=== PATIENT | male | born 1955 | race Caucasian/White ===

== ENCOUNTER 2019-06-06 14:47 | Emergency (ER) | payer BC ==
[2019-06-06 16:01] LABS: #Basophils 0.1 thou/uL (0.0-0.2); #Eosinphils 0.2 thou/uL (0.0-0.7); #Lymphocytes 2.3 thou/uL (1.20-3.40); #Monocytes 0.8 thou/uL (0.11-0.59); #Neutrophils 4.2 thou/uL (1.40-6.50); %Eosinophils 2.8 % (0.0-10.0); %Lymphocytes 30.5 % (21.0-51.0); %Monocytes 10.8 % (0.0-10.0); %Neutrophils 54.9 % (42.0-75.0); Hemoglobin 15.2 g/dL (14.0-18.0); Mean Corpuscular HGB CONC 35.1 g/dL (32.0-36.0); Mean Corpuscular Hemoglobin 31.6 pg (27.0-31.0); Mean Corpuscular Volume 90.1 fL (78.0-98.0); Mean Platelet Volume 7.4 fL (7.4-10.4); Platelet Count 218 thou/uL (130-400); RBC Distribution Width 13.1 % (11.5-14.5); White Blood Cell (WBC) Count 7.7 thou/uL (4.8-10.8)
[2019-06-06 16:28] LABS: ALT (SGPT) 18 U/L (8-55); AST (SGOT) 16 U/L (5-34); Albumin 4.5 g/dL (3.4-4.8); Alkaline Phosphatase 56 U/L (40-150); Anion Gap 11 mmol/L (10-20); BUN (Urea Nitrogen) 21 mg/dL (8.4-25.7); Bilirubin, Total 0.8 mg/dL (0.2-1.2); Calc. Creatinine Clearance 0 mL/min (70-130); Carbon Dioxide 26 mmol/L (23-31); Chloride 103 mmol/L (98-107); Estimated GFR-MDRD 59; Globulin 2.4 g/dL (2.4-3.5); Glucose 108 mg/dL (80-115); Potassium 4.3 mmol/L (3.5-5.1); Protein, Total 6.9 g/dL (5.8-8.1); Sodium 136 mmol/L (136-145)
--- NOTE | 2019-06-06 17:14 | RAD ---
EXAM: CHEST ONE VIEW PORTABLE: 06/06/19 HISTORY: Multiple strokes. Numbness of tongue. COMPARISON: 10/29/08. FINDINGS: Heart size is within normal limits. The lungs are clear. No confluent pneumonia, overt edema, or pleu ral effusion. IMPRESSION: No acute intrathoracic disease, stable from prior study. POS: ENRIKE
--- NOTE | 2019-06-06 17:42 | CT ---
CT Brain WO Con: 06/06/2019 4:46 PM CLINICAL HISTORY: History of stroke with numbness in the tongue. IMAGING TECHNIQUE: Multiple CT images were obtained of the brain without IV contrast. COMPARISON: None. FINDINGS: Infarct: No acute infarct is evident. There is mild chronic small vessel white matter ischemic gibbs e. Hemorrhage: None.. Hydrocephalus: None.. Basal cisterns: Normal.. Cerebral parenchyma: There is mild generalized cerebral atrophy.. Midline shift: None.. Cerebellum: Normal. Brainstem: Normal. OTHER: Calvarium: Intact.. Visualized Paranasal sinuses: Clear.. Extracranial soft tissues:Normal. IMPRESSION: No acute intracranial abnormality. Mild chronic small vessel white matter ischemic change. Mild cerebral atrophy
[2019-06-06 18:02] LABS: INR-International Normal Ratio 2.1; PTT 45.6 SEC (22.9-36.1); Prothrombin Time 23.8 SEC (12.0-14.7)
--- NOTE | 2019-06-08 12:07 | EKG ---
Test Reason : Blood Pressure : / mmHG Vent. Rate : 078 BPM Atrial Rate : 078 BPM P-R Int : 154 ms QRS Dur : 088 ms QT Int : 386 ms P-R-T Axes : 034 026 056 degrees QTc Int : 440 ms Normal sinus rhythm Normal ECG Confirmed by LATONIA BELL MD ([id number]), makeup editor KARI FLORES ([id number]) on 06/08/2019 12:06:49 PM Referred By: Confirmed By:LATONIA BELL MD
== END 2019-06-06 19:10 | disposition home or self-care (01) ==
LOC: ERS 14:47
DX: R42 Dizziness and giddiness (principal); E03.9 Hypothyroidism, unspecified; Z79.899 Other long term (current) drug therapy; Z79.01 Long term (current) use of anticoagulants
CPT/HCPCS: 36415; 70450; 71045; 80053; 85025; 85610; 85730; 93005

== ENCOUNTER 2019-10-14 09:35 | Inpatient (IN) | payer BC ==
--- NOTE | 2019-10-14 09:52 | CT ---
EXAM: CT brain without contrast HISTORY: Right arm weakness and facial drooping. COMPARISON: 06/06/2019 TECHNIQUE: Multiple contiguous axial images were obtained and a CT of the brain without contrast. FINDINGS: There is an area of encephalomalacia in the left temporal lobe which has developed since th e prior examination. Nonspecific hypodensity is seen in the right cerebellar hemisphere. There is no evidence of hydrocephalus, intracranial hemorrhage, or extra-axial fluid collection. The calvarium and overlying soft tissues are unremarkable. The visualized paranasal sinuses and masto id air cells are well aerated. IMPRESSION: 1. Nonspecific hypodensity in the right cerebellar hemisphere could potentially represent an acute in farction. 2. Development of encephalomalacia in the left temporal lobe likely represents a remote area of infar ction. Dr. Tovar notified of findings at 9:50 AM on 10/14/2019.
[2019-10-14 09:59] LABS: #Basophils 0.1 thou/uL (0.0-0.2); #Eosinphils 0.2 thou/uL (0.0-0.7); #Lymphocytes 1.7 thou/uL (1.20-3.40); #Monocytes 0.8 thou/uL (0.11-0.59); #Neutrophils 4.2 thou/uL (1.40-6.50); %Basophils 0.9 % (0.0-1.0); %Eosinophils 2.8 % (0.0-10.0); %Lymphocytes 24.5 % (21.0-51.0); %Monocytes 10.9 % (0.0-10.0); %Neutrophils 60.9 % (42.0-75.0); Hemoglobin 15.1 g/dL (14.0-18.0); Mean Corpuscular HGB CONC 34.4 g/dL (32.0-36.0); Mean Corpuscular Hemoglobin 31.8 pg (27.0-31.0); Mean Corpuscular Volume 92.4 fL (78.0-98.0); Mean Platelet Volume 7.1 fL (7.4-10.4); Platelet Count 211 thou/uL (130-400); RBC Distribution Width 12.6 % (11.5-14.5); Red Blood Cell (RBC) Count 4.74 mill/uL (4.70-6.10); White Blood Cell (WBC) Count 6.9 thou/uL (4.8-10.8)
[2019-10-14 10:05] LABS: INR-International Normal Ratio 1.2; PTT 30.6 SEC (22.9-36.1); Prothrombin Time 14.9 SEC (12.0-14.7)
[2019-10-14 10:18] LABS: ALT (SGPT) 30 U/L (8-55); AST (SGOT) 23 U/L (5-34); Albumin 4.1 g/dL (3.4-4.8); Alkaline Phosphatase 67 U/L (40-110); Anion Gap 13 mmol/L (10-20); BUN (Urea Nitrogen) 13 mg/dL (8.4-25.7); Bilirubin, Total 0.8 mg/dL (0.2-1.2); CK (CPK) 49 U/L (30-200); Calc. Creatinine Clearance 0 mL/min (70-130); Carbon Dioxide 23 mmol/L (23-31); Chloride 106 mmol/L (98-107); Estimated GFR-MDRD 66; Globulin 1.9 g/dL (2.4-3.5); Glucose 124 mg/dL (80-115); Potassium 4.5 mmol/L (3.5-5.1); Sodium 137 mmol/L (136-145)
--- NOTE | 2019-10-14 10:32 | CT ---
CT angiogram head CT angiogram neck: 10/14/2019 COMPARISON: None HISTORY: Level 1 stroke, right arm weakness and right-sided facial droop TECHNIQUE: Axial CT imaging at 1.25 mm intervals through the head and neck with IV contrast using CT angiogram protocol with coronal and sagittal 3-D reformatted imaging FINDINGS: Imaged lung apices are unremarkable. The imaged paranasal sinuses and mastoid air cells are well aerated. The retroantral fat and the parapharyngeal fat is clear bilaterally. Bilateral parotid and submandibu lar glands are unremarkable. Limited assessment of the aerodigestive tract demonstrates no acute findings. There are 2 borderline enlarged lymph nodes within the neck on the left measuring up to 1 cm at the a xial level of the thyroid gland. A bovine arch is noted. There is an unremarkable appearance at the origin of the innominate artery, r ight subclavian artery, right common carotid artery, left common carotid artery, left subclavian artery. Origin of the left vertebral artery is grossly unremarkable, partially obscured by venous contrast. R ight vertebral artery origin is unremarkable. There is no hemodynamically significant stenosis involving the vertebral artery on either side. On the basis of NASCET criteria, no hemodynamically significant stenosis of the common carotid or int ernal carotid artery noted on either side. At the origin of the internal carotid artery on the left there is a focal area atherosclerotic plaque representing a combination of hard and soft plaque, del uring approximately 1.4 cm in craniocaudal dimension. The basilar artery is patent. There is a moderate degree of stenosis involving the distal aspect of t he basilar artery, best seen on axial image 209 and coronal image 54. There is mild stenosis at the origin of the right P1 segment and there is moderate stenosis at the origin of the left P1 segment. There is a filling defect within the distal aspect of the M1 segment on the left measuring approximat yane 6 mm in length, best seen on axial image 213 extending to the level of the M1 bifurcation. M2 branches appear patent on the left. M1 segment on the right is patent. Anterior cerebral arteries and A1 segment appear unremarkable bila terally. Review of osseous structures demonstrates no worrisome lytic or blastic lesions. IMPRESSION: There is a distal left M1 thrombus involving the distal 6 mm of the left M1 segment. Areas of stenosis involving the posterior circulation including the distal basilar artery and the pro ximal aspect of the P1 segments bilaterally. Results were discussed with Dr. Tovar at 1020 AM 10/14/2019.
--- NOTE | 2019-10-14 12:47 | CT ---
CT angiogram head CT perfusion of the head: 10/14/2019 11:39 AM COMPARISON: CT angiogram of the head performed earlier on 10/14/2019 HISTORY: Distal M1 clot noted on the left on prior CT angiogram TECHNIQUE: Axial CT imaging obtained at 1.25 mm intervals from vertex through skull base with IV cont rast using CT angiogram protocol. In addition, CT perfusion maps were obtained of the brain FINDINGS: Repeat CT angiogram imaging demonstrates a focal area of moderate stenosis involving the di stal aspect of the basilar artery, best seen on axial image 101. Bilateral posterior cerebral arteries are patent. There is proximal P1 stenosis bilaterally, mild/moderate in severity, left great er than right. As seen on the prior examination, there is a focal area of thrombosis of the distal M1 segment on the left. Distal left M1 segment appears expanded. M2 branches on the left appear patent. Right A1 segment and left A1 segment patent. Bilateral anterior cerebral arteries appear patent. M1 s egment on the right and right MCA bifurcation appear unremarkable. CT PERFUSION: The CT perfusion maps demonstrate a large area of increased mean transit time involving the majority of the MCA territory on the left. The axial blood volume imaging demonstrates slight increased blood volume within the MCA territory on the left and the arterial blood flow imaging demon strates slightly decreased blood flow within the MCA territory on the left. IMPRESSION: Clot with expansion involving the distal M1 segment on the left. The perfusion imaging gore ggest a large area of ischemia without evidence for are completed infarction involving the majority of the left MCA territory. Results were discussed with Dr. Nicole at approximately 12:40 PM 10/14/2019 .
[2019-10-14] MEDS ORDERED: Heparin 10,000 UNITS/1 ML VIAL ONE (12:51)
[2019-10-14] MEDS ORDERED: Heparin (Artline) 1,000 ML ONE (12:51)
--- NOTE | 2019-10-14 13:36 | CT ---
HEAD CT: DATE: 10/14/2019. TIME: 1:09 p.m. COMPARISON: 10/14/2019 at 9:42 a.m. History Acute stroke symptoms. FINDINGS: There has been interval development of a focal area of hyperdensity within the posterior left cerebra l hemisphere in the superior left temporoparietal region, best seen on image 17, measuring approximat yane 1.2 cm in transverse dimension. This is suspicious for interval development of a small focus of hemorrhage or enhancement. Nonspecific area of hyperenhancement would be atypical in this location. Hemorrhage could be confirmed with axial gradient echo sequence. There is mild prominence of the lateral ventricles, stable. Images paranasal sinuses and mastoid air cells are well aerated. IMPRESSION: Findings suspicious for possible interval development of a small focus of intracranial hemorrhage or abnormal enhancement measuring 1.1 cm on the left as detailed above. Perhaps this represents interva l development of an area of hemorrhage infarction. Axial gradient echo MRI could be performed acutel y to confirm possible hemorrhage in this region. Results discussed with Dr. Nicole at 1:20 p.m. 10/14/2019. CODE CR POS: SHABBIR
[2019-10-14] MEDS ORDERED: Ondansetron ODT 4 MG TAB SL PRN (13:40)
[2019-10-14] MEDS ORDERED: Ondansetron PF 4 MG/2 ML Vial IVP PRN (13:40)
[2019-10-14] MEDS ORDERED: Acetaminophen 325 MG TAB PO PRN (13:40)
--- NOTE | 2019-10-14 14:29 | CON ---
DATE OF CONSULTATION: 10/14/2019 Mr. Arredondo is a 64-year-old gentleman with a history notable for strokes dating back to this past summer. His states that over the past 4 to 5 weeks, he has also had a substantial cognitive decline to the point where he has been unable to work. He has also been recently diagnosed with partial seizures, which have been treated by Dr. Irizarry and manifest as difficulty with speech. This morning, shortly after 8 o'clock, she heard a noise and found her on the kitchen floor. He was able after that point in time to mobilize on his own to the bedroom where again she found him down after having fallen. At that point, he was unable to assist himself up. She activated EMS, and they brought him to the ER where he underwent imaging. He had a noncontrast CT performed, which was initially negative for hemorrhage. He had a CT angiogram performed thereafter, which suggested occlusion or partial occlusion of blood flow into the left distal aspect of the middle cerebral artery at the M1 segment. Of note, he does have a prior diagnosis of the MCA stenosis per notes from Dr. Irizarry, although I have not reviewed any imaging to reveal the degree of stenosis. Over the course of his ER evaluation, his symptoms could have fluctuated from almost back to baseline to difficulty with speech and right dense hemiparesis. These changes occurred several times over a few hours. He eventually underwent a CT perfusion study, which showed increased mean transit time, and no evidence of infarct. It did however reveal an abnormality on the left side, which prompted an updated CT scan, which showed evidence for hemorrhage. The patient is also on Xarelto. Due to the above findings, he was not given tPA. Secondary to hemorrhage, I chose not to pursue intervention. I did examine him right around the time of most recent CT scan, and his symptoms again were improving. He was antigravity, and he was able to speak. He did have a facial droop. Mr. Arredondo will be admitted to the ICU under the care of our hospitalist colleagues. He will need PT, OT and rehab evaluation. Should also consult Neurology for further evaluation. His symptoms are somewhat peculiar and that he has had waxing and waning symptoms with evidence of what may be ischemic stroke as well as hemorrhagic stroke. He has also had a rather abrupt cognitive decline over the past 4 weeks. Job ID: [id number] [facility]
[2019-10-14] MEDS ORDERED: hydrALAZINE 20 MG/ML VIAL SLOW IVP PRN (17:23)
--- NOTE | 2019-10-14 17:33 | HP ---
PRIMARY CARE PHYSICIAN: Unknown. NEUROLOGIST: Dr. Irizarry. CHIEF COMPLAINT: Altered mental status, starting at approximately 8:05 a.m. HISTORY OF PRESENT ILLNESS: A 64-year-old male with past medical history of paroxysmal atrial fibrillation, history of stroke in March 2019, hospitalized at [facility] of unclear etiology with negative Holter monitoring, placed on Xarelto and Lipitor, hypertension, and recent neurocognitive decline over the past 1 to 2 months, recently initiated on Aricept and weeks ago, suspected to have seizure-like activity, started on Keppra, who was at home this morning when heard a thud in the kitchen and found her in the kitchen floor at approximately 8:05 a.m. She helped to drag her up into the bed and noted that he was weak on the right side, but able to speak coherently. Minutes later , when she returned to the room, she noted that the patient had slid across the bed and again had fallen on the ground, again weak on the right side, but now with notable right facial droop and slurring of speech, prompting her to call EMS. En route to emergency department, the patient's neurological symptoms improved. An initial noncontrast head CT in the ER suggested a possible cerebellar infarction. The patient's neurological status declined to NIH Stroke Scale of 14 to 42. A CTA suggested a possible distal left M1 thrombus extending to the M1 bifurcation as well as stenosis in the posterior circulation and a focal plaque 1.4 cm in the left ICA origin. The patient's last dose of Xarelto was yesterday evening. Neuro-interventionalist was notified by the ER and initial plans were to take the patient to the cardiac catheterization lab. A repeat head CT was obtained in the ER, revealing a posterior left hyperdensity 1.2 cm, suspicious of hemorrhage, and neurointerventional procedure was canceled and the patient was admitted to ICU for further monitoring. At bedside, the patient is accompanied by spouse. ICU nurse notes the patient' s NIH stroke scale at that time was 4 out of 42, but has worsened during my evaluation. Spouse notes the patient has had waxing and waning of his neurological status all day today. The patient is oriented to person, but otherwise does not answer appropriately, but does follow simple commands. No further history can be obtained. The patient is in sinus rhythm on the telemetry monitoring. PAST MEDICAL HISTORY: Paroxysmal atrial fibrillation, hospitalization in March 2019 at [facility] for acute stroke with 2-week negative Holter monitoring, placed on Xarelto and statin, hypertension, recent cognitive decline, initiated on donepezil, and weeks ago having seizure-like activity, initiated on Keppra twice daily. PAST SURGICAL HISTORY: None. SOCIAL HISTORY: The patient is , lives at home with his spouse. He admits to remote alcohol use, none currently. Denies tobacco use. He was working up until one month ago when his neurological status significantly declined and he had to stop working. ALLERGIES: NONE DOCUMENTED. REVIEW OF SYSTEMS: Pertinent positives as per HPI. Remainder of review of systems negative. Limited by the patient's nonverbal state. HOME MEDICATIONS: Will be reviewed as per admission medication reconciliation. FAMILY HISTORY: The patient's mother from hemorrhagic stroke. PHYSICAL EXAMINATION: VITAL SIGNS: In the ER, blood pressure ranges from 109/70 to 132/74; pulse 77 to 82, sinus rhythm; oxygen saturation 98% on room air; respirations 14 to 17 and unlabored; temperature 99.0. GENERAL APPEARANCE: Elderly male, who is awake, alert, oriented to person, and follows basic commands with notable facial droop and broken speech. HEENT: Normocephalic and atraumatic. Facial asymmetry noted with slurring of speech. Pupils are equally round. Extraocular muscles are intact. NECK: Supple. CARDIOVASCULAR: S1 and S2, regular rate and rhythm. No harsh murmurs. No reproducible chest wall tenderness to palpation. LUNGS: Bilateral equal air entry on anterior auscultation. Nonlabored respirations. No wheezing or rales. ABDOMEN: Soft, nontender, nondistended. EXTREMITIES: No edema, cyanosis, or deformities. SKIN: Warm to touch without rash, pallor, or abrasion. NEUROLOGIC: On evaluation, there is notable facial droop with slurred speech. There is a drift in the right arm with decreased right hand grinder hand. There is drift in the right leg. The left upper extremity and left lower extremity are unremarkable. Sensation reportedly intact throughout. Gait was not assessed. LABORATORY VALUES: WBC 6.9, hemoglobin and hematocrit are 15.1/43.8, platelets 211. Coagulation profile; INR 1.2, PT 14.9. Chemistry; sodium 137, potassium 4.5, chloride 106, bicarb 23, glucose 124, BUN and creatinine are 13/1.12, GFR 66. LFTs unremarkable. Troponin-I negative x1. IMAGING DATA: 1. An initial noncontrast head CT on 10/14/2019, suggests a nonspecific hyperdensity in the right cerebellar hemisphere, which could represent an acute infarction. 2. A CTA of the [place] of [place] suggests a distal left M1 thrombus involving the distal 6 mm of the left M1 segment. Areas of stenosis involving the posterior circulation. 3. A CTA head and neck with brain perfusion on 10/14/2019, suggests a clot with expansion involving the distal M1 segment on the left. The perfusion imaging suggests a large area of ischemia without evidence for completed infarction involving majority of the left MCA territory. 4. Repeat CT brain on 10/14/2019, suggests finding suspicious for possible interval development of a small focus of intracranial hemorrhage measuring 1.1 cm on the left. Perhaps this represents interval development of area of hemorrhagic infarction. Axial gradient echo could be performed acutely to confirm hemorrhage in this region. ASSESSMENT: 1. Acute stroke with thrombus and hemorrhage. The patient will be admitted as inpatient status to ICU and placed on telemetry monitoring with ongoing serial neuro checks. Neuro-interventionalist consulted by ER. ICU Team will follow in consultation. We will consult Neurology for further evaluation. We will hold anticoagulants. Continue serial neurological checks. Monitor for neurological decompensation. The patient reports a remote history of atrial fibrillation and notes recent hospitalization in March 2019 at [facility] for acute stroke with 2-week Holter monitoring unremarkable and is being started on Xarelto and statin , compliant since that time. The last dose of Xarelto was on 10/13/2019 evening. Furthermore, spouse notes progressive neurological decline over the past 1 to 2 months and recent initiation weeks ago by neurologist on [facility] for suspected seizure-like activity. Continue remainder of neurodiagnostic workup as per Neurology. Noted CTA head and neck as well as CT perfusion suggesting left M1 thrombus, large vessel occlusion. The patient was initially scheduled to go to the cardiac catheterization lab for neuro-intervention, but due to concerns for intracranial hemorrhage, the procedure was canceled. We will also consult PT and OT and Speech Therapy, and maintain n.p.o. until formal evaluations. 2. History of stroke in March 2019, required hospitalization at [facility]. 3. History of paroxysmal atrial fibrillation. 4. History of possible recent seizures, initiated on Keppra. 5. History of remote alcohol use. 6. Obesity, BMI 32. Deep venous thrombosis prophylaxis: Bilateral lower extremity sequential compression devices. Avoid chemical anticoagulation. CODE STATUS: Full code. DISPOSITION: The patient will be admitted as inpatient status to ICU. Job ID: [id number] [facility]TD[facility]
--- NOTE | 2019-10-14 18:50 | CON ---
DATE OF CONSULTATION: 10/14/2019 SERVICE: Pulmonary Medicine. REASON FOR CONSULTATION: ICU patient. HISTORY OF PRESENT ILLNESS: The patient is a very pleasant 64-year-old white male with past medical history significant for a CVA and recent onset of dementia. Either way, he is in his usual state of health this morning when he woke up. His speech was fluent. He did not seem to have any neurologic deficits. He then fell. His went in the room to get him up. She did not notice any speech issues at that point, but he was weak on one side. This abruptly improved. She got him off the floor into a chair and was ultimately able to get him back into the bedroom. In the process of her getting him to lie down in bed, he subsequently fell again. At this time, he had slurred speech, and significant/profound weakness in the right arm. She recognized this as likely stroke symptoms and brought him to the Emergency Department. A CT of the head confirmed that he was having a flow blocking lesion in the cerebral arteries. A repeat CT of the head; however, demonstrated a bleeding area. As such, he was not a candidate for tPA, or a GEGE procedure. As such, he got tucked in the ICU. Prior to this event, he was in his usual state of health and did not have any fevers, chills, cough, sputum production, nausea, or vomiting. He does not have any significant respiratory issues. PAST MEDICAL HISTORY: 1. Hypothyroidism. 2. Chronic back pain. 3. History of CVA. 4. Dementia. 5. Hypertension. 6. Dyslipidemia. PAST SURGICAL HISTORY: 1. Excision of lipoma from left hip. 2. Vasectomy. FAMILY HISTORY: Noncontributory. SOCIAL HISTORY: He drinks alcohol most days of the week. No drug use. Smoking is denied. ALLERGIES: NO KNOWN DRUG ALLERGIES. MEDICATIONS: List of the patient's inpatient medications were reviewed. No specific updates were made at this time. REVIEW OF SYSTEMS: General, head, ears, eyes, nose, throat, cardiovascular, respiratory, GI, , musculoskeletal, neurologic, and skin are negative except as mentioned in the HPI. PHYSICAL EXAMINATION: VITAL SIGNS: Afebrile, pulse 77, blood pressure 142/85, respirations 13, and saturation 100%, currently on room air. GENERAL: The patient is awake and alert, in no apparent distress. LUNGS: Wonderful air entry without any prolonged expiratory phase or wheezing present. HEART: Normal rate. Regular. ABDOMEN: Soft, nontender, and nondistended. Bowel sounds are positive. MUSCULOSKELETAL: No cyanosis or clubbing. No pitting in the bilateral lower extremities. NEUROLOGIC: There is some facial asymmetry, but he demonstrates decent strength throughout bilateral upper and lower extremities. It is roughly symmetric. Reflexes are also symmetric. He has a difficult time with speech. LABORATORY DATA: WBC 6.9, hemoglobin 15.1, and platelets 211,000. INR 1.2. Basic metabolic profile and liver function studies, troponin are all unremarkable. TSH was recently 1.1 with a vitamin B12 level fell within the lower limits of normal. Recent HAROLDO screen was unremarkable. IMAGIN. CT of the brain demonstrates a small 1 cm nidus of intracranial hemorrhage. 2. CTA of the head and neck with perfusion demonstrates a filling deficit in the left distal M1 segment. There is a large area of ischemia without evidence for completed infarction involving the majority of the left MCA territory. 3. CTA of the [place] of [place] demonstrates left M1 segment clot. There is also stenosis involving the [employer]HE. ASSESSMENT: 1. Intraparenchymal hemorrhage. 2. Cerebrovascular accident of the left M1 segment with clot there. 3. Dementia, of recent, rapid onset. 4. History of alcohol abuse. DISCUSSION AND PLAN: The patient will be watched in ICU very closely. We will target a systolic blood pressure of less than 140. He will need frequent neuro checks. If he demonstrates neurologic stability, he could be considered for transition to the floor in 24 to 48 hours. Pulmonary/Critical Care will continue to follow closely. 70 minutes have been devoted to this patient in various activities. I personally reviewed all imaging studies and laboratory data noted within this document. For fifty percent of this time, I was interacting with the patient at the bedside or coordinating care with the care team. For the remainder of the time I was immediately available to the patient in the hospital unit. Job ID: [id number] [facility]
[2019-10-14] MEDS: hydrALAZINE 20 MG/ML VIAL SLOW IVP PRN ×2 (21:07→23:05)
[2019-10-15] MEDS: Labetalol HCl 100 MG/20 ML VIAL SLOW IVP PRN ×4 (00:13→20:33)
[2019-10-15] MEDS: hydrALAZINE 20 MG/ML VIAL SLOW IVP PRN ×2 (06:07→15:34)
--- NOTE | 2019-10-15 10:35 | PRG ---
DATE OF SERVICE: 10/15/2019 SUBJECTIVE: The patient is doing reasonably well, all things considered. He is still confused according to nursing staff. OBJECTIVE: VITAL SIGNS: On exam, temperature is 98.2, pulse 93, blood pressure 139/89, O2 saturations 100%. A 24-hour intake 870, output 1850. HEENT: Remarkable for right-sided facial droop and inability to keep his right eye closed. NECK: No adenopathy or JVD. LUNGS: Clear. CARDIAC: S1 and S2. Regular. ABDOMEN: Soft. EXTREMITIES: He has weak early childhood special educator with his right hand compared to the left. Able to move his legs without difficulty. LABORATORY DATA: No labs were obtained today. ASSESSMENT: 1. Intraparenchymal hemorrhage with cerebrovascular accident. 2. Dementia. 3. History of alcohol abuse. PLAN: The patient is being monitored in the ICU under the direction of the neurosurgeons and the hospitalist team. There is little to add from pulmonary standpoint and can be transferred to the stroke floor at any time. I will go ahead and add some Pepcid for GI prophylaxis. Job ID: [id number]
--- NOTE | 2019-10-15 15:01 | PDOC.EVN ---
Event Note - Event Note Event Note: [id number] Progress
[2019-10-15] MEDS ORDERED: FLU VACC QS2019-20(6MOS UP)/PF 60 MCG/0.5 ML SYRINGE IM ONE (15:30)
--- NOTE | 2019-10-15 15:46 | MRI ---
MRI BRAIN WITH AND WITHOUT CONTRAST: 10/15/2019 HISTORY: A 64-year-old male with acute stroke. Possibility of acute left parietal hemorrhage questioned on CT perfusion study yesterday. COMPARISON: No prior MRIs. Recent brain CTs of 10/14/2019 and 06/06/2019. TECHNIQUE: Multiple sequences obtained in axial, sagittal, and coronal planes; pre and post IV injection of gado linium-based contrast agent: MultiHance [address] Rodriguez discussed the findings by telephone with Dr. Jatinder Irizarry at 3:06 p.m. on 10/15/2019. FINDINGS: An approximately 2.5 x 1.5 cm region of restricted diffusion involving the upper portion of the left basal ganglia and the left caudate body and periventricular white matter, with associated moderate T2 hyperintensity, represents acute infarction of lenticulostriate branch territory of left middle cere bral artery. On post contrast T1 weighted thin slice images, a filling defect is visualized at the lateral periphe ral aspect of the M1 segment of the left middle cerebral artery, consistent with thrombus. This has m agnetic susceptibility blooming artifact on gradient echo sequence. The branches of the left MCA trif urcation are patent and do have blood flow. There is high concentration of gadolinium-based contrast agent in the lumen of the left M1 segment proximal to that clot. At the left temporal pole (temporal tip) there is an approximately 2 x 3 x 1.5 cm lesion. It consist s of a central cystic component that follows CSF signal on all pulse sequences, surrounded by an ill defined patchy halo of T2 hyperintensity. This lesion was present on the 10/14/2019 CT but not on the 06/06/2019 CT, probably representing an infarction that occurred some time between those two CTs. The focal hyperdensity near the junction between the left posterolateral temporal, parietal and occip ital lobes noted on the recent CT, corresponds to a irregularly shaped, approximately 1.5 x 1 x 1 cm patchy, gyriform, strong enhancement, associated with patchy, ill defined T2 hyperintensity, and no e vidence of hemorrhage, on this MRI. This is appears to be a leptomeningeal (pial) lesion. There are much smaller and very numerous tiny, subcentimeter foci of such leptomeningeal enhancement throughout the bilateral cerebellar folia. Some of these have blooming artifact on the gradient echo sequence, consistent with associated microhemorrhages. These all have adjacent parenchymal T2 hyperin tensities, consistent with associated parenchymal small foci of edema. This edema is greatest at the medial aspect of the right cerebellar hemisphere. Similar tiny microhemorrhages associated with patchy T2 hyperintensities are present also in the cont ralateral right parietal lobe. There is an approximately 1.2 x 0.9 cm patch of moderate T2 hyperintensity in the right cerebellum as sociated with strongly restricted diffusion, which may represent acute right cerebellar infarction. Although there is mild ventriculomegaly, this has not changed since 06/06/2019. No mass effect or mid line shift. No dural venous sinus thrombosis. IMPRESSION: 1. Moderate sized acute infarction in the left corpus striatum (lenticulostriate branch territory of left middle cerebral artery). 2. The hyperdense lesion in the left [id number]-[id number]-[id number] junction, demonstrated on the CT, is a strongly enhancing leptomeningeal lesion, not a hemorrhage. It could represent a leptomeningeal meta stasis (leptomeningeal carcinomatosis or leptomeningeal lymphomatosis). 4. Numerous tiny foci of leptomeningeal enhancement with adjacent vasogenic edema in the bilateral ce rebellar folia. These could also represent leptomeningeal carcinomatosis or leptomeningeal lymphomato sis. Some of these are associated with microhemorrhages. 5. A region of similar findings in the right parietal region with the same differential diagnosis. 6. Nonocclusive thrombus in the M1 segment of the left middle cerebral artery. 7. A 3 cm intra-axial lesion in the anterior left temporal lobe without enhancement. This may represe nt an old or subacute infarction. 8. Small focal right cerebellar acute infarction. CODE CR ALB[place] R POS: TPC
--- NOTE | 2019-10-15 16:09 | CON ---
DATE OF CONSULTATION: 10/15/2019 Mr. Arredondo was admitted with acute onset of right hemiparesis. Initial CT showed some possible hemorrhage in the left parietal region. CT angiogram showed some stenosis on the left M1 segment as well. He was having waxing and waning deficits in the emergency room. His deficits have become fairly static at this point. He has had some persistent hypertension. His Xarelto has been held. Prior to this, he was seen in the office earlier this month. He has history of a prior minor stroke in March. He developed what sounded to be some focal seizure activity. He was started on Keppra. Unfortunately, the Keppra caused significant mood changes that his has since discontinued it. She has seen some intermittent twitching in his right leg since admission. On exam, at this point, he has had significant expressive aphasia. He seems to have good comprehension. There is a right facial droop. The right upper extremity is 0/5, he has at least 3/5 movement in the right leg. He has upgoing toe on the right. His also notes that over the last 2-3 weeks, there has been a rapid decline in his short-term memory. He had actually quit working this month secondary to his cognitive changes. There is concern for the possibility of cerebral amyloid angiopathy given these new clinical features, suggest we get an MRI of the brain to reassess whether he has been having micro bleeds. More than likely, he will have to be kept off Xarelto. We will go ahead and start Dilantin 300 mg at night. I will follow up in his care. Job ID: [id number]
[2019-10-15] MEDS: Famotidine/PF 20 mg/2ml Vial SLOW IVP SCH (20:33)
[2019-10-16] MEDS: hydrALAZINE 20 MG/ML VIAL SLOW IVP PRN ×2 (01:47→20:18)
[2019-10-16] MEDS: Famotidine/PF 20 mg/2ml Vial SLOW IVP SCH ×2 (08:36→21:00)
[2019-10-16] MEDS ORDERED: Iopamidol 370 76% 50 ML VIAL FS ONE (09:55)
[2019-10-16] MEDS ORDERED: Iopamidol-370 76% 500 ML 1 ML ONE (09:55)
[2019-10-16] MEDS: Labetalol HCl 100 MG/20 ML VIAL SLOW IVP PRN (10:20)
[2019-10-16] MEDS ORDERED: Dexamethasone 4 mg/ml Vial SLOW IVP SCH (14:00)
--- NOTE | 2019-10-16 14:10 | PDOC.EVN ---
Event Note - Event Note Event Note: [id number] progress
[2019-10-16] MEDS: Sodium Chloride 0.45% 1,000 ML IV SCH (14:12)
--- NOTE | 2019-10-16 14:30 | PRG ---
DATE OF SERVICE: 10/16/2019 SUBJECTIVE: The patient continues to be symptomatic with slurring of speech, expressive aphasia, right-sided weakness, and right facial droop. The patient was seen by neurologist. MRI of the brain was done, results were noted. There is concern for leptomeningeal lesions/?metastasis. OBJECTIVE: GENERAL: The patient is awake with right facial droop and expressive aphasia. VITAL SIGNS: Blood pressure 170/100, pulse is 94, temperature is 98.1. HEAD AND NECK: Normocephalic and atraumatic. Neck is supple. CHEST: Fair bilateral air entry. HEART: S1 and S2. Regular. ABDOMEN: Soft, nontender. Bowel sounds are present. NEUROLOGIC: Awake, alert, with right facial droop, right-sided weakness, expressive aphasia, slurred speech. IMAGING STUDIES: 1. MRI of the brain, results noted. 2. 2D echo, results reviewed. ASSESSMENT: 1. Acute CVA. 2. Brain metastasis? 3. Paroxysmal atrial fibrillation. 4. History of CVA. 5. Possible history of recent seizures. PLAN: 1. Continue with close neuromonitoring. 2. Awaiting Neurology followup regarding MRI findings. 3. Consult Oncology, ?brain metastasis. 4. DVT prophylaxis as appropriate. 5. Case discussed with the patient and family. Job ID: [id number]
--- NOTE | 2019-10-16 14:51 | CT ---
EXAM: CT of the chest with contrast CT of the abdomen and pelvis with contrast HISTORY: Leptomeningeal intracranial metastatic disease COMPARISON: None TECHNIQUE: 1. Multiple contiguous axial images were obtained in a CT the chest with contrast. Coronal and sagitt al reformats were performed. 2. Multiple contiguous axial images were obtained and a CT of the abdomen and pelvis with contrast. O ral contrast was administered. Coronal and sagittal reformats were performed. FINDINGS: CT CHEST: HEART: Normal in size without focal cardiac abnormality MEDIASTINUM: No hilar or mediastinal lymphadenopathy. LUNGS: No focal infiltrates, nodules, or masses. Bilateral dependent atelectasis. PLEURAL SPACE: No pneumothorax or pleural effusion. CHEST WALL SOFT TISSUES: Unremarkable CT ABDOMEN/PELVIS: ABDOMEN: LIVER: within normal limits. BILE DUCTS: Normal caliber. GALLBLADDER: Distended with possible hypodense gallstones in the dependent aspect. PANCREAS: within normal limits. SPLEEN: within normal limits. ADRENALS: within normal limits. KIDNEYS: within normal limits. PELVIS: REPRODUCTIVE ORGANS: No pelvic masses. URETERS: within normal limits. BLADDER: within normal limits. PERITONEUM: No ascites or free air, no fluid collection. BOWEL: Normal caliber. NG tube located in the stomach. MESENTERY AND RETROPERITONEUM: No enlarged mesenteric or retroperitoneal lymph nodes. VESSELS: Normal. ABDOMINAL WALL: within normal limits. OSSEOUS STRUCTURES: Degenerative changes in the spine. IMPRESSION: 1. No evidence of suspicious intrathoracic or intra-abdominal/pelvic primary neoplasm.. 2. Possible cholelithiasis
--- NOTE | 2019-10-16 15:04 | PRG ---
DATE OF SERVICE: 10/16/2019 SERVICE: Pulmonary Medicine. INTERVAL HISTORY: MRI was performed. It demonstrated the stroke. That being said, an enhancing area was possibly secondary to a malignant process. It is being further investigated currently. The patient denies any current chest discomfort, fevers, or chills. He is breathing comfortably. Hemodynamically, he has remained stable. PHYSICAL EXAMINATION: VITAL SIGNS: Afebrile, pulse 95, blood pressure 134/93, respirations 23, saturation 99% on room air. GENERAL: The patient is awake and alert, in no apparent distress. LUNGS: Very good air entry with no prolonged expiratory phase or wheezing present. HEART: Normal rate, regular. ABDOMEN: Soft, nontender, and nondistended. Bowel sounds are positive. MUSCULOSKELETAL: No cyanosis or clubbing. No pitting in the bilateral lower extremities. IMAGING: MRI of the brain demonstrates moderate-sized acute infarction, involving the left corpus striatum (portion of the MCA). There is also enhancing leptomeningeal lesion, which is not a hemorrhage. Numerous tiny foci of leptomeningeal enhancement are also present. Nonocclusive thrombus in the M1 segment of the left middle cerebral artery. Small foci of right cerebellar acute infarction. Echocardiogram demonstrates normal ejection fraction. 1/3 diastolic dysfunction is present. There is also severe aortic stenosis. ASSESSMENT: 1. Acute cerebrovascular accident of the left middle cerebral artery territory. 2. Brain mass with meningeal enhancement, not a hemorrhage. 3. Dementia. 4. History of alcohol abuse. 5. Aortic stenosis, severe. DISCUSSION AND PLAN: The patient is stable for transition out of the ICU to the stroke unit. Pulmonary will continue to follow for the time being. Agree with steroids. Since the patient has been in the hospital for 2 days now, I do not believe he would benefit from additional interventions for the left MCA stroke. Job ID: [id number]
--- NOTE | 2019-10-16 15:17 | PRG ---
DATE OF SERVICE: 10/16/2019 Mr. Arredondo apparently had some agitation overnight. He ended up in restraints. He is a bit calmer this morning. He still occasionally restless. He has not shown any improvement in his right-sided weakness and dysarthria compared to yesterday. His vital signs have been stable and he is afebrile. His MRI of the brain with contrast was reviewed with Dr. Rodriguez. He appeared to have multiple enhancing areas suggestive of metastatic disease with leptomeningeal involvement. No significant edema or mass effect associated with it. He has no past history of malignancy. We are going to proceed with a CT survey of the chest, abdomen, and pelvis. I have started him on a low dose of Decadron to see if it helps with his cognitive status. His family was not available to discuss the situation at this juncture. Job ID: [id number]
--- NOTE | 2019-10-17 01:54 | CON ---
DATE OF CONSULTATION: 10/16/2019 HISTORY OF PRESENT ILLNESS: Mr. Arredondo is a 64-year-old gentleman with contusion and altered mental status. Neurosurgery was consulted to evaluate the patient for right-sided facial droop, right-sided extremity weakness, and dysarthria. When I saw the patient today, the majority of his history was provided by his , who is at bedside. She states that the patient had a left MCA occlusion diagnosed in March 2019, at which time, he was placed on Xarelto. She states that in August 2019, he began having generalized weakness, difficulty with short term memory, occasional word finding difficulties, and occasional not making sense when speaking. The patient saw Dr. Irizarry in the first week of September, and there was talk of potential seizures. The patient's states that he had a few episodes where he slumped over and stared his for a period of time without responding, and then afterwards would resume responsiveness. The patient was started on Keppra for the presumed seizures. More recently, on 10/14/2019, the patient experienced 2 falls at home, for which he was evaluated. At that time, the patient was seen by Dr. Nicole for concern of occlusion of the left distal MCA at M1; however, no intervention was pursued and Neurosurgery signed off the case. Since then, multiple brain imaging has been done with findings of left inferior stroke and left parietal lesion with concern for leptomeningeal lesion versus metastatic lesion. During his current admission, the patient has had a CT of the chest, abdomen, and pelvis that was negative for any lesions that appeared cancerous. PHYSICAL EXAMINATION: GENERAL: The patient waxes and wanes between being alert and somnolent. He responds to some questions appropriately, but at times does not make sense when speaking. He has periods of dysphagia and slurred speech; however, at times, his speech is clear and appropriate. The patient was observed multiple times to be rigging towards left into the air as if something was present. HEENT: The patient's pupils were equal, round, and reactive to light. Extraocular movements are intact to the left; however, the patient neglects movement on the right. The patient exhibits no movement of the right side of his body, he does not move his right arms or legs on command. However, he has full 5/5 strength on the left arms and legs, with the exception that he do not bend his left knee on command. The patient is able to wiggle his fingers and toes on the left side, but not on the right. The patient was able to correctly identify a pen and stated its use. He was unable to define an island. The patient is disoriented to time and place, stating that he believes the year to be 2017, but did not know the month and he did not know where he was when asked. IMPRESSION DIAGNOSES: 1. Altered mental status. 2. Left parietal brain lesion, concerning for leptomeningeal lesion versus metastatic lesion. 3. Left middle cerebral artery stroke. 4. On Xarelto, last dose 10/13/2019. 5. On Keppra for possible seizures. PLAN: I have discussed this case and imaging with Dr. Coronado. Plan at this time is to holding steroids on board. I have ordered a lumbar puncture to be performed tomorrow with Interventional Radiology for further evaluation of CSF, cytology, glucose, protein, culture, gram stain, and oligoclonal banding. We will see the patient tomorrow for reevaluation, or sooner for any neurologic changes or concerns. This was a 50-minute initial patient encounter, with greater than 50% of the time was spent in review of records, imaging, evaluation of the patient, examination, and formulation of plan. The remaining time was spent in counseling. Job ID: [id number]
[2019-10-17 04:28] LABS: Phosphorus 3.1 mg/dL (2.3-4.7)
[2019-10-17 04:30] LABS: Anion Gap 15 mmol/L (10-20); BUN (Urea Nitrogen) 16 mg/dL (8.4-25.7); Calc. Creatinine Clearance 127 mL/min (70-130); Calcium 9.5 mg/dL (7.8-10.44); Carbon Dioxide 18 mmol/L (23-31); Chloride 101 mmol/L (98-107); Estimated GFR-MDRD Greater than 90; Glucose 103 mg/dL (80-115); Potassium 3.9 mmol/L (3.5-5.1); Sodium 130 mmol/L (136-145)
[2019-10-17] MEDS: Sodium Chloride 0.45% 1,000 ML IV SCH (06:27)
--- NOTE | 2019-10-17 06:42 | PRG ---
DATE OF SERVICE: 10/17/2019 SERVICE: Pulmonary Medicine. INTERVAL HISTORY: The patient is doing fairly well from Respiratory standpoint. He is breathing comfortably. He remains on room air. He cannot provide much in the way of history. He still has an aphasia. He attends but does not follow any significant commands. That being said, he has very purposeful activity. PHYSICAL EXAMINATION: VITAL SIGNS: Afebrile, pulse 104, blood pressure 117/78, respirations 28, saturation 96%, currently on room air. GENERAL: The patient is awake and alert. He has no apparent distress. HEENT: Normocephalic and atraumatic. Sclerae white. Conjunctivae pink. Oral mucosa is moist without lesions. LUNGS: Decent air entry. The rhonchi are present. There is no prolonged expiratory phase or wheezing appreciated. HEART: Normal rate and regular. ABDOMEN: Soft, nontender, and nondistended. Bowel sounds are positive. MUSCULOSKELETAL: No cyanosis or clubbing. No pitting in the bilateral lower extremities. LABORATORY DATA: Sodium 130. Basic metabolic profile is otherwise unremarkable. Magnesium 2.0, phosphorus 3.1. ASSESSMENT: 1. Acute cerebrovascular accident of the left middle cerebral artery. 2. Brain mass. 3. Dementia, apparently rapidly progressing. 4. History of alcohol abuse. 5. Aortic stenosis, severe. DISCUSSION AND PLAN: The leptomeningeal lesion is being evaluated with an LP initially. We will follow up with the Cytology results of that. At this point, the patient is stable for transition out of the ICU to the medical unit. Physical Therapy, Occupational Therapy will be involved. When he arrives on the floor, he will have no further requirements for inpatient Pulmonary or Critical Care opinion, and I will sign off. Job ID: [id number]
[2019-10-17] MEDS: Sodium Chloride 0.9% 1,000 ML IV SCH (09:51)
[2019-10-17] MEDS: Famotidine/PF 20 mg/2ml Vial SLOW IVP SCH ×2 (09:53→20:18)
[2019-10-17] MEDS ORDERED: Midazolam HCl 2 mg/2 ml Vial ONE (11:08)
--- NOTE | 2019-10-17 11:36 | PRG ---
DATE OF SERVICE: 10/17/2019 This is a 50-minute initial visit note, in which 50 minutes was spent reviewing the imaging record, evaluation, examination of patient, formulation of plan. Greater than 50% time was spent in counseling. I am seeing Mr. Jarrod Arredondo. He is a 64-year-old man with a known history of, what appeared to be, complex partial seizures, managed in the past with Keppra by Dr. Irizarry. He also has vasculopathy with a history of stroke. He presented on October 14 with, what appeared to be, a left MCA stroke with increased mean transit time throughout the left MCA distribution. However, MRI of the brain demonstrated no large-scale evidence of left MCA hemispheric stroke, however, there was right cerebellar diffusion restriction, left temporal diffusion restriction that was faint, left veliz radiata involving the posterior limb of the internal capsule, which is led to dense right hemiplegia. A CT angiogram demonstrated a small area of flow impairment in the left M1. CT scan of the chest, abdomen, and pelvis is negative for obvious abnormality. There was a concern that this could be leptomeningeal disease as there are areas of enhancement on MRI throughout the leptomeninges in particular in the periventricular region of the fourth ventricle near the nodulus and also in the region of restricted diffusion of the right cerebellum. There is also area of patchy enhancement in the left temporal region where there was faint diffusion restriction. He does not enhance in the region of the left veliz radiata and posterior limb of the internal capsule. Labs are fairly unremarkable with exception of hyponatremia of 130, when he was 137 two days ago. He has been on Xarelto for vasculopathy. This has been stopped as I have requested a diagnostic lumbar puncture to assess for multitude of studies. This may be leptomeningeal disease related to carcinomatosis, which hopefully the cytology of the CSF demonstrate this, protein and glucose will also be helpful. I suppose there could be some sort of infectious issue here such as vascular cephalus, although obviously highly unlikely, but we will send for VDRL and various forms of encephalitis panel. He did get one dose of Decadron, I have stopped this as it is a possibility this could be lymphoma or some sort of lymphomatous angiitis. Steroids are notorious for causing lymphoma to disappear temporarily. What I would like to do is get the lumbar puncture today and follow up on this over the weekend. Should it be nondiagnostic, I would like to repeat an MRI of the brain with [facility] protocol early next week with the possibility of the need for a brain biopsy based on whatever enhances. Clinically, what is the cause of this patient's problem is his left diffusion restriction deep in the posterior limb of the internal capsule that has led to right upper motor neuron pattern facial droop and right-sided hemiplegia. While he is alert, he does appear to be confused at times and has had issues with seizure. It appears as if his Keppra has been changed to fosphenytoin. The patient initially refused this, but I have let the nurse and the patient know that it is necessary that he gets this, otherwise, we will be dealing with a very difficult to control seizure disorder superimposed on his current issues. We will follow along closely. Job ID: [id number]
[2019-10-17 12:18] LABS: Color Of CSF Supernatant COLORLESS (Colorless); Tube # 2; Unspun CSF Color COLORLESS (Colorless)
[2019-10-17 12:28] LABS: CSF Source CSF; Clarity Clear (Clear); Tube # 4
[2019-10-17 12:37] LABS: CSF, Glucose 60 mg/dl (40-70); CSF, Protein 69 mg/dL (15-40)
[2019-10-17 12:43] LABS: RBC Count - Manual 1 /cumm (None Seen); WBC/NonHematics Count - Manual 22 /cumm (0-5)
--- NOTE | 2019-10-17 13:20 | PDOC.EVN ---
Event Note - Event Note Event Note: [id number] progress
--- NOTE | 2019-10-17 13:47 | PRG ---
DATE OF SERVICE: 10/16/2019 SUBJECTIVE: The patient continues to have difficulty with speech, slurring and expressive aphasia, right-sided weakness and right facial droop. CT chest, abdomen, and pelvis, no acute pathology. Lumbar puncture was ordered, awaiting results. PHYSICAL EXAMINATION: GENERAL: The patient is awake, alert, with expressive aphasia. VITAL SIGNS: Blood pressure is 140/95, pulse is 97, respiratory rate is 16, and temperature 98.1. HEAD AND NECK: Normocephalic and atraumatic. NECK: Supple. CHEST: Fair bilateral air entry. HEART: S1 and S2. Regular. ABDOMEN: Soft and nontender. Bowel sounds present. NEURO: The patient is awake, alert, with right facial droop, right-sided weakness, expressive aphasia, slurred speech. PSYCH: Unable to assess. EXTREMITIES: No clubbing. No cyanosis. DIAGNOSTIC STUDIES: CT chest, abdomen, and pelvis, reviewed. No acute pathology. ASSESSMENT: 1. Acute cerebrovascular accident. 2. Brain metastases? 3. Paroxysmal atrial fibrillation. 4. History of cerebrovascular accident. 5. History of seizures. PLAN: 1. Continue with close neuro checks. 2. Appreciate Neurology and Neurosurgery input. 3. Lumbar puncture was ordered, old, awaiting for the results. 4. DVT prophylaxis as appropriate. Job ID: [id number]
[2019-10-17 13:49] LABS: Cell Count Non Hematic 10 %; Lymphocytes 90 %
--- NOTE | 2019-10-17 14:48 | CON ---
DATE OF CONSULTATION: REASON FOR CONSULT: Brain lesions. HISTORY OF PRESENT ILLNESS: Mr. Arredondo is a 64-year-old gentleman who presented to the ER with slurred speech and right facial droop. He underwent workup for CVA including a brain MRI. 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 Neurosurgery was consulted and has ordered a lumbar puncture for diagnoses. The patient remains in the ICU, was seen at bedside. No family is present. He has severe expressive aphasia and right hemiparesis. PAST MEDICAL HISTORY: Paroxysmal atrial fibrillation, hypertension, possible seizures. PAST SURGICAL HISTORY: None. ALLERGIES: NO KNOWN DRUG ALLERGIES. HOME MEDICATIONS: 1. Atorvastatin. 2. Aricept. 3. Gabapentin. 4. Keppra. 5. Zestril. 6. Xarelto. FAMILY HISTORY: Hemorrhagic stroke. SOCIAL HISTORY: , lives with his spouse. No alcohol or illicit drug use. REVIEW OF SYSTEMS: Unable to obtain secondary to aphasia. PHYSICAL EXAMINATION: VITAL SIGNS: Temperature 98.1, pulse is 98, respiratory rate 22, blood pressure is 135/97. He is 100% on room air. GENERAL: This is a well-developed, well-nourished male, no acute distress. HEENT: Normocephalic, atraumatic. Pupils are equal and reactive to light. NECK: Supple. CV: Regular rate and rhythm. LUNGS: Clear. ABDOMEN: Soft. EXTREMITIES: He has 2+ edema in his right upper and lower extremity. SKIN: No rash. HEMATOLOGIC: No petechiae or purpura. NEUROLOGICAL: Right-sided facial droop with right hemiparesis and expressive aphasia. ASSESSMENT: 1. History of cerebrovascular accident. 2. Recently diagnosed partial seizures. 3. Leptomeningeal lesions, unknown etiology. DISCUSSION: Neurosurgery has seen the patient and ordered a lumbar puncture for further diagnosis. If nondiagnostic, he may need a biopsy of one of these lesions in the future. Regardless, he has fairly significant deficits from his stroke. He has also had rapid cognitive decline in the last several weeks. Would expect this to continue. 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 Case will be discussed with Dr. Isaac. Thank you for the consult. We will follow back once the diagnosis has been made. Job ID: [id number] [facility]
[2019-10-18 04:50] LABS: Anion Gap 13 mmol/L (10-20); BUN (Urea Nitrogen) 18 mg/dL (8.4-25.7); Calc. Creatinine Clearance 123 mL/min (70-130); Calcium 9.1 mg/dL (7.8-10.44); Carbon Dioxide 21 mmol/L (23-31); Chloride 104 mmol/L (98-107); Estimated GFR-MDRD 90; Glucose 98 mg/dL (80-115); Potassium 3.7 mmol/L (3.5-5.1); Sodium 134 mmol/L (136-145)
[2019-10-18] MEDS: Sodium Chloride 0.9% 1,000 ML IV SCH (05:22)
[2019-10-18] MEDS: Famotidine/PF 20 mg/2ml Vial SLOW IVP SCH ×2 (09:03→21:51)
--- NOTE | 2019-10-18 10:09 | PRG ---
DATE OF SERVICE: 10/18/2019 Mr. Arredondo remains with some form of leptomeningeal carcinomatosis or angio lymphoma to this carcinomatosis and something that is causing diffusion restriction, essentially stroke-like symptoms in the left posterior limb of the internal capsule that has rendered him hemiplegic. He is on levetiracetam. His level is within normal limits and he has had a long history of seizure. We have done a lumbar puncture, which demonstrates elevated lymphocytes, slightly elevated protein. We will follow up on the cytology. We may need an MRI of the brain without and with contrast on Monday if something needs to be biopsied in regard to determine what is going on. Job ID: [id number]
--- NOTE | 2019-10-18 10:49 | PRG ---
DATE OF SERVICE: 10/18/2019 INTERVAL HISTORY: The patient is doing fine from respiratory standpoint. He remains on room air. There has been no interval change to his condition. He has no complaints of fevers, chills, nausea or vomiting. There are no overnight events. PHYSICAL EXAMINATION: VITAL SIGNS: Afebrile, pulse 99, blood pressure 121/80, respirations 26, and saturation 96% on room air. GENERAL: The patient is awake and alert, in no apparent distress. LUNGS: Good air entry bilaterally. There is no prolonged expiratory phase or wheezing present. HEART: Normal rate, regular. ABDOMEN: Soft, nontender, and nondistended. Bowel sounds are positive. MUSCULOSKELETAL: No cyanosis or clubbing. There is no pitting in the bilateral lower extremities. LABORATORY DATA: Sodium 134. Basic metabolic profile is otherwise unremarkable/stable. CSF total protein is elevated, but the glucose is normal. White blood cells 22, lymphocytes are 90. Cytology is currently pending. Cryptococcal antigen is negative. CSF culture is negative to date. Cytology is currently pending. ASSESSMENT: 1. Acute cerebrovascular accident of the left middle cerebral artery distribution. 2. Brain mass with leptomeningeal enhancement. 3. History of alcohol abuse. 4. Aortic stenosis, severe. DISCUSSION AND PLAN: The patient is doing stable from mentation standpoint. At this point, he remains stable for transition out of the ICU to the stroke unit. He has no further requirements for inpatient Pulmonary or Critical Care opinion, and I will sign off. Please call with additional questions or concerns through time. Job ID: [id number]
--- NOTE | 2019-10-18 12:11 | PRG ---
DATE OF SERVICE: 10/15/2019 SUBJECTIVE: The patient has remained with stroke symptoms. He was admitted to the ICU and placed on telemetry monitoring for ongoing serial neuro checks. Neurology has been consulted. The patient has history of atrial fibrillation, OBJECTIVE: VITAL SIGNS: Blood pressure is 133/100, heart rate is 92, temperature 98.7, respiratory rate 22, pulse oximetry 100%. HEAD: Normocephalic and atraumatic. NECK: Supple. CHEST: Fair bilateral air entry. HEART: S1 and S2. Regular. ABDOMEN: Soft, nontender. Bowel sounds present. NEUROLOGIC: The patient is awake, alert, oriented, right-sided weakness. PSYCHIATRIC: Unable to assess. EXTREMITIES: No clubbing. No cyanosis. LABORATORY DATA: CBC reviewed. Hemoglobin 15.4. Potassium 4.5. CURRENT MEDICATIONS: Reviewed. ALLERGIES: REVIEWED. REVIEW OF SYSTEMS: Review of 14 systems negative, except what is mentioned in the history of present illness. ASSESSMENT AND PLAN: 1. Acute stroke with, neuro checks and telemetry monitoring. Neurology and Neurosurgery have been consulted. 2. History of paroxysmal atrial fibrillation. 3. History of recent seizures on antiseizure med.. 5. Deep venous thrombosis prophylaxis as appropriate with SCDs. 6. Code status: Full code. Job ID: [id number] MTDD
--- NOTE | 2019-10-18 12:50 | PDOC.EVN ---
Event Note - Event Note Event Note: [id number] progress
--- NOTE | 2019-10-18 13:12 | PRG ---
DATE OF SERVICE: 10/18/2019 SUBJECTIVE: The patient is sitting up in bed, still having aphasia and slurring of speech. Lumbar puncture was done yesterday. Initial results, there were a total of 22 wbc's, maybe lymphocytes, protein is 69. Still awaiting cytology results. No new complaints. OBJECTIVE: GENERAL: Aphasic, slurring of speech. VITAL SIGNS: Blood pressure 146/90, pulse is 92, respiratory rate is 14, and temperature 98.9. HEAD AND NECK: Normocephalic, atraumatic. Neck is supple. CHEST: Fair bilateral air entry. HEART: S1, S2. Regular. ABDOMEN: Soft, nontender. Bowel sounds present. NEUROLOGIC: The patient is awake, alert, with right facial droop, right-sided weakness, expressive aphasia, slurred speech. PSYCH: Unable to assess. EXTREMITIES: No clubbing, no cyanosis. LABORATORY DATA: CSF; WBCs 22, protein 69, cytology still pending. ASSESSMENT: 1. Acute cerebrovascular accident. 2. Brain/leptomeningeal metastasis ? 3. Paroxysmal atrial fibrillation. 4. History of seizures. 5. History of cerebrovascular accident. PLAN: 1. Continue with the close neuro checks. 2. Follow rest of CSF results, cytology results, appreciate Neurology, Neurosurgery input, appreciate Oncology input. 3. Continue with antiseizure medication. 4. DVT prophylaxis as appropriate. 5. PT and OT eval and treat. Job ID: [id number]
[2019-10-19] MEDS: Sodium Chloride 0.9% 1,000 ML IV SCH ×2 (06:11→21:33)
--- NOTE | 2019-10-19 09:42 | PRG ---
DATE OF SERVICE: 10/19/2019 I saw Mr. Arredondo in his room on the Stroke Unit this morning. He was resting comfortably as I entered the room. He did not have any complaints for me overnight. He wonders what the status is of his CSF testing. Overnight, I see 99.2 is the highest temperature recorded. His blood pressures have ranged between 100 and 130s. On physical examination, Mr. Arredondo has some dysarthria. Occasionally, he will make a paraphasic error. Most of his speech disturbances was dysarthria from weakness. He has a dense right hemiparesis/hemiplegia. Sodium level yesterday was 134. He does not have a CBC currently. Microscopic evaluation of the cells in the CSF was inconclusive for malignancy. Flow cytometry is pending. There are no obvious malignant cells under the microscope, but perhaps surface markers on flow cytometry might be different. Mr. Arredondo has had posterior internal capsule stroke on the left side, giving him a dense right hemiparesis/hemiplegia. In addition, however, he has multiple areas within the cerebellum and cortices of enhancement which is patchy and it looks associated with peel surfaces. There was somewhat surrounding T2 signal change abutting these areas. The etiology of these is unclear. The differential is broad and could include vasculitis, lymphoma, infectious process. I do not plan any further intervention over the weekend. Dr. Coronado has stopped the steroids in case brain biopsy needs to be completed. If this was lymphoma, then that brain biopsy might prove nondiagnostic if continuous steroid use is maintained. I am going to follow up with the patient tomorrow, but I doubt that the flow cytometry will be done by then. (15 minutes). Job ID: [id number] MTDD
[2019-10-19] MEDS ORDERED: Senokot S 8.6-50 MG TAB PO PRN (09:50)
[2019-10-19] MEDS ORDERED: Ondansetron PF 4 MG/2 ML Vial IVP PRN (09:50)
[2019-10-19] MEDS ORDERED: Loperamide HCl 2 MG CAP PO PRN (09:50)
[2019-10-19] MEDS ORDERED: Artificial Tears 18 DROP/0.9 ML EA EYE PRN (09:50)
[2019-10-19] MEDS ORDERED: Diabetic Tussin 200 MG/10 ML UDCUP PO PRN (09:50)
[2019-10-19] MEDS ORDERED: Calcium Carbonate 500 MG ChewTAB PO PRN (09:50)
[2019-10-19] MEDS ORDERED: Sodium Chloride 0.65% Nasal 44 ML BOT EA NARE PRN (09:50)
[2019-10-19] MEDS ORDERED: Bisacodyl 10 MG SUPP PR PRN (09:50)
[2019-10-19] MEDS ORDERED: Ondansetron ODT 4 MG TAB PO PRN (09:50)
[2019-10-19] MEDS ORDERED: Loratadine 10 MG TAB PO PRN (09:50)
--- NOTE | 2019-10-19 09:51 | PDOC.HOSPP ---
- Subjective Encounter Date: 10/19/19 Encounter Time: 07:20 Subjective: Patient seen and examined. No new complaints. No overnight events - Objective Vital Signs & Weight: Vital Signs (12 hours) Temp Pulse Resp BP BP Pulse Ox 10/19/19 07:20 97.6 F 91 12 137/88 98 10/19/19 04:43 99.2 F 88 16 130/88 96 10/18/19 23:59 98.3 F 90 16 140/86 95 Weight Admit Weight 218 lb Weight 218 lb 0.595 oz Most Recent Monitor Data Heart Rate from ECG 85 NIBP 102/66 NIBP BP-Mean 78 Respiration from ECG 18 SpO2 96 I&O: 10/18/19 10/19/19 10/20/19 06:59 06:59 06:59 Intake Total 1300 200 Output Total 5 177 Balance 1295 23 Result Diagrams: 10/14/19 09:43 10/18/19 03:45 Radiology Reviewed by me: Yes EKG Reviewed by me: Yes Hospitalist ROS - Review of Systems ENT: denies: ear pain, ear discharge, nose pain, nose discharge, nose congestion , mouth pain, mouth swelling, throat pain, throat swelling, other Respiratory: denies: cough, dry, shortness of breath, hemoptysis, SOB with excertion, pleuritic pain, sputum, wheezing, other Cardiovascular: denies: chest pain, palpitations, orthopnea, paroxysmal noc. dyspnea, edema, light headedness, other Gastrointestinal: denies: nausea, vomiting, abdominal pain, diarrhea, constipation, melena, hematochezia, other Genitourinary: denies: dysuria, frequency, incontinence, hematuria, retention, other Musculoskeletal: denies: neck pain, shoulder pain, arm pain, back pain, hand pain, leg pain, foot pain, other Skin: denies: rash, lesions, justice, bruising, other Neurological: reports: weakness, change in speech. denies: numbness, incoordination, confusion, seizures, other - Medication Medications: Active Medications Generic Name Dose Route Start Last Admin Trade Name Freq PRN Reason Stop Dose Admin Famotidine 20 mg 10/17/19 21:00 10/18/19 21:51 Pepcid SLOW IVP 20 mg BID KYLE Administration Hydralazine HCl 10 mg 10/14/19 17:47 10/16/19 20:18 Apresoline SLOW IVP 10 mg Q15MIN PRN Administration SBP >140 Sodium Chloride 1,000 mls @ 50 mls/hr 10/17/19 06:45 10/19/19 06:11 Normal Saline 0.9% IV 1,000 mls .Q20H KYLE Administration Fosphenytoin Sodium 300 mg/ 56 mls @ 112 mls/hr 10/17/19 21:00 10/18/19 21:51 Sodium Chloride IVPB 56 mls HS KYLE Administration Labetalol HCl 10 mg 10/14/19 17:46 10/16/19 10:20 Normodyne SLOW IVP 10 mg Q15MIN PRN Administration Sbp Greater Than 140 - Exam General Appearance: NAD, awake alert Eye: PERRL, anicteric sclera ENT: normocephalic atraumatic, no oropharyngeal lesions Neck: supple, symmetric, no JVD Heart: RRR, no murmur, no gallops Respiratory: CTAB, no wheezes, no rales, no ronchi Gastrointestinal: soft, non-tender, non-distended, normal bowel sounds Extremities: no edema Skin: normal turgor, no lesions Neurological: facial droop, hemiplegia, speech deficit Neurological - other findings: dysarthria, right hemiplegia Musculoskeletal: normal tone, normal strength Psychiatric: normal affect, normal behavior Hosp A/P (1) Acute CVA (cerebrovascular accident) Code(s): I63.9 - CEREBRAL INFARCTION, UNSPECIFIED Status: Acute (2) 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 Code(s): R90.89 - [facility] ABNORMAL FINDINGS ON DIAGNOSTIC IMAGING OF CNSL Status: Acute (3) Obesity (BMI 30.0-34.9) Code(s): E66.9 - OBESITY, UNSPECIFIED Status: Chronic (4) PAF (paroxysmal atrial fibrillation) Code(s): I48.0 - PAROXYSMAL ATRIAL FIBRILLATION Status: Chronic - Plan old records reviewed/req, PT/OT, social worker clinical at this point pt is not on aspirin or any anticoagulant therapy as pt has underlying brain lesion and he may need brain biopsy, so he is off steroid as well, medication reviewed and continue to provide symptomatic treatment and supportive care, will need rehab eventually, neurosurgery following, csf is unremarkable, devin cytometry pending, ID consulted, neuro consulted
[2019-10-19] MEDS: Famotidine/PF 20 mg/2ml Vial SLOW IVP SCH ×2 (10:33→21:34)
[2019-10-19 16:58] LABS: HIV (1/2) Antibody/Antigen Non-Reactive (NonReactive); HIV 1/2 INDEX 0.12 S/CO (<1.00); Syphilis Antibody Nonreactive (Nonreactive); Syphilis Antibody Index 0.04 S/CO (<1.00 Non-Reactive)
--- NOTE | 2019-10-19 22:33 | CON ---
DATE OF CONSULTATION: 10/19/2019 REASON FOR CONSULTATION: Evaluate CVA with abnormalities in cerebrospinal fluid exam. HISTORY OF PRESENT ILLNESS: A 64-year-old, who has a history of alcoholism, in remission for the past 20 years. Previous areas of CVA, diagnosed at [place] in March 2019. At that time, he was discharged from [facility] on Xarelto. He was seen at the emergency room at [facility] on June 06, with weakness and dizziness. His BP then was 130/88, respirations 16, and temperature 98.2. Other findings included right-sided hemiparesis and right facial paresis. No comment was made on the speech ability. No other abnormalities noted on exam. He has no other additional findings with a sodium 137, creatinine 1.12, glucose 124 with a normal liver profile. Albumin 4.1. White cell count of 6.9, hemoglobin 15, platelets 211 with 60% neutrophils. Consultations were obtained with Dr. Nicole. He underwent a CT perfusion study, which showed no evidence of infarct and there was a little bit of hemorrhage noted, so intervention with tPA was not given. The patient had a brain MRI done on October 15, and this demonstrated moderate-sized acute infarction in left corpus striatum. There is a hyperdense lesion in the left qwghpiqj-sotlieuo-jqcakkrax junction, strongly enhancing leptomeningeal lesion, which could represent leptomeningeal metastases and numerous small foci of leptomeningeal enhancement with adjacent vasogenic edema in the bilateral cerebellar folia. There is a region in the right parietal area with the same differential diagnosis. There is a nonocclusive thrombus of the M1 segment of the left middle cerebral artery. There is a small focal right cerebellar acute infarction as well. Additionally, in the left temporal pole, there was a 2 x 3 x 1.5 cm lesion, which was felt to represent an infarction that occurred sometime between May and September 2019. The numerous tiny subcentimeter foci of leptomeningeal enhancement throughout the bilateral cerebellar folia were felt to be consistent with associated microhemorrhages with small foci of edema. The patient had a CT of abdomen and pelvis because of concern with carcinomatosis in the chest as well, and there are no abnormalities of significance noted. Currently, Mr. Arredondo is awake. His is in the room. He is markedly dysarthric with speech impairment. He seems to suffer from an expressive aphasia. He has a dense right hemiparesis. He denies headaches. No respiratory symptoms or abdominal pain. No genitourinary symptoms. He is voiding in the diaper. PAST MEDICAL HISTORY: Includes prior CVA, which led to admission at [facility]. MRI then demonstrated R frontal parietal, left insular cortex and R cerebellar subacute ischemic changes. He was discharged on Xarelto and Aspirin although according to his , Aspirin was not given. The patient has a history of paroxismal atrial fibrillation few years ago, but according to , that problem did not recur after the [facility] admission. Hypertension and has a pill for seizure-like activity, Keppra. PAST SURGICAL HISTORY: Negative. SOCIAL HISTORY: Former alcoholism, in remission for 20 years. No smoking. 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 . ALLERGIES: NONE. FAMILY HISTORY: Hemorrhagic CVA. CURRENT MEDICATIONS: 1. Tylenol. 2. Dulcolax. 3. Tums. 4. Pepcid. 5. Fosphenytoin. 6. Robitussin. 7. Apresoline. 8. Normodyne. 9. Imodium. 10. Claritin. 11. Zofran. 12. Senokot. PHYSICAL EXAMINATION: VITAL SIGNS: He has been afebrile. BP 120/80, pulse 88, respirations 19, and O2 saturation 100%. SKIN: Without any abnormalities noted. The patient has a peripheral IV access and is voiding in the diaper. LYMPH: No lymphadenopathy. HEENT: Ocular movements conjugate. Pupils are equal and reactive. Conjunctivae normal. Oral cavity with no significant abnormalities. NECK: Supple. No jugular vein distention. LUNGS: Symmetric. Clear breath sounds. HEART: S1 and S2, regular rate. No S3 or S4. ABDOMEN: Soft, not distended or tender. No ascites. : No bladder distention. MUSCULOSKELETAL: No joint inflammatory activity. NEUROLOGIC: The patient has a dense right hemiparesis. Plantar responses are indifferent on the right side and flexor on the left. No clonus noted. He is awake. He has quite pronounced expressive aphasia. EXTREMITIES: Pulses 1+ in dorsalis pedis. No edema. No joint inflammatory activity. LABORATORY DATA: CSF exam showed 22 wbc's with predominance of lymphocytes, glucose was 60, and total protein 69. White cell count 6.9, hemoglobin 15, platelets 211 with 60% neutrophils. Phenytoin 13. Liver profile normal. Albumin 4.1. Cryptococcus antigen in CSF was negative. Pending labs include fungus antibody panel, culture of fungi, myelin basic protein, cell block, VDRL, West Nile, Idanha spotted fever, and HAROLDO screen. CARDIOVASCULAR STUDIES: Echocardiogram showed EF 65%, somewhat thickened aortic valve leaflets, severe aortic stenosis, trace tricuspid regurgitation. No evidence of PFO or ASD. ASSESSMENT: History of alcoholism, in remission. History of paroxysmal atrial fibrillation. Recurrent cerebrovascular accidents in the anterior and posterior cerebral circulation distribution, R and L side. Abnormalities noted on MRI with some leptomeningeal enhancement. Most of those were interpreted as representing microhemorrhages and findings in the CSF evaluation with mild lymphocytic pleocytosis and mild elevation in the CSF protein. DISCUSSION: The clinical radiological manifestations are consistent with recurrent multifocal areas of ischemia, some of them having evolved into small infarcts and some with hemorrhagic transformation. The widespread areas of involvement is a quite striking feature of this case, and it is hard to explain this widespread manifestation in a patient with only paroxismal afib hx and on anticoagulant. This brings up the possibility of an underlying vascular disorder intrinsic to the patients brain rather than embolic phenomena. A vasculitis could explain this finding, either primary CURRICULUM AND INSTRUCTION DIRECTOR vasculitis or secondary, for example due to an infection. CURRICULUM AND INSTRUCTION DIRECTOR vasculitides can be associated with various infectious agents, from parasitic (Toxocara, Schistosoma, Trichinella), Fungal (Cryptococcus, Aspergillus, Mucor), Viral (HIV, CMV, VZV, HSV, Parvovirus) CSF abnormalities such as the ones present in the patient's CSF have been described in post CVA situations as well as following seizure activity with [id number]-[id number] elevations in lymphocytes and neutrophils and mild elevation of protein. The absence of decrease in CSF glucose and the mild elevation in protein would strongly argue against fungal or mycobacterial infection. CURRICULUM AND INSTRUCTION DIRECTOR viral infections are usually not associated with recurrent CVAs and the vasculitis is more localized and associated with findings suggestive of cortical inflammatory activity which is not present in this case. Syphilis can be associated with recurrent CVAs but usually much more localized. Borrelia and other intracellular bacterial infections would be unlikely to be associated with the patient's clinical and radiological presentation. Lymphoma with vascular involvement of the CURRICULUM AND INSTRUCTION DIRECTOR can present with the findings described, and the cytology is pending. Flow cytometry, I guess would be an additional test that might be helpful in this situation. We will add HIV for completeness sake and serum syphilis serology. It is possible that the hx of afib might have served as a red-bernal and deviated the attention from the true nature of the process. Quite unusual case. Job ID: [id number] MTDD
[2019-10-19] MEDS ORDERED: diphenhydrAMINE 50 MG/ML VIAL IVP SCH (23:59)
[2019-10-20] MEDS: Famotidine/PF 20 mg/2ml Vial SLOW IVP SCH ×2 (09:20→21:00)
[2019-10-20] MEDS: Acetaminophen 500 MG TAB PO PRN (09:20)
[2019-10-20 09:57] LABS: Troponin I Less than 0.010 ng/mL (< 0.028)
--- NOTE | 2019-10-20 10:48 | PRG ---
DATE OF SERVICE: 10/20/2019 I saw Mr. Arredondo on rounds today. He remains in his hospital room. He has a rather dense right hemiparesis and dysarthria from stroke in the posterior limb of his internal capsule on the left side. He continues to do therapy as an inpatient. Overnight, the highest temperature I see recorded among his electronic vital signs is 98.8 degrees Fahrenheit. Blood pressures have ranged between 120s and 150s. An Infectious Disease consult was obtained yesterday and I appreciate the guidance. A number of unusual organisms can cause vasculitis. I am wondering if any septic emboli could have caused both the stroke and small peel-based lesions scattered in different parts of the brain. A lymphoma or intravascular lymphoma could be causing this picture as well. There has been no change in neurological examination overnight. We are awaiting final reports from flow cytometry. We will continue to monitor Mr. Arredondo. Pending laboratory evaluations will be followed up tomorrow. We will continue to ask Physical Therapy to help in inpatient rehabilitation is likely destination once we have secured diagnosis. So far that has remained elusory in this unusual case. (15 min) Job ID: [id number] MTDD
[2019-10-20] MEDS: Sodium Chloride 0.9% 1,000 ML IV SCH (11:17)
--- NOTE | 2019-10-20 11:26 | PDOC.HOSPP ---
- Subjective Encounter Date: 10/20/19 Encounter Time: 07:45 Subjective: Patient seen and examined. No overnight events today he was having epigastric pain, his EKG is unremarkable - Objective Vital Signs & Weight: Vital Signs (12 hours) Temp Pulse Resp BP BP Pulse Ox 10/20/19 09:40 134/83 10/20/19 07:35 98.3 F 91 16 146/84 H 98 10/20/19 05:31 123/88 10/20/19 04:00 98.5 F 85 16 145/95 H 96 10/20/19 00:00 98.8 F 98 16 125/90 95 Weight Admit Weight 218 lb Weight 218 lb 0.595 oz Most Recent Monitor Data Heart Rate from ECG 85 NIBP 102/66 NIBP BP-Mean 78 Respiration from ECG 18 SpO2 96 I&O: 10/19/19 10/20/19 10/21/19 06:59 06:59 06:59 Intake Total 200 876 120 Output Total 177 325 325 Balance 23 551 -205 Result Diagrams: 10/14/19 09:43 10/18/19 03:45 EKG Reviewed by me: Yes (nsr,) Hospitalist ROS - Review of Systems ENT: denies: ear pain, ear discharge, nose pain, nose discharge, nose congestion , mouth pain, mouth swelling, throat pain, throat swelling, other Respiratory: denies: cough, dry, shortness of breath, hemoptysis, SOB with excertion, pleuritic pain, sputum, wheezing, other Cardiovascular: denies: chest pain, palpitations, orthopnea, paroxysmal noc. dyspnea, edema, light headedness, other Gastrointestinal: reports: abdominal pain. denies: nausea, vomiting, diarrhea, constipation, melena, hematochezia, other Genitourinary: denies: dysuria, frequency, incontinence, hematuria, retention, other Musculoskeletal: denies: neck pain, shoulder pain, arm pain, back pain, hand pain, leg pain, foot pain, other - Medication Medications: Active Medications Generic Name Dose Route Start Last Admin Trade Name Freq PRN Reason Stop Dose Admin Acetaminophen 500 mg 10/19/19 09:50 10/20/19 09:20 Tylenol PO 500 mg Q6H PRN Administration Mild Pain (1-3) Calcium Carbonate 1,000 mg 10/19/19 09:50 10/20/19 09:19 Tums PO 1,000 mg Q4H PRN Administration Heartburn or Indigestion Famotidine 20 mg 10/17/19 21:00 10/20/19 09:20 Pepcid SLOW IVP 20 mg BID KYLE Administration Hydralazine HCl 10 mg 10/14/19 17:47 10/16/19 20:18 Apresoline SLOW IVP 10 mg Q15MIN PRN Administration SBP >140 Sodium Chloride 1,000 mls @ 50 mls/hr 10/17/19 06:45 10/20/19 11:17 Normal Saline 0.9% IV 1,000 mls .Q20H KYLE Administration Fosphenytoin Sodium 300 mg/ 56 mls @ 112 mls/hr 10/17/19 21:00 10/19/19 21:34 Sodium Chloride IVPB 56 mls HS KYLE Administration Labetalol HCl 10 mg 10/14/19 17:46 10/16/19 10:20 Normodyne SLOW IVP 10 mg Q15MIN PRN Administration Sbp Greater Than 140 - Exam General Appearance: NAD, awake alert Eye: PERRL, anicteric sclera ENT: normocephalic atraumatic, no oropharyngeal lesions Neck: supple, symmetric, no JVD Heart: no murmur, no gallops, irregular Respiratory: CTAB, no wheezes, no rales Gastrointestinal: soft, non-tender, non-distended, normal bowel sounds Extremities: no edema Skin: normal turgor, no lesions Neurological: hemiplegia Musculoskeletal: normal tone, normal strength Psychiatric: normal affect, normal behavior Hosp A/P (1) Acute CVA (cerebrovascular accident) Code(s): I63.9 - CEREBRAL INFARCTION, UNSPECIFIED Status: Acute (2) 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 Code(s): R90.89 - [facility] ABNORMAL FINDINGS ON DIAGNOSTIC IMAGING OF CNSL Status: Acute (3) Obesity (BMI 30.0-34.9) Code(s): E66.9 - OBESITY, UNSPECIFIED Status: Chronic (4) PAF (paroxysmal atrial fibrillation) Code(s): I48.0 - PAROXYSMAL ATRIAL FIBRILLATION Status: Chronic - Plan old records reviewed/req at this point pt is not on aspirin or any anticoagulant therapy as pt has underlying brain lesion and he may need brain biopsy, so he is off steroid as well, medication reviewed and continue to provide symptomatic treatment and supportive care, will need rehab eventually, neurosurgery following, csf is unremarkable, devin cytometry pending, ID consulted, neuro consulted 10/20/19, at this time main diagnosis is not certain, ID recomendation apreciated , flow cytometry pending, will repeat labs tomorrow, will do serical cardiac enzyme x2 to rule out acs.
[2019-10-20 14:03] LABS: Troponin I 0.018 ng/mL (< 0.028)
[2019-10-21] MEDS: Labetalol HCl 100 MG/20 ML VIAL SLOW IVP PRN ×3 (00:37→04:40)
[2019-10-21 04:29] LABS: #Basophils 0.1 thou/uL (0.0-0.2); #Eosinphils 0.3 thou/uL (0.0-0.7); #Lymphocytes 1.7 thou/uL (1.20-3.40); #Neutrophils 4.9 thou/uL (1.40-6.50); %Basophils 0.8 % (0.0-1.0); %Lymphocytes 21.6 % (21.0-51.0); %Monocytes 12.9 % (0.0-10.0); %Neutrophils 60.8 % (42.0-75.0); Hemoglobin 14.9 g/dL (14.0-18.0); Mean Corpuscular HGB CONC 34.5 g/dL (32.0-36.0); Mean Corpuscular Hemoglobin 31.2 pg (27.0-31.0); Mean Corpuscular Volume 90.4 fL (78.0-98.0); Mean Platelet Volume 7.8 fL (7.4-10.4); Platelet Count 246 thou/uL (130-400); RBC Distribution Width 12.4 % (11.5-14.5); Red Blood Cell (RBC) Count 4.79 mill/uL (4.70-6.10)
[2019-10-21 04:56] LABS: ALT (SGPT) 18 U/L (8-55); AST (SGOT) 18 U/L (5-34); Albumin 3.9 g/dL (3.4-4.8); Alkaline Phosphatase 70 U/L (40-110); Anion Gap 14 mmol/L (10-20); BUN (Urea Nitrogen) 14 mg/dL (8.4-25.7); Bilirubin, Total 0.5 mg/dL (0.2-1.2); CRP (Inflammatory) 1.86 mg/dL (= or < 0.5); Calc. Creatinine Clearance 126 mL/min (70-130); Calcium 9.1 mg/dL (7.8-10.44); Carbon Dioxide 22 mmol/L (23-31); Chloride 106 mmol/L (98-107); Estimated GFR-MDRD Greater than 90; Globulin 2.3 g/dL (2.4-3.5); Glucose 107 mg/dL (80-115); Potassium 3.7 mmol/L (3.5-5.1); Protein, Total 6.2 g/dL (5.8-8.1); Sodium 138 mmol/L (136-145)
[2019-10-21] MEDS: Famotidine/PF 20 mg/2ml Vial SLOW IVP SCH ×2 (09:00→22:20)
[2019-10-21] MEDS: Sodium Chloride 0.9% 1,000 ML IV SCH (09:00)
--- NOTE | 2019-10-21 09:48 | PDOC.HOSPP ---
- Subjective Encounter Date: 10/21/19 Encounter Time: 07:20 Subjective: Patient seen and examined. No new complaints. No overnight events - Objective Vital Signs & Weight: Vital Signs (12 hours) Temp Pulse Resp BP BP BP Pulse Ox 10/21/19 07:20 98.0 F 76 17 148/95 H 97 10/21/19 04:40 83 155/98 H 10/21/19 04:37 98.3 F 18 155/98 H 96 10/21/19 03:23 130/88 10/21/19 02:18 83 144/97 H 10/21/19 02:12 144/97 H 10/21/19 00:37 96 151/98 H 10/21/19 00:34 97.8 F 101 H 18 151/98 H 96 Weight Admit Weight 218 lb Weight 218 lb 0.595 oz Most Recent Monitor Data Heart Rate from ECG 85 NIBP 102/66 NIBP BP-Mean 78 Respiration from ECG 18 SpO2 96 I&O: 10/20/19 10/21/19 10/22/19 06:59 06:59 06:59 Intake Total 876 871 Output Total 325 650 Balance 551 221 Result Diagrams: 10/21/19 04:16 10/21/19 04:16 EKG Reviewed by me: Yes Hospitalist ROS - Review of Systems ENT: denies: ear pain, ear discharge, nose pain, nose discharge, nose congestion , mouth pain, mouth swelling, throat pain, throat swelling, other Respiratory: denies: cough, dry, shortness of breath, hemoptysis, SOB with excertion, pleuritic pain, sputum, wheezing, other Cardiovascular: denies: chest pain, palpitations, orthopnea, paroxysmal noc. dyspnea, edema, light headedness, other Gastrointestinal: denies: nausea, vomiting, abdominal pain, diarrhea, constipation, melena, hematochezia, other Genitourinary: denies: dysuria, frequency, incontinence, hematuria, retention, other Musculoskeletal: denies: neck pain, shoulder pain, arm pain, back pain, hand pain, leg pain, foot pain, other Skin: denies: rash, lesions, justice, bruising, other Neurological: reports: weakness, change in speech. denies: numbness, incoordination, confusion, seizures, other - Medication Medications: Active Medications Generic Name Dose Route Start Last Admin Trade Name Keatonq PRN Reason Stop Dose Admin Acetaminophen 500 mg 10/19/19 09:50 10/20/19 09:20 Tylenol PO 500 mg Q6H PRN Administration Mild Pain (1-3) Calcium Carbonate 1,000 mg 10/19/19 09:50 10/20/19 09:19 Tums PO 1,000 mg Q4H PRN Administration Heartburn or Indigestion Famotidine 20 mg 10/17/19 21:00 10/21/19 09:00 Pepcid SLOW IVP 20 mg BID KYLE Administration Hydralazine HCl 10 mg 10/14/19 17:47 10/16/19 20:18 Apresoline SLOW IVP 10 mg Q15MIN PRN Administration SBP >140 Sodium Chloride 1,000 mls @ 50 mls/hr 10/17/19 06:45 10/21/19 09:00 Normal Saline 0.9% IV 1,000 mls .Q20H KYLE Administration Fosphenytoin Sodium 300 mg/ 56 mls @ 112 mls/hr 10/17/19 21:00 10/20/19 21:00 Sodium Chloride IVPB 56 mls HS KYLE Administration Labetalol HCl 10 mg 10/14/19 17:46 10/21/19 04:40 Normodyne SLOW IVP 10 mg Q15MIN PRN Administration Sbp Greater Than 140 - Exam General Appearance: NAD, awake alert Eye: PERRL, anicteric sclera ENT: normocephalic atraumatic, no oropharyngeal lesions Neck: supple, symmetric, no JVD, no thyromegaly Heart: no murmur, no gallops Respiratory: CTAB, no wheezes, no rales, no ronchi Gastrointestinal: soft, non-tender, non-distended, normal bowel sounds Extremities: no cyanosis, no clubbing, no edema Skin: normal turgor, no lesions Neurological: facial droop, hemiplegia, speech deficit Musculoskeletal: normal tone, normal strength Psychiatric: normal affect, normal behavior Hosp A/P (1) Acute CVA (cerebrovascular accident) Code(s): I63.9 - CEREBRAL INFARCTION, UNSPECIFIED Status: Acute (2) 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 Code(s): R90.89 - [facility] ABNORMAL FINDINGS ON DIAGNOSTIC IMAGING OF CNSL Status: Acute (3) Obesity (BMI 30.0-34.9) Code(s): E66.9 - OBESITY, UNSPECIFIED Status: Chronic (4) PAF (paroxysmal atrial fibrillation) Code(s): I48.0 - PAROXYSMAL ATRIAL FIBRILLATION Status: Chronic - Plan old records reviewed/req, PT/OT, social group worker, speech therapy at this point pt is not on aspirin or any anticoagulant therapy as pt has underlying brain lesion and he may need brain biopsy, so he is off steroid as well, medication reviewed and continue to provide symptomatic treatment and supportive care, will need rehab eventually, neurosurgery following, csf is unremarkable, devin cytometry pending, ID consulted, neuro consulted 10/20/19, at this time main diagnosis is not certain, ID recomendation apreciated , flow cytometry pending, will repeat labs tomorrow, will do serical cardiac enzyme x2 to rule out acs. 10/21/19, neurosurgery to decide about any need for biopsy or not, flow cytometry pending, he will need rehab placement on discharge, medication reviewed
[2019-10-21 12:08] LABS: West Nile Virus IgG Ab - CSF Negative (Negative); West Nile Virus IgM Ab - CSF Negative (Negative)
--- NOTE | 2019-10-21 13:34 | PRG ---
DATE OF SERVICE: 10/21/2019 Mr. Arredondo remains stable from when I last saw him last week. His dense right- sided hemiparesis and dysarthria from stroke in the posterior limb of his internal capsule on the left remain unchanged. His systolic blood pressure has ranged from the 140s -170s and diastolic averaging in the 90s-100s. Thus far, CSF cytology has revealed polymorphous population of lymphocytes, but negative for carcinoma. The flow cytometry remains pending. Infectious Disease was consulted over the weekend. There is consideration that the widespread area of involvement is suggestive of underlining vasculitis of the brain rather than an embolic phenomenon. Dr. Rodriguez suggests possible LEARNING SUPPORT SPECIALIST lymphoma. Flow cytometry will be helpful in further elucidating the diagnosis. We will continue to await the flow cytometry results before moving forward with any other diagnostic studies. The patient was updated with this plan and has no further questions or complaints at this time. This is a 15-minute subsequent visit note in which greater than 50% of the time was spent in review of records, evaluation of the patient, examination, and formulation of a plan. The remaining time was spent in counseling and coordination of care. Job ID: [id number] MTDD
--- NOTE | 2019-10-21 16:14 | PRG ---
DATE OF SERVICE: 10/21/2019 SERVICE: Pulmonary Medicine. INTERVAL HISTORY: The patient is doing fine from respiratory standpoint. He denies any current chest discomfort, nausea or vomiting. He will be going down for an MRI later today. Otherwise, he is currently in his usual state of health. PHYSICAL EXAMINATION: VITAL SIGNS: Afebrile, pulse 84, blood pressure 129/92, respirations 22, and saturation 98% on room air. GENERAL: The patient is awake and alert, in no apparent distress. LUNGS: Good air entry bilaterally. No rhonchi, crackles or wheezing appreciated. HEART: Normal rate, regular. ABDOMEN: Soft, nontender, and nondistended. Bowel sounds are positive. MUSCULOSKELETAL: No cyanosis or clubbing. No pitting in the bilateral lower extremities. LABORATORY DATA: WBC 8.0, hemoglobin 14.9, and platelets 246,000. INR 1.2. Basic metabolic profile and liver function studies are unremarkable. Troponin is negative x2. CRP 1.86. Phenytoin 13.2. Cryptococcal antigen, body fluid cultures are negative. ASSESSMENT: 1. Acute cerebrovascular accident of the left middle cerebral artery distribution. 2. Brain mass with leptomeningeal enhancement. 3. History of alcohol abuse. 4. Aortic stenosis, severe. DISCUSSION AND PLAN: The patient is doing fine from respiratory standpoint. I will continue to follow, intermittently during the hospital stay. Should he develop increasing respiratory difficulties, please give me a call sooner. Job ID: [id number]
[2019-10-22] MEDS: Sodium Chloride 0.9% 1,000 ML IV SCH (05:49)
[2019-10-22] MEDS: Famotidine/PF 20 mg/2ml Vial SLOW IVP SCH ×2 (10:27→20:57)
--- NOTE | 2019-10-22 11:15 | PDOC.HOSPP ---
- Subjective Encounter Date: 10/22/19 Encounter Time: 11:05 Subjective: f/u for CVA, leptomeningeal enhancement on imaging with work up in progress to further define the issue. Pt remains with R hemiparesis but able to take po. Planning for EEG today, arteriogram on 10/23/19 and then brain bx on 10/24/19. No new issues noted. - Objective Vital Signs & Weight: Vital Signs (12 hours) Temp Pulse Pulse Pulse Resp BP BP 10/22/19 10:24 10/22/19 09:05 84 89 149/89 H 135/89 10/22/19 07:17 98.1 F 83 15 10/22/19 05:44 80 10/22/19 03:44 98.6 F 90 20 10/21/19 23:51 98.4 F 82 22 H BP BP Pulse Ox 10/22/19 10:24 123/83 10/22/19 09:05 10/22/19 07:17 142/85 H 96 10/22/19 05:44 133/83 10/22/19 03:44 144/94 H 96 10/21/19 23:51 131/83 96 Weight Admit Weight 218 lb Weight 218 lb 0.595 oz Most Recent Monitor Data Heart Rate from ECG 85 NIBP 102/66 NIBP BP-Mean 78 Respiration from ECG 18 SpO2 96 I&O: 10/21/19 10/22/19 10/23/19 06:59 06:59 06:59 Intake Total 871 120 Output Total 650 Balance 221 120 Result Diagrams: 10/21/19 04:16 10/21/19 04:16 Additional Labs: Microbiology 10/17/19 11:45 Spinal Fluid Culture Cryptococcal Antigen - Final 10/16/19 11:45 Spinal Fluid Culture Body Fluid Culture - Preliminary EKG Reviewed by me: Yes (Tele - SR) Hospitalist ROS - Medication Medications: Active Medications Generic Name Dose Route Start Last Admin Trade Name Freq PRN Reason Stop Dose Admin Acetaminophen 500 mg 10/19/19 09:50 10/20/19 09:20 Tylenol PO 500 mg Q6H PRN Administration Mild Pain (1-3) Calcium Carbonate 1,000 mg 10/19/19 09:50 10/20/19 09:19 Tums PO 1,000 mg Q4H PRN Administration Heartburn or Indigestion Famotidine 20 mg 10/17/19 21:00 10/22/19 10:27 Pepcid SLOW IVP 20 mg BID KYLE Administration Hydralazine HCl 10 mg 10/14/19 17:47 10/16/19 20:18 Apresoline SLOW IVP 10 mg Q15MIN PRN Administration SBP >140 Sodium Chloride 1,000 mls @ 50 mls/hr 10/17/19 06:45 10/22/19 05:49 Normal Saline 0.9% IV 1,000 mls .Q20H KYLE Administration Fosphenytoin Sodium 300 mg/ 56 mls @ 112 mls/hr 10/17/19 21:00 10/21/19 22:20 Sodium Chloride IVPB 56 mls HS KYLE Administration Labetalol HCl 10 mg 10/14/19 17:46 10/21/19 04:40 Normodyne SLOW IVP 10 mg Q15MIN PRN Administration Sbp Greater Than 140 - Exam General Appearance: NAD, awake alert Eye: PERRL, anicteric sclera ENT: normocephalic atraumatic, no oropharyngeal lesions Neck: supple, symmetric, no JVD, no thyromegaly Heart: RRR, no gallops, no rubs, normal peripheral pulses, II/IV Respiratory: CTAB, no wheezes, no rales, no ronchi Gastrointestinal: soft, non-tender, non-distended, normal bowel sounds Extremities: no cyanosis, no clubbing, no edema Skin: normal turgor, no lesions Neurological: no new deficit Neurological - other findings: R hemiparesis, dysarthria Musculoskeletal: generalized weakness Psychiatric: normal affect, A&O x 3 Hosp A/P (1) Acute CVA (cerebrovascular accident) Code(s): I63.9 - CEREBRAL INFARCTION, UNSPECIFIED Status: Acute Plan: Continue routine stroke protocol, ASA/NSAIDs and anticoagulation on hold due to ? 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 (CURRENT) USE OF ANTICOAGULANTS Status: Chronic Plan: Hx of PAF on chronic Xarelto now on hold due to #1 (4) HTN (hypertension) Code(s): I10 - ESSENTIAL (PRIMARY) HYPERTENSION Status: Chronic Qualifiers: Hypertension type: essential hypertension Qualified Code(s): I10 - Essential (primary) hypertension (5) Seizure disorder Code(s): G40.909 - EPILEPSY, UNSP, NOT INTRACTABLE, WITHOUT STATUS EPILEPTICUS Status: Chronic Plan: Resume Keppra, EEG planned today - Plan PT/OT, social sciences lecturer, speech therapy, DVT proph w/SCDs Stable currently Continue supportive mgmt and follow general stroke protocol EEG today Plan for CT Brain arteriogram in am Brain bx pending Resume Gabapentin Resume Keppra Hold ASA/NSAIDs/Anticoagulation Flow cytometry pending
[2019-10-22 12:00] LABS: PTT 26.6 SEC (22.9-36.1); Prothrombin Time 13.3 SEC (12.0-14.7)
--- NOTE | 2019-10-22 12:00 | PRG ---
DATE OF SERVICE: 10/22/2019 This is a 35-minute subsequent visit note, in which 35 minutes were spent in reviewing the imaging record, evaluation, and examination of patient, and formulation of plan. Greater than 50% time was spent in counseling. I had a long discussion with Brit, Mr. Arredondo's . He begin to have speech hesitancy or halting of speech in August. However, he has had just changes in personality and memory dysfunction over the last six months. He was put on and this was recently changed to fosphenytoin. My concern in the totality of his case is given that the cytology is negative and the CSF and the flow cytometry is negative that we are either dealing with a HAT PARTS CUTTER MACHINE vasculitis or primary HAT PARTS CUTTER MACHINE angiitis, septic emboli, demyelination, or lymphangiomatosis. We are going to do an EEG today as he is on fosphenytoin. Neurologically, he has remained hemiplegic and at times a bit confused. We were then going to do a formal angiogram tomorrow to evaluate for HAT PARTS CUTTER MACHINE vasculitis. We are also going to do an MRI of the brain without and with contrast, [facility] protocol tomorrow in preparation for if the angiogram is not diagnostic, I have recommended a brain biopsy based on the enhancement morning. Job ID: [id number]
--- NOTE | 2019-10-22 12:19 | ULT ---
US Venous Doppler Bilat History: Immobilization Comparison: None. Findings: Real-time grayscale, color, and spectral analysis bilateral lower extremity venous system w as performed. The common femoral, femoral, proximal portions greater saphenous and deep femoral veins as well as the popliteal and posterior tibial veins were interrogated. Normal flow, augmentation, and compression. Impression: No deep venous thrombosis.
[2019-10-22] MEDS: levETIRAcetam 500 MG TAB PO SCH (20:57)
[2019-10-23] MEDS ORDERED: Heparin 10,000 UNITS/1 ML VIAL ONE (08:56)
[2019-10-23] MEDS ORDERED: Heparin (Artline) 500 ML ONE (08:56)
--- NOTE | 2019-10-23 09:31 | EEG ---
Referring Physician: ROSANA ARAUJO EEG # [id number] TEST TYPE: ROUTINE PORTABLE INPATIENT REPORT: AN EEG USING THE INTERNATIONAL TEN-TWENTY SYSTEM OF ELECTRODE PLACEMENT WAS PERFORMED. The best waking background is a 7 hertz theta frequency. The patient remained awake throughout the study. Photic stimulation was unremarkable. No epileptiform features were seen. IMPRESSION: THIS IS AN ABNORMAL STUDY FOR THE FINDINGS OF MILD DIFFUSE SLOWING. Picking Machine Operator: AKILAH Travel Registered Nurse Icu: [email or web address] [email or web address]
[2019-10-23] MEDS: Sodium Chloride 0.9% 1,000 ML IV SCH (09:50)
[2019-10-23] MEDS: Famotidine/PF 20 mg/2ml Vial SLOW IVP SCH ×2 (09:53→21:56)
[2019-10-23] MEDS: Donepezil HCl 5 MG TAB PO SCH (09:57)
[2019-10-23] MEDS: Lisinopril 5 MG TAB PO SCH (09:58)
[2019-10-23] MEDS: Gabapentin 300 MG CAP PO SCH (09:58)
[2019-10-23] MEDS: Acetaminophen 500 MG TAB PO PRN (09:58)
[2019-10-23] MEDS: levETIRAcetam 500 MG TAB PO SCH ×2 (09:58→21:56)
--- NOTE | 2019-10-23 10:00 | PDOC.HOSPP ---
- Subjective Encounter Date: 10/23/19 Encounter Time: 09:35 Subjective: f/u for leptomeningeal enhancement and CVA with R hemiparesis. Plan for angiogram today and MRI brain with eventual brain bx per Neurosurgery. - Objective Vital Signs & Weight: Vital Signs (12 hours) Temp Pulse Resp BP Pulse Ox 10/23/19 07:51 97.5 F L 73 16 142/89 H 98 10/23/19 07:30 98 10/23/19 04:00 98.6 F 86 16 139/92 H 94 L 10/23/19 00:03 98.6 F 94 16 142/94 H 95 Weight Admit Weight 218 lb Weight 218 lb 0.595 oz Most Recent Monitor Data Heart Rate from ECG 85 NIBP 102/66 NIBP BP-Mean 78 Respiration from ECG 18 SpO2 96 I&O: 10/22/19 10/23/19 10/24/19 06:59 06:59 06:59 Intake Total 670 Output Total 275 0 Balance 395 0 Result Diagrams: 10/21/19 04:16 10/21/19 04:16 Additional Labs: Microbiology 10/17/19 11:45 Spinal Fluid Culture Cryptococcal Antigen - Final 10/16/19 11:45 Spinal Fluid Culture Body Fluid Culture - Preliminary Radiology Reviewed by me: Yes (Venous dopp - negative DVT) EKG Reviewed by me: Yes (Tele - SR) Hospitalist ROS - Medication Medications: Active Medications Generic Name Dose Route Start Last Admin Trade Name Freq PRN Reason Stop Dose Admin Acetaminophen 500 mg 10/19/19 09:50 10/20/19 09:20 Tylenol PO 500 mg Q6H PRN Administration Mild Pain (1-3) Calcium Carbonate 1,000 mg 10/19/19 09:50 10/20/19 09:19 Tums PO 1,000 mg Q4H PRN Administration Heartburn or Indigestion Famotidine 20 mg 10/17/19 21:00 10/22/19 20:57 Pepcid SLOW IVP 20 mg BID KYLE Administration Hydralazine HCl 10 mg 10/14/19 17:47 10/16/19 20:18 Apresoline SLOW IVP 10 mg Q15MIN PRN Administration SBP >140 Sodium Chloride 1,000 mls @ 50 mls/hr 10/17/19 06:45 10/22/19 05:49 Normal Saline 0.9% IV 1,000 mls .Q20H KYLE Administration Labetalol HCl 10 mg 10/14/19 17:46 10/21/19 04:40 Normodyne SLOW IVP 10 mg Q15MIN PRN Administration Sbp Greater Than 140 Levetiracetam 500 mg 10/22/19 21:00 10/22/19 20:57 Keppra PO 500 mg BID KYLE Administration - Exam General Appearance: NAD, awake alert Eye: PERRL, anicteric sclera ENT: normocephalic atraumatic, no oropharyngeal lesions Neck: supple, symmetric, no JVD, no thyromegaly Heart: RRR, no gallops, no rubs, normal peripheral pulses Respiratory: CTAB, no wheezes, no rales, no ronchi Gastrointestinal: soft, non-tender, non-distended, normal bowel sounds, no palpable masses Extremities: no cyanosis, no clubbing, no edema Skin: normal turgor, no lesions Neurological: no new deficit Neurological - other findings: R hemiparesis, R facial droop, dysarthria Musculoskeletal: generalized weakness Psychiatric: oriented to person, oriented to place Hosp A/P (1) Acute CVA (cerebrovascular accident) Code(s): I63.9 - CEREBRAL INFARCTION, UNSPECIFIED Status: Acute Plan: Continue general stroke protocol, ASA/anticoagulation on hold due to concern for hemorrhagic elements (2) 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 Code(s): R90.89 - OTH ABNORMAL FINDINGS ON DIAGNOSTIC IMAGING OF CNSL Status: Acute Plan: Plan for angiogram and eventual brain bx to further define (3) Chronic anticoagulation Code(s): Z79.01 - STATION INSPECTOR (CURRENT) USE OF ANTICOAGULANTS Status: Chronic Plan: On hold, see above (4) HTN (hypertension) Code(s): I10 - ESSENTIAL (PRIMARY) HYPERTENSION Status: Chronic Qualifiers: Hypertension type: essential hypertension Qualified Code(s): I10 - Essential (primary) hypertension (5) Seizure disorder Code(s): G40.909 - EPILEPSY, UNSP, NOT INTRACTABLE, WITHOUT STATUS EPILEPTICUS Status: Chronic Plan: Continue Keppra - Plan 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
--- NOTE | 2019-10-23 12:21 | PRG ---
DATE OF SERVICE: 10/23/2019 Mr. Arredondo was admitted for waxing and waning ischemic stroke symptoms at the time of his initial presentation. Since that time, he has undergone additional workup and evaluation, which has prompted potential concerning for vasculitis. Dr. Coronado has requested cerebral angiography. I met with the patient today to review with him again his imaging up to date, the differential diagnosis and purpose for the planned angiography today to rule out vasculitis. I discussed with him the risks, the benefits, and the alternatives. I answered questions. Informed consent was provided. His was also part of the discussion and has offered consent as well. Job ID: [id number]
[2019-10-23] MEDS ORDERED: Iopamidol 370 76% 100 ML VIAL ONE (13:27)
[2019-10-23 15:33] LABS: ANA Symphony (Qualitative) Negative (Negative); ANA Symphony (Quantitative) 0.2 Ratio (< 0.7 Negative); dsDNA IgG Antibody Less than 0.5 IU/mL (<10 Negative)
--- NOTE | 2019-10-23 15:44 | MRI ---
MRI BRAIN WITH AND WITHOUT CONTRAST: HISTORY: Left temporal lobe lesion. Preoperative exam. Brain lab protocol. COMPARISON: 10/15/2019 FINDINGS: Gradient echo sequence: Stable hemosiderin deposition in the right temporal region. Calvarium: T1 marrow signal hypointensity. Correlate for edema or marrow infiltrative process. Midline brain parenchyma: Unremarkable. Cerebrum: Redemonstration of encephalomalacia involving the anterior pole the left temporal lobe. The re is preservation of cortical esquivel-white matter differentiation throughout the remainder the cerebrum. Ventricles: No evidence of hydrocephalus. Sinuses and mastoid air cells: Adequate aeration. Diffusion: Arterial flow void of the right M1 segment and internal carotid artery is maintained. Flow void in the left internal carotid artery and proximal M1 segment is also noted. Post contrast images demonstrate a filling defect which may represent partial thrombus in the distal left M1 segmen t. Acute infarct involving the left lentiform nucleus and left caudate nucleus. There is restricted diffusion. Post contrast images:Redemonstration of enhancing focus in the right cerebellar hemisphere, measuring 0.9 x 0.5 cm. Additional components of pial enhancement are identified in both cerebellar hemisphere. There is an enhancing focus in the left occipital lobe, measuring 1.1 x 1.0 cm. IMPRESSION: Areas of enhancement and infarct as described above. Transcribed Date/Time: 10/23/2019 3:55 PM
[2019-10-23] MEDS: Atorvastatin Calcium 20 MG TAB PO SCH (21:56)
[2019-10-24 05:11] LABS: PTT 29.2 SEC (22.9-36.1); Prothrombin Time 13.5 SEC (12.0-14.7)
[2019-10-24 05:13] LABS: #Basophils 0.1 thou/uL (0.0-0.2); #Eosinphils 0.5 thou/uL (0.0-0.7); #Lymphocytes 1.4 thou/uL (1.20-3.40); #Neutrophils 5.3 thou/uL (1.40-6.50); %Basophils 0.7 % (0.0-1.0); %Eosinophils 5.9 % (0.0-10.0); %Lymphocytes 17.4 % (21.0-51.0); %Monocytes 11.7 % (0.0-10.0); %Neutrophils 64.3 % (42.0-75.0); Hemoglobin 14.4 g/dL (14.0-18.0); Mean Corpuscular HGB CONC 34.2 g/dL (32.0-36.0); Mean Corpuscular Hemoglobin 31.4 pg (27.0-31.0); Mean Platelet Volume 6.8 fL (7.4-10.4); Platelet Count 214 thou/uL (130-400); RBC Distribution Width 12.3 % (11.5-14.5); Red Blood Cell (RBC) Count 4.58 mill/uL (4.70-6.10); White Blood Cell (WBC) Count 8.2 thou/uL (4.8-10.8)
[2019-10-24 05:25] LABS: Anion Gap 10 mmol/L (10-20); BUN (Urea Nitrogen) 14 mg/dL (8.4-25.7); Calc. Creatinine Clearance 134 mL/min (70-130); Calcium 8.1 mg/dL (7.8-10.44); Carbon Dioxide 25 mmol/L (23-31); Chloride 108 mmol/L (98-107); Estimated GFR-MDRD Greater than 90; Glucose 90 mg/dL (80-115); Potassium 3.5 mmol/L (3.5-5.1); Sodium 139 mmol/L (136-145)
[2019-10-24] MEDS: Sodium Chloride 0.9% 1,000 ML IV SCH ×2 (07:34→18:26)
[2019-10-24] MEDS ORDERED: Bacitracin Zinc Ointment 30 gm TUBE ONE (08:46)
[2019-10-24] MEDS ORDERED: Thrombin 5000 UNITS/5 ML VIAL ONE (08:46)
[2019-10-24] MEDS ORDERED: Fentanyl 100 MCG/2 ML VIAL ONE ×3 (08:47→16:13)
[2019-10-24] MEDS ORDERED: Lidocaine 2% Jelly 5 ML TUBE ONE (08:47)
[2019-10-24] MEDS: Famotidine/PF 20 mg/2ml Vial SLOW IVP SCH ×2 (08:57→21:15)
[2019-10-24] MEDS: levETIRAcetam 500 MG TAB PO SCH (08:57)
[2019-10-24] MEDS: Donepezil HCl 5 MG TAB PO SCH (08:57)
[2019-10-24] MEDS: Lisinopril 5 MG TAB PO SCH (08:57)
[2019-10-24] MEDS: Gabapentin 300 MG CAP PO SCH (08:57)
[2019-10-24] MEDS ORDERED: ePHEDrine/0.9% NaCl/PF SYRINGE 50 mg/10 ml ONE (09:07)
[2019-10-24] MEDS ORDERED: Ondansetron PF 4 MG/2 ML Vial ONE (09:07)
[2019-10-24] MEDS ORDERED: Esmolol 100 MG/10 ML VIAL ONE (09:07)
[2019-10-24] MEDS ORDERED: Glycopyrrolate 0.2 MG/ML 5 ML SYRINGE ONE (09:07)
[2019-10-24] MEDS ORDERED: Lidocaine 1% PF 5 ML VIAL ONE (09:07)
[2019-10-24] MEDS ORDERED: PHENYLEPHRINE-NS 100 MCG/ML 10 ML SYRINGE ONE (09:07)
[2019-10-24] MEDS ORDERED: PROPOFOL 200 MG/20 ML VIAL ONE (09:07)
[2019-10-24] MEDS ORDERED: Rocuronium Bromide 10 MG/ML (10ML VIAL) ONE (09:07)
[2019-10-24] MEDS ORDERED: Rocuronium Bromide 50 MG/5 ML VIAL ONE (10:57)
[2019-10-24] MEDS ORDERED: Fosphenytoin Sodium 500 mg/10 ml Vial ONE (12:21)
[2019-10-24] MEDS ORDERED: Promethazine HCl 25 MG/ML VIAL SLOW IVP PRN (12:59)
[2019-10-24] MEDS ORDERED: Promethazine HCl 25 MG/ML VIAL IM PRN (12:59)
[2019-10-24] MEDS ORDERED: Ondansetron HCl/PF 4 MG/2 ML Vial IVP PRN (12:59)
[2019-10-24] MEDS ORDERED: Pantoprazole 40 MG VIAL IVP SCH (13:15)
[2019-10-24] MEDS ORDERED: Dexamethasone 10 MG in Sodium Chloride 0.9% 50 ML IVPB SCH (13:15)
[2019-10-24] MEDS ORDERED: Acetaminophen 325 MG TAB PO PRN (13:50)
[2019-10-24] MEDS ORDERED: CEFAZOLIN 2 GM in Premix Bag 1 BAG IVPB SCH (14:00)
[2019-10-24] MEDS ORDERED: Dexamethasone 4 mg/ml Vial ONE ×2 (14:08→14:09)
[2019-10-24] MEDS ORDERED: hydrALAZINE 20 MG/ML VIAL ONE (15:53)
--- NOTE | 2019-10-24 16:55 | PDOC.HOSPP ---
- Subjective Encounter Date: 10/24/19 Encounter Time: 16:20 Subjective: f/u s/p brain bx due to leptomeningeal enhancement by MRI studies. No new issues reported. - Objective Vital Signs & Weight: Vital Signs (12 hours) Temp Pulse Resp BP BP Pulse Ox 10/24/19 08:57 80 121/87 10/24/19 07:40 96 10/24/19 07:39 97.6 F 80 18 121/87 96 Weight Admit Weight 218 lb Weight 218 lb 0.595 oz Most Recent Monitor Data Heart Rate from ECG 85 NIBP 102/66 NIBP BP-Mean 78 Respiration from ECG 18 SpO2 96 I&O: 10/23/19 10/24/19 10/25/19 06:59 06:59 06:59 Intake Total 670 300 Output Total 275 0 Balance 395 300 Result Diagrams: 10/24/19 04:36 10/24/19 04:36 Radiology Reviewed by me: Yes (MRI brain -multiple areas of enhancement, see dictated report) EKG Reviewed by me: Yes (Tele - SR) Hospitalist ROS - Medication Medications: Active Medications Generic Name Dose Route Start Last Admin Trade Name Freq PRN Reason Stop Dose Admin Atorvastatin Calcium 20 mg 10/23/19 21:00 10/23/19 21:56 Lipitor PO 20 mg HS KYLE Administration Calcium Carbonate 1,000 mg 10/19/19 09:50 10/20/19 09:19 Tums PO 1,000 mg Q4H PRN Administration Heartburn or Indigestion Donepezil HCl 5 mg 10/23/19 09:00 10/24/19 08:57 Aricept PO 5 mg DAILY KYLE Administration Famotidine 20 mg 10/17/19 21:00 10/24/19 08:57 Pepcid SLOW IVP 20 mg BID KYLE Administration Gabapentin 300 mg 10/23/19 09:00 10/24/19 08:57 Neurontin PO 300 mg DAILY KYLE Administration Hydralazine HCl 10 mg 10/14/19 17:47 10/16/19 20:18 Apresoline SLOW IVP 10 mg Q15MIN PRN Administration SBP >140 Sodium Chloride 1,000 mls @ 50 mls/hr 10/17/19 06:45 10/24/19 07:34 Normal Saline 0.9% IV 1,000 mls .Q20H KYLE Administration Labetalol HCl 10 mg 10/14/19 17:46 10/21/19 04:40 Normodyne SLOW IVP 10 mg Q15MIN PRN Administration Sbp Greater Than 140 Lisinopril 5 mg 10/23/19 09:00 10/24/19 08:57 Zestril PO 5 mg DAILY KYLE Administration - Exam General Appearance: awake alert General - other findings: aphasic Eye: PERRL, anicteric sclera ENT: normocephalic atraumatic, no oropharyngeal lesions Neck: supple, symmetric, no JVD, no thyromegaly Heart: RRR, no gallops, no rubs, normal peripheral pulses Respiratory - other findings: few scattered rhonchi Gastrointestinal: soft, non-tender, non-distended, normal bowel sounds, no palpable masses Extremities: no cyanosis, no clubbing, no edema Skin: normal turgor, no lesions Neurological: no new deficit Neurological - other findings: R hemiplegia, aphasic Musculoskeletal: generalized weakness Psychiatric: oriented to person, somnolent Hosp A/P (1) 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 Code(s): R90.89 - [facility] ABNORMAL FINDINGS ON DIAGNOSTIC IMAGING OF CNSL Status: Acute Plan: s/p brain bx today, await final pathology, continue Dexamethasone, Fosphenytoin (2) Acute CVA (cerebrovascular accident) Code(s): I63.9 - CEREBRAL INFARCTION, UNSPECIFIED Status: Acute Plan: General stroke mgmt (3) Chronic anticoagulation Code(s): Z79.01 - ASSISTED (CURRENT) USE OF ANTICOAGULANTS Status: Chronic Plan: On hold due to brain bx (4) HTN (hypertension) Code(s): I10 - ESSENTIAL (PRIMARY) HYPERTENSION Status: Chronic Qualifiers: Hypertension type: essential hypertension Qualified Code(s): I10 - Essential (primary) hypertension (5) Seizure disorder Code(s): G40.909 - EPILEPSY, UNSP, NOT INTRACTABLE, WITHOUT STATUS EPILEPTICUS Status: Chronic - Plan continue antibiotics, PT/OT, manager social media, DVT proph w/SCDs Stable currently Continue supportive mgmt and follow general stroke protocol EEG without epileptiform activity but abnormal Brain bx completed Resume Gabapentin Hold ASA/NSAIDs/Anticoagulation Flow cytometry unrevealing Continue Dexamethasone AM lab: BMP, CBC
[2019-10-24] MEDS ORDERED: Dexamethasone 4 MG in Sodium Chloride 0.9% 50 ML IVPB SCH (18:00)
[2019-10-24] MEDS: CEFAZOLIN 2 GM in Premix Bag 1 BAG IVPB SCH (19:59)
[2019-10-24] MEDS: Dexamethasone 4 MG in Sodium Chloride 0.9% 50 ML IVPB SCH (19:59)
[2019-10-24] MEDS: Atorvastatin Calcium 20 MG TAB PO SCH (21:14)
[2019-10-25] MEDS: Dexamethasone 4 MG in Sodium Chloride 0.9% 50 ML IVPB SCH ×4 (02:46→20:19)
[2019-10-25] MEDS: CEFAZOLIN 2 GM in Premix Bag 1 BAG IVPB SCH ×2 (04:46→11:21)
[2019-10-25] MEDS: Labetalol HCl 100 MG/20 ML VIAL SLOW IVP PRN ×2 (05:52→07:12)
[2019-10-25] MEDS: Sodium Chloride 0.9% 1,000 ML IV SCH (05:58)
[2019-10-25 06:14] LABS: Band 1 % (5-11); Hemoglobin 15.1 g/dL (14.0-18.0); Lymphocytes 5 % (21-51); MDiff Complete? YES; Mean Corpuscular HGB CONC 34.2 g/dL (32.0-36.0); Mean Corpuscular Hemoglobin 31.1 pg (27.0-31.0); Mean Corpuscular Volume 91.1 fL (78.0-98.0); Mean Platelet Volume 7.1 fL (7.4-10.4); Monocytes 7 % (0-10); Neutrophil 87 % (42-75); Platelet Count 223 thou/uL (130-400); Platelet Morphology Comment Appears Adequate; RBC Distribution Width 12.4 % (11.5-14.5); Red Blood Cell (RBC) Count 4.84 mill/uL (4.70-6.10); White Blood Cell (WBC) Count 12.9 thou/uL (4.8-10.8)
[2019-10-25 06:15] LABS: Anion Gap 14 mmol/L (10-20); BUN (Urea Nitrogen) 12 mg/dL (8.4-25.7); Calc. Creatinine Clearance 99 mL/min (70-130); Calcium 9.3 mg/dL (7.8-10.44); Carbon Dioxide 21 mmol/L (23-31); Chloride 104 mmol/L (98-107); Dilantin 6.1 ug/mL (10.0-20.0); Estimated GFR-MDRD 75; Glucose 129 mg/dL (80-115); Potassium 4.2 mmol/L (3.5-5.1); Sodium 135 mmol/L (136-145)
[2019-10-25] MEDS: traMADol HCl 50 MG TAB PO PRN (07:14)
--- NOTE | 2019-10-25 07:45 | CT ---
PRELIMINARY REPORT/DIRECT RADIOLOGY/EMERGENCY AFTER HOURS PROCEDURE: PROCEDURE: CT Head without Contrast . HISTORY: Craniotomy. TECHNIQUE: Axial images were performed without the administration of IV contrast with or without mult iplanar reformations . COMPARISON: None . FINDINGS: Trace subdural hemorrhage and pneumocephalus at the craniotomy site posteriorly on the LEFT. Some pn eumocephalus and edema in the biopsy site LEFT parietal lobe. Small amount of interventricular hemorrhage posterior horn LEFT lateral ventricle. No hydrocephalus. No midline shift. Old ischemia involving periventricular white matter bilaterally and LEFT basal gang kathya region. No other acute change identified. IMPRESSION: Small amount of subdural blood and pneumocephalus as described above at craniotomy site posteriorly o n the LEFT in the LEFT parietal lobe. Small amount of interventricular hemorrhage LEFT lateral ventricle. ELECTRONICALLY SIGNED BY: Mike Cuellar MD Oct 25, 2019 4:30:24 AM CLERICAL STOCK INSPECTOR FINAL REPORT HEAD CT WITHOUT CONTRAST: DATE: 10/25/2019. COMPARISON: 10/14/2019. HISTORY: Evaluate brain following craniotomy and left temporal lobe lesion biopsy. FINDINGS: There is evidence of interval recent posterior left craniotomy. There is postoperative gas and fluid subjacent to the craniotomy site with an area of associated intraparenchymal edema. Postoperative cavity within the posterior left temporoparietal region measures 2.6 x 2.5 cm. There is small volume intraventricular hemorrhage within the posterior horns of the lateral ventricles, left greater than right. Hypodensity in the basal ganglia on the left is evidence of recent infarction. Imaged paranasa l sinuses and mastoid air cells well-aerated. No displaced calvarial fracture. IMPRESSION: Interval craniotomy with small volume new intraventricular hemorrhage. Hypodensity in the left basal ganglia, evidence of recent infarction. Transcribed Date/Time: 10/25/2019 7:55 AM
[2019-10-25] MEDS: Donepezil HCl 5 MG TAB PO SCH (08:24)
[2019-10-25] MEDS: Gabapentin 300 MG CAP PO SCH (08:24)
--- NOTE | 2019-10-25 08:25 | OP ---
DATE OF PROCEDURE: 10/24/2019 JIG BORING MACHINE OPERATOR FOR METAL: Shobha Segura PA-C. PREPROCEDURE DIAGNOSIS: Unknown contrast-enhancing leptomeningeal lesion with no diagnosis despite multiple invasive and noninvasive times and need for brain biopsy. POSTPROCEDURE DIAGNOSIS: Unknown contrast-enhancing leptomeningeal lesion with no diagnosis despite multiple invasive and noninvasive times and need for brain biopsy. PROCEDURE PERFORMED: Left temporal stereotactic craniotomy for lesion resection with biopsy. DESCRIPTION OF PROCEDURE: After informed consent was obtained from the patient and his , he was brought to the OR. Proper patient, pause, and identification were carried out. He was placed under excellent general endotracheal anesthesia. He was positioned supine on the OR table with a slight bump underneath the left hemithorax, exposed the left posterior temporal region. His head was secured in the [employer] advertiser [employer] and the stereotactic localized with excellent accuracy. This area was sterilely cleansed, prepared, and draped and a small amount of hair was clipped in a linear fashion. A linear incision was made in a circular craniotomy form. The dura was opened in a cruciate fashion and sent for pathology. We then used stereotactic localization to identify the lesion and it was resected and we went around it and there were areas of abnormal appearing brain. There was slightly yellow tinged with corkscrew appearance of small vessels. My concern was lymphomatous angiitis and/or intravascular lymphoma. We sent the tissue. Wound was copiously irrigated. Hemostasis maximized and the bone reapproximated with plates and screws and the wound was closed in anatomic layers. The patient was taken to the ICU. Job ID: [id number]
[2019-10-25] MEDS ORDERED: Pantoprazole 40 MG VIAL IVP SCH (09:00)
[2019-10-25] MEDS: Lisinopril 5 MG TAB PO SCH (09:07)
[2019-10-25] MEDS ORDERED: Sodium Chloride 0.9% (PF) 10 ML VIAL FS PRN (12:45)
--- NOTE | 2019-10-25 12:47 | PRG ---
DATE OF SERVICE: 10/25/2019 This is Danny Epperson PA-C dictating a report for [place] MD. Mr. Arredondo is postoperative day #1 having undergone a left temporal lobe brain biopsy. There has been no definitive pathology from the biopsy at this point. The patient does have history of seizure disorder. Apparently, Castro gave some suicidal ideation, so he has been switched to fosphenytoin. He is subtherapeutic at this time, so we have loaded him with 10 mg/kg today with a nightly dose of 300 mg and we will recheck his Dilantin level tomorrow. We will also get a lower extremity ultrasound tomorrow morning. In regard to the patient's neurologic exam, he has suffered a significant stroke preoperatively and has dense right-sided hemiplegia. In fact, no movement of the right arm or leg. He does also have some right-sided neglect this morning. He is mainly aphasic, although he is able to mumble a few words here and there. He is able to answer yes or no by shaking his head. At this time, the patient needs to remain with systolic blood pressure less than 140 and continue with neuro checks. Please call with any changes in patient's neurologic status otherwise our team will follow up on the ultrasound and Dilantin level tomorrow. Job ID: [id number]
--- NOTE | 2019-10-25 13:40 | PRG ---
DATE OF SERVICE: 10/25/2019 SUBJECTIVE: The patient had a brain biopsy. He is right now in the ICU. According to the nurse, he was following commands and establishing eye contact, cannot move the right side, but he does move the left and he has been afebrile. OBJECTIVE: LUNGS: Clear. HEART: S1 and S2. Regular rate. Peripheral IV access. ABDOMEN: Soft, not distended. Mejia catheter in place. LABORATORY DATA: White cell count 12.9, hemoglobin 15, and platelets 223 with 87% neutrophils. Creatinine 1.01. The pathology report demonstrated multifocal perivascular chronic inflammation. The dura was unremarkable. ASSESSMENT AND DISCUSSION: 1. History of alcoholism, in remission. 2. Paroxysmal atrial fibrillation. 3. Recurrent cerebrovascular accidents. 4. Anterior and posterior cerebral circulation in right and left side and abnormalities on MRI with some leptomeningeal enhancement and some microhemorrhages with mild lymphocytic pleocytosis in the CSF and the findings in the brain pathology. One possibility would be cerebral amyloid angiopathy, which typically is associated with perivascular chronic inflammation and microhemorrhages on MRI, which are multifocal. This would be a distinct possibility and it is treatable with immunosuppressive medication. The specimen was sent to neuropathologist for consultation. Other chronic infections are not likely. Intra-vascular lymphoma also in the differential. [facility]ake path consult pending. Job ID: [id number] MTDD
[2019-10-25] MEDS ORDERED: Dexamethasone 4 MG in Sodium Chloride 0.9% 50 ML IVPB SCH (14:00)
[2019-10-25] MEDS ORDERED: Dexamethasone 4 MG TAB PO SCH (14:00)
--- NOTE | 2019-10-25 14:29 | PDOC.HOSPP ---
- Subjective Encounter Date: 10/25/19 Encounter Time: 14:00 Subjective: f/u for leptomeningeal enhancement by MRI imaging s/p L temporal lobe bx POD # 1. No new issues reported. - Objective Vital Signs & Weight: Vital Signs (12 hours) Temp Pulse BP Pulse Ox 10/25/19 12:00 98.6 F 10/25/19 09:07 85 131/88 10/25/19 07:52 98 10/25/19 07:12 101 H 178/107 H 10/25/19 07:00 98.3 F 10/25/19 05:52 106 H 159/105 H 10/25/19 04:00 99.2 F Weight Admit Weight 218 lb Weight 206 lb 2.115 oz Most Recent Monitor Data Heart Rate from ECG 78 NIBP 99/65 NIBP BP-Mean 76 Respiration from ECG 19 SpO2 95 I&O: 10/24/19 10/25/19 10/26/19 06:59 06:59 06:59 Intake Total 300 1078 240 Output Total 0 2825 577 Balance 300 -1747 -337 Result Diagrams: 10/25/19 05:49 10/25/19 05:49 Hospitalist ROS - Medication Medications: Active Medications Generic Name Dose Route Start Last Admin Trade Name Freq PRN Reason Stop Dose Admin Artificial Tears 2 drop 10/19/19 09:50 10/25/19 10:03 Tears Naturale EA EYE 2 drop PRN PRN Administration Dry Eyes Atorvastatin Calcium 20 mg 10/23/19 21:00 10/24/19 21:14 Lipitor PO 20 mg HS KYLE Administration Calcium Carbonate 1,000 mg 10/19/19 09:50 10/20/19 09:19 Tums PO 1,000 mg Q4H PRN Administration Heartburn or Indigestion Donepezil HCl 5 mg 10/23/19 09:00 10/25/19 08:24 Aricept PO 5 mg DAILY KYLE Administration Gabapentin 300 mg 10/23/19 09:00 10/25/19 08:24 Neurontin PO 300 mg DAILY KYLE Administration Hydralazine HCl 10 mg 10/14/19 17:47 10/16/19 20:18 Apresoline SLOW IVP 10 mg Q15MIN PRN Administration SBP >140 Sodium Chloride 1,000 mls @ 50 mls/hr 10/17/19 06:45 10/25/19 05:58 Normal Saline 0.9% IV 1,000 mls .Q20H KYLE Administration Fosphenytoin Sodium 300 mg/ 56 mls @ 112 mls/hr 10/24/19 21:00 10/24/19 21:20 Sodium Chloride IVPB 56 mls HS KYLE Administration Dexamethasone 4 mg/ Sodium 51 mls @ 100 mls/hr 10/24/19 20:00 10/25/19 08:22 Chloride IVPB 10/27/19 14:01 51 mls 0200,0800,1400,2000 KYLE Administration Labetalol HCl 10 mg 10/14/19 17:46 10/25/19 07:12 Normodyne SLOW IVP 10 mg Q15MIN PRN Administration Sbp Greater Than 140 Lisinopril 5 mg 10/23/19 09:00 10/25/19 09:07 Zestril PO 5 mg DAILY KYLE Administration Tramadol HCl 50 mg 10/24/19 13:51 10/25/19 07:14 Ultram PO 50 mg Q6H PRN Administration Moderate to Severe Pain (6-10) - Exam General Appearance: NAD General - other findings: aphasic, nods head to questions occasionally Eye: PERRL, anicteric sclera ENT: normocephalic atraumatic, no oropharyngeal lesions Neck: supple, symmetric, no JVD, no thyromegaly Heart: RRR, no gallops, no rubs, normal peripheral pulses Respiratory: CTAB, no wheezes, no rales, no ronchi, normal chest expansion Gastrointestinal: soft, non-tender, non-distended, normal bowel sounds Extremities: no cyanosis, no clubbing, no edema Skin: normal turgor, no lesions Neurological: no new deficit Neurological - other findings: R flaccid hemiplegia, aphasic Musculoskeletal: generalized weakness Psychiatric: oriented to person, flat affect Hosp A/P (1) 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 Code(s): R90.89 - [facility] ABNORMAL FINDINGS ON DIAGNOSTIC IMAGING OF CNSL Status: Acute Plan: Pathology showing multifocal chronic perivascular inflammation, recommend immunosuppressive therapy (2) Acute CVA (cerebrovascular accident) Code(s): I63.9 - CEREBRAL INFARCTION, UNSPECIFIED Status: Acute Plan: Continue general stroke protocol (3) Chronic anticoagulation Code(s): Z79.01 - INTERMEDIATE (CURRENT) USE OF ANTICOAGULANTS Status: Chronic Plan: On hold due to microhemorrhages and s/p brain bx (4) HTN (hypertension) Code(s): I10 - ESSENTIAL (PRIMARY) HYPERTENSION Status: Chronic Qualifiers: Hypertension type: essential hypertension Qualified Code(s): I10 - Essential (primary) hypertension (5) Seizure disorder Code(s): G40.909 - EPILEPSY, UNSP, NOT INTRACTABLE, WITHOUT STATUS EPILEPTICUS Status: Chronic Plan: Continue Fosphenytoin IV - Plan PT/OT, social media community manager, speech therapy, respiratory therapy, DVT proph w/SCDs Stable currently Continue supportive mgmt and follow general stroke protocol EEG without epileptiform activity but abnormal Brain bx completed showing multifactoral chronic perivascular inflammation Resume Gabapentin Hold ASA/NSAIDs/Anticoagulation Flow cytometry unrevealing Continue Dexamethasone AM lab: BMP, CBC
--- NOTE | 2019-10-25 16:13 | CCL ---
DATE OF SERVICE: 10/23/19 SURGEON: Case Nicole M.D. PARTS DEPARTMENT SUPERVISOR: None. INDICATION: Ischemic stroke, diffusion weighted abnormalities on MRI and leptomeningeal lesions on MRI. PROCEDURE: Cerebral angiography. TECHNIQUE: The patient was brought into the angiogram suite and placed on the table in the supine position. Both groins were prepped and draped and draped in the usual sterile fashion. 1% lidocaine was used to inj ect the right groin. Using the 5 Maltese micropuncture set, access was gained to the right common femo ral artery. Using the Seldinger technique, a 5 Maltese sheath was placed. A 5 Maltese diagnostic cathet er was passed over a Bentzen guidewire which was advanced into the aortic arch where the right leadership program internship al carotid artery was selectively catheterized. AN AP and lateral angiogram was performed. The cathet er was then placed into the left internal carotid artery where an AP and lateral angiogram was perfor med. The catheter was then placed within the left vertebral artery where an AP and lateral angiogram was performed. The catheter was then removed. The sheath was removed and hemostasis was maintained wi th manual compression. The procedure came to an end without known complication. IMPRESSION: Cerebral angiography was performed from the right internal carotid artery and reveals no evidence of vasculitis. The vasculature fills the right side with respect to the YUMIKO and MCA territory without an y obvious abnormality. Cerebral angiography is performed from the left internal carotid artery and reveals the presence of c omplete occlusion of the left middle cerebral artery. The left middle cerebral artery territory; hoep clarissa, fills quite well via collaterals from the anterior cerebral artery branch. No evidence for vascu litis is identified. Cerebral angiography is performed from the left vertebral artery and reveals no convincing evidence f or vasculitis. There does appear to be some evidence of atherosclerosis along the distal aspect of th e basilar artery and the proximal aspect of both P1 segments of the posterior cerebral arteries. Othe rwise, the vascular territory fills normally.
--- NOTE | 2019-10-25 16:51 | PRG ---
DATE OF SERVICE: 10/25/2019 SERVICE: Pulmonary Medicine. INTERVAL HISTORY: The patient ended up going for a biopsy of the dura and brain yesterday. He is recovering in the ICU. At this point, he is somnolent. He is not able to provide much in the way of interval history. There were no significant overnight events and his neurologic exam remained stable. PHYSICAL EXAMINATION: VITAL SIGNS: Afebrile, pulse 86, blood pressure 104/68, respirations 24, saturation 97%, currently on 2 L nasal cannula. GENERAL: The patient is somnolent. He is in no apparent distress. HEENT: Normocephalic and atraumatic. Sclerae white. Conjunctivae pink. Oral mucosa is moist without lesions. LUNGS: Decent air entry. No prolonged expiratory phase or wheezing is appreciated. HEART: Normal rate regular. ABDOMEN: Soft, nontender, and nondistended. Bowel sounds are positive. MUSCULOSKELETAL: No cyanosis or clubbing. There is 1 to 2+ pitting throughout. LABORATORY DATA: WBC 12.9, hemoglobin 15.1, platelets 223,000. Neutrophil count is 87% on top of 1% bands. INR 1.0. Basic metabolic profile is essentially unremarkable other than a gently up trending creatinine of 1.01. HARLODO screen is completely unremarkable. Syphilis, HIV, and fungal studies are negative today. Cryptococcal antigen and CSF culture negative. IMAGING: CT of the brain demonstrates findings consistent with post biopsy. Small amount of subdural blood and pneumocephalus are present. Small amount of hemorrhage in the left lateral ventricle. All of this is consistent with post biopsy state. ASSESSMENT: 1. Acute cerebrovascular accident in left middle cerebral artery distribution. 2. Brain mass with leptomeningeal enhancement. 3. History of alcohol abuse. 4. Aortic stenosis, severe. DISCUSSION AND PLAN: It appears that the biopsy is consistent with perivascular chronic inflammatory changes. Neuro-pathology consultation is currently pending. No evidence of malignancy is identified. We will continue to follow while the patient remains in the ICU, and intermittently there after. Please call with additional questions or concerns. At this point, the patient appears to be protecting his airway. Job ID: [id number]
[2019-10-25] MEDS: Atorvastatin Calcium 20 MG TAB PO SCH (20:19)
[2019-10-26] MEDS: Dexamethasone 4 MG in Sodium Chloride 0.9% 50 ML IVPB SCH ×4 (02:40→19:36)
[2019-10-26] MEDS ORDERED: Enoxaparin Sodium 40 MG/0.4 ML SYRINGE SC SCH (09:00)
[2019-10-26] MEDS: Lisinopril 5 MG TAB PO SCH (09:02)
[2019-10-26] MEDS: Pantoprazole 40 MG VIAL IVP SCH (09:02)
[2019-10-26] MEDS: Gabapentin 300 MG CAP PO SCH (09:02)
[2019-10-26] MEDS: Donepezil HCl 5 MG TAB PO SCH (09:02)
--- NOTE | 2019-10-26 09:27 | PRG ---
DATE OF SERVICE: 10/26/2019 SUBJECTIVE: A 64-year-old gentleman remains in the ICU with a right-sided weakness. He has left parietal lobe biopsy, which is so far nondiagnostic. Still having problems with his swallowing. OBJECTIVE: VITAL SIGNS: blood pressure 117/74, respiratory rate 18 afebrile. GENERAL: He denies any pain or discomfort. CHEST: No wheezing, crackles. CARDIAC: Normal S1, S2. No gallops. ABDOMEN: No masses. IMPRESSION: 1. Cerebrovascular accident, right-sided weakness, abnormal MRI, status post brain biopsy. 2. Aortic stenosis. 3. Atrial fibrillation. Probably, he can be transferred to a stroke unit today. Continue aggressive PT. Final path of the brain biopsy pending. Job ID: [id number]
--- NOTE | 2019-10-26 10:13 | PRG ---
DATE OF SERVICE: 10/26/2019 SUBJECTIVE: The patient is now postoperative day #2 status post a left temporal brain biopsy. He has had no overnight events. His repeat dilantin level this morning is in appropriate range of 15.5. His initial pathology reports are notable for nonspecific inflammatory changes and they have recommended sending the specimen to a neuropathologist for additional review. I have discussed this with the over the phone. He is currently getting a bedside ultrasound of his lower extremities. OBJECTIVE: On exam this morning, his vital signs are stable and his blood pressure has been well controlled. He has a dense right-sided hemiparesis, which is unchanged from prior exams. He does have some good strength on the left. He has some dysarthria, but is able to answer my questions appropriately. PLAN: We will continue to follow his ultrasound and any additional path reports closely. At this point, we feel that the patient could be transferred to the stroke unit at any point in time. We will follow along closely. I have also changed his neuro checks to q.4. Job ID: [id number] [facility]
--- NOTE | 2019-10-26 10:40 | ULT ---
BILATERAL LOWER EXTREMITY VENOUS ULTRTASOUND WITH DOPPLER: COMPARISON: 10/22/2019. HISTORY: Immobility. FINDINGS: RIGHT LOWER EXTREMITY: There is compressibility, presence of flow, and augmentation in the common femoral vein. There is la ck of compressibility in the femoral vein, popliteal vein with evidence of echogenic material and lac k of flow suggesting thrombus. There is flow in the profunda femoral vein, greater saphenous vein. There is lack of compressibility and decreased flow in the posterior tibial vein. LEFT LOWER EXTREMITY: There is compressibility, presence of flow, and augmentation in the common femoral vein, femoral vein , and popliteal vein. Flow in the greater saphenous vein, profunda femoral vein, and posterior tibia l vein. IMPRESSION: Right lower extremity deep venous thrombus from the femoral vein to the posterior tibial veins. Results of the study were conveyed to the patient's nurse, Karlene, by the rug drying machine operator 10/26/2019 at 9 :38 a.m. CODE ISAURA POS: ENRIKE
[2019-10-26] MEDS: Sodium Chloride 0.9% 1,000 ML IV SCH (11:49)
[2019-10-26 15:06] LABS: Ref Lab Test Ordered HISTOPLASMA AG CSF; Reference Lab Name LABCORP
--- NOTE | 2019-10-26 15:38 | PRG ---
DATE OF SERVICE: 10/26/2019 The patient is clinically unchanged. Plans are being made for transfer to the floor. Final pathology is pending outside Neuropathology review. The patient had DVT discovered on ultrasound of the legs and is being started on anticoagulation. Job ID: [id number]
--- NOTE | 2019-10-26 17:24 | PDOC.HOSPP ---
- Subjective Encounter Date: 10/26/19 Encounter Time: 09:00 Subjective: pt up in bed awake but has right side weakness - Objective Vital Signs & Weight: Vital Signs (12 hours) Temp Pulse BP Pulse Ox 10/26/19 17:00 98.5 F 10/26/19 12:00 98.8 F 10/26/19 09:02 85 117/74 10/26/19 07:43 95 10/26/19 07:00 98.2 F Weight Admit Weight 218 lb Weight 210 lb 5.136 oz Most Recent Monitor Data Heart Rate from ECG 80 NIBP 113/83 NIBP BP-Mean 93 Respiration from ECG 25 SpO2 97 I&O: 10/25/19 10/26/19 10/27/19 06:59 06:59 06:59 Intake Total 1078 2606 600 Output Total 2825 2392 730 Balance -1747 214 -130 Result Diagrams: 10/25/19 05:49 10/25/19 05:49 Hospitalist ROS - Review of Systems Cardiovascular: denies: chest pain, palpitations, orthopnea, paroxysmal noc. dyspnea, edema, light headedness, other Gastrointestinal: denies: nausea, vomiting, abdominal pain, diarrhea, constipation, melena, hematochezia, other Genitourinary: denies: dysuria, frequency, incontinence, hematuria, retention, other Musculoskeletal: denies: neck pain, shoulder pain, arm pain, back pain, hand pain, leg pain, foot pain, other - Medication Medications: Active Medications Generic Name Dose Route Start Last Admin Trade Name Freq PRN Reason Stop Dose Admin Artificial Tears 2 drop 10/19/19 09:50 10/25/19 10:03 Tears Naturale EA EYE 2 drop PRN PRN Administration Dry Eyes Atorvastatin Calcium 20 mg 10/23/19 21:00 10/25/19 20:19 Lipitor PO 20 mg HS KYLE Administration Calcium Carbonate 1,000 mg 10/19/19 09:50 10/20/19 09:19 Tums PO 1,000 mg Q4H PRN Administration Heartburn or Indigestion Donepezil HCl 5 mg 10/23/19 09:00 10/26/19 09:02 Aricept PO 5 mg DAILY KYLE Administration Gabapentin 300 mg 10/23/19 09:00 10/26/19 09:02 Neurontin PO 300 mg DAILY KYLE Administration Hydralazine HCl 10 mg 12/30/19 17:47 10/16/19 20:18 Apresoline SLOW IVP 10 mg Q15MIN PRN Administration SBP >140 Sodium Chloride 1,000 mls @ 50 mls/hr 10/17/19 06:45 10/26/19 11:49 Normal Saline 0.9% IV Not Given .Q20H KYLE Fosphenytoin Sodium 300 mg/ 56 mls @ 112 mls/hr 10/24/19 21:00 10/25/19 20:19 Sodium Chloride IVPB 56 mls HS KYLE Administration Dexamethasone 4 mg/ Sodium 51 mls @ 100 mls/hr 10/24/19 20:00 10/26/19 14:10 Chloride IVPB 10/27/19 14:01 51 mls 0200,0800,1400,2000 KYLE Administration Labetalol HCl 10 mg 10/14/19 17:46 10/25/19 07:12 Normodyne SLOW IVP 10 mg Q15MIN PRN Administration Sbp Greater Than 140 Lisinopril 5 mg 10/23/19 09:00 10/26/19 09:02 Zestril PO 5 mg DAILY KYLE Administration Pantoprazole Sodium 40 mg 10/26/19 09:00 10/26/19 09:02 Protonix IVP 40 mg DAILY KYLE Administration Tramadol HCl 50 mg 10/24/19 13:51 10/25/19 07:14 Ultram PO 50 mg Q6H PRN Administration Moderate to Severe Pain (6-10) - Exam Neck: negative: supple, symmetric, no JVD, no thyromegaly, no lymphadenopathy, no carotid bruit, JVD Heart: negative: RRR, no murmur, no gallops, no rubs, normal peripheral pulses, irregular, diminshed peripheral pulses, murmur present, II/IV, III/IV Respiratory: negative: CTAB, no wheezes, no rales, no ronchi, normal chest expansion, no tachypnea, normal percussion, rales, rhonchi, tachypneic, wheezes Gastrointestinal: negative: soft, non-tender, non-distended, normal bowel sounds , no palpable masses, no hepatomegaly, no splenomegaly, no bruit, no guarding, no rigidity, tender to palpation, distended, diminished bowl sounds, voluntary guarding Neurological - other findings: rightside weakness Hosp A/P (1) DVT (deep venous thrombosis) Code(s): I82.409 - ACUTE EMBOLISM AND THOMBOS UNSP DEEP VN UNSP LOWER EXTREMITY Status: Acute (2) Acute CVA (cerebrovascular accident) Code(s): I63.9 - CEREBRAL INFARCTION, UNSPECIFIED Status: Acute (3) 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 Code(s): R90.89 - OTH ABNORMAL FINDINGS ON DIAGNOSTIC IMAGING OF CNSL Status: Acute (4) Chronic anticoagulation Code(s): Z79.01 - SOLE LEVELER (CURRENT) USE OF ANTICOAGULANTS Status: Chronic (5) HTN (hypertension) Code(s): I10 - ESSENTIAL (PRIMARY) HYPERTENSION Status: Chronic Qualifiers: Hypertension type: essential hypertension Qualified Code(s): I10 - Essential (primary) hypertension (6) Obesity (BMI 30.0-34.9) Code(s): E66.9 - OBESITY, UNSPECIFIED Status: Chronic (7) Seizure disorder Code(s): G40.909 - EPILEPSY, UNSP, NOT INTRACTABLE, WITHOUT STATUS EPILEPTICUS Status: Chronic - Plan pt was on xarelto when he came in for stroke alert. He did have a stroke but his mri brain indicated leptomeningeal caricnomatosis. He underwent csf analysis which was not conclusive and then underwent brain biopsy which did not indicate lymphoma. His biopsy has been sent to neuropathlogy. Pt now has a dvt in his right lower ext. I spoke with neurosurgery if he could be anticoagulated. Neruosurgery stated he could be. I also called neurology but the neurologist claire did not know the patient and stated that she would see the patient marta. I did speak with his in detail concern for possible bleeding if we anticoagulated she understood. Also he was on xarelto and had a stroke i do not think an ivc filter would be helpful especially if he is hypercoaguable.
[2019-10-26] MEDS: Atorvastatin Calcium 20 MG TAB PO SCH (20:57)
[2019-10-26] MEDS: Enoxaparin Sodium 100 MG/ML SYRINGE SC SCH (20:57)
[2019-10-27] MEDS: Dexamethasone 4 MG in Sodium Chloride 0.9% 50 ML IVPB SCH ×3 (04:19→15:06)
[2019-10-27] MEDS: Sodium Chloride 0.9% 1,000 ML IV SCH (08:13)
[2019-10-27] MEDS: Pantoprazole 40 MG VIAL IVP SCH (08:21)
[2019-10-27] MEDS: Lisinopril 5 MG TAB PO SCH (08:22)
[2019-10-27] MEDS: Donepezil HCl 5 MG TAB PO SCH (08:22)
[2019-10-27] MEDS: Gabapentin 300 MG CAP PO SCH (08:22)
[2019-10-27] MEDS: Enoxaparin Sodium 100 MG/ML SYRINGE SC SCH ×2 (08:22→22:12)
--- NOTE | 2019-10-27 09:24 | PRG ---
DATE OF SERVICE: 10/27/2019 The patient is now postoperative day #3, status post left temporal brain biopsy. His lower extremity ultrasound revealed a right lower extremity DVT. I discussed with the hospitalist and we felt that he was appropriate for anticoagulation. On exam this morning, the patient's vital signs are stable and his blood pressure remains well controlled. He is awake, alert, and oriented x3. He has some notable dysarthria of the speech and persistent right-sided hemiparesis, which is unchanged. Continue PT, OT, and speech therapy. The patient will require rehab at some point. Neurosurgery agrees with plan for anticoagulation considering his recently discovered right lower extremity DVT. Job ID: [id number]
--- NOTE | 2019-10-27 10:35 | CON ---
DATE OF CONSULTATION: 10/27/2019 CHIEF COMPLAINT: Acute stroke. HISTORY OF PRESENT ILLNESS: The patient has been admitted since October 14. Dr. Irizarry has also seen this patient in consultation and his opinion was whether this patient has amyloidosis, and the patient was admitted with acute onset right hemiparesis and there is some history of possible hemorrhage in the left parietal region. CT angiogram showed left M1 segment stenosis and he had hypertension and his Xarelto was held. The patient was also seen by Dr. Irizarry in his office, and per Dr. Irizarry's note has reported a rapid decline in memory over 2 to 3 weeks' time period, and current question is whether he can be anticoagulated for his DVT. The patient has been seen by multiple physicians including Neurosurgery and he had a brain biopsy for the lesion and per Neurosurgery Team, the patient can be anticoagulated at this time. The patient had a most recent CT of the head performed on the , and the CT does show small amount of subdural bled and pneumocephalus at the craniotomy site and a small amount of left ventricular hemorrhage. He had a diagnosis of DVT as well. I reviewed his chart in its entirety and I have reviewed his MRI results as well and the lab reports so far including CSF results, which were relatively inconclusive. On examination, the patient has dysarthria and predominantly left-sided flaccid weakness and he is unable to talk well and he has left-sided ptosis as well. Based on the clinical picture and his examination, he has ischemic stroke as his primary diagnosis and he has this left temporal lesion, which is unclear whether it is carcinomatosis versus vasculitis. Biopsy results are currently pending. I understand that this is pending Neuropathology reporting at this time. I think the patient can be anticoagulated for the DVT, which can become more life-threatening. If there is any concern for bleed, you can consider putting a filter as per my discussion with Dr. Acosta last night. Please request Dr. Irizarry to start seeing the patient again tomorrow. He might need hematology workup as well to rule out any hypercoagulable state and he may need more treatments with immunosuppressants if there is high suspicion for CRAFT CENTER DIRECTOR vasculitis. Since he is Dr. Irizarry's patient, he can return to him once he is discharged from the hospital. He is currently on high-dose Lovenox per my understand. Please call me if you have any further questions. Job ID: [id number]
--- NOTE | 2019-10-27 12:20 | PRG ---
DATE OF SERVICE: 10/27/2019 SUBJECTIVE: Jarrod Arredondo is awake, alert, responsive, sitting on the side of the bed, trying to eat his dinner. OBJECTIVE: VITAL SIGNS: Temperature 97, pulse 91, respiratory rate 16, saturations 98% on room air, blood pressure 120/78. GENERAL: Denies any pain or discomfort. CHEST: No wheezing or crackles. CARDIAC: Normal S1 and S2. No gallops. IMPRESSION: Cerebrovascular accident, right-sided weakness, status post cranial biopsy. PLAN: Continue to get path. Continue Decadron, supportive care, PT. Job ID: [id number]
--- NOTE | 2019-10-27 13:44 | PRG ---
DATE OF SERVICE: 10/27/2019 The patient was seen and examined. Clinically, he is unchanged. He had a DVT diagnosed and I think it is reasonable to begin anticoagulation. We relayed this to the Medicine Team. No further Neurosurgical recommendations at this time. Job ID: [id number]
[2019-10-27] MEDS ORDERED: Dexamethasone 1 MG TAB PO SCH (14:00)
--- NOTE | 2019-10-27 14:07 | PDOC.HOSPP ---
- Subjective Subjective: Seen and examined on the medical unit telemetry. Patient is being fed by nursing staff. Patient speech is not comprehensible and garbled. Does not answer questions appropriately though will follow simple commands. Denies pain. Breathing comfortably. - Objective Vital Signs & Weight: Vital Signs (12 hours) Temp Pulse Pulse Resp BP BP BP 10/27/19 11:47 97.9 F 91 16 123/78 10/27/19 08:57 10/27/19 08:37 95 121/72 10/27/19 08:22 95 10/27/19 08:14 98.9 F 95 18 113/70 10/27/19 03:56 97.8 F 89 18 141/87 H Pulse Ox 10/27/19 11:47 98 10/27/19 08:57 96 10/27/19 08:37 10/27/19 08:22 10/27/19 08:14 96 10/27/19 03:56 94 L Weight Admit Weight 218 lb Weight 210 lb 5.136 oz Most Recent Monitor Data Heart Rate from ECG 94 NIBP 123/84 NIBP BP-Mean 97 Respiration from ECG 17 SpO2 98 I&O: 10/26/19 10/27/19 10/28/19 06:59 06:59 06:59 Intake Total 2606 2245 Output Total 2392 1430 Balance 214 815 Result Diagrams: 10/25/19 05:49 10/25/19 05:49 Radiology Reviewed by me: Yes Hospitalist ROS - Review of Systems All other systems reviewed; all pertinent +/- noted in HPI/Subj - Medication Medications: Active Medications Generic Name Dose Route Start Last Admin Trade Name Freq PRN Reason Stop Dose Admin Artificial Tears 2 drop 10/19/19 09:50 10/25/19 10:03 Tears Naturale EA EYE 2 drop PRN PRN Administration Dry Eyes Atorvastatin Calcium 20 mg 10/23/19 21:00 10/26/19 20:57 Lipitor PO 20 mg HS KYLE Administration Calcium Carbonate 1,000 mg 10/19/19 09:50 10/20/19 09:19 Tums PO 1,000 mg Q4H PRN Administration Heartburn or Indigestion Donepezil HCl 5 mg 10/23/19 09:00 10/27/19 08:22 Aricept PO 5 mg DAILY KYLE Administration Enoxaparin Sodium 90 mg 10/26/19 21:00 10/27/19 08:22 Lovenox SC 90 mg 0900,2100 KYLE Administration Gabapentin 300 mg 10/23/19 09:00 10/27/19 08:22 Neurontin PO 300 mg DAILY KYLE Administration Hydralazine HCl 10 mg 10/14/19 17:47 10/16/19 20:18 Apresoline SLOW IVP 10 mg Q15MIN PRN Administration SBP >140 Fosphenytoin Sodium 300 mg/ 56 mls @ 112 mls/hr 10/24/19 21:00 10/26/19 20:57 Sodium Chloride IVPB 56 mls HS KYLE Administration Labetalol HCl 10 mg 10/14/19 17:46 10/25/19 07:12 Normodyne SLOW IVP 10 mg Q15MIN PRN Administration Sbp Greater Than 140 Lisinopril 5 mg 10/23/19 09:00 10/27/19 08:22 Zestril PO 5 mg DAILY KYLE Administration Sodium Chloride 10 ml 10/25/19 12:45 10/27/19 08:21 Normal Saline Pf FS 10 ml PRN PRN Administration RECONSTITUTION Tramadol HCl 50 mg 10/24/19 13:51 10/25/19 07:14 Ultram PO 50 mg Q6H PRN Administration Moderate to Severe Pain (6-10) - Exam General Appearance: NAD General - other findings: Awake Eye: PERRL ENT: normocephalic atraumatic, moist mucosa Neck: supple, symmetric, no lymphadenopathy Heart: no murmur, no gallops, no rubs Respiratory: CTAB, no wheezes, no rales, no ronchi, normal chest expansion Gastrointestinal: soft, non-tender, no guarding, no rigidity Extremities: 1+ LE edema Skin: no lesions, no rashes Neurological: cranial nerve grossly intact, no new deficit Neurological - other findings: Right sided flacid. Will follow simple commands. Tracks with eyes Musculoskeletal: generalized weakness Psychiatric: not oriented. negative: A&O x 3 Psychiatric - other findings: Garbaled speech Hosp A/P (1) Acute CVA (cerebrovascular accident) Code(s): I63.9 - CEREBRAL INFARCTION, UNSPECIFIED Status: Acute (2) DVT (deep venous thrombosis) Code(s): I82.409 - ACUTE EMBOLISM AND THOMBOS UNSP DEEP VN UNSP LOWER EXTREMITY Status: Acute (3) 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 Code(s): R90.89 - OTH ABNORMAL FINDINGS ON DIAGNOSTIC IMAGING OF CNSL Status: Acute (4) Chronic anticoagulation Code(s): Z79.01 - ASSEMBLY INSTRUCTIONS WRITER (CURRENT) USE OF ANTICOAGULANTS Status: Chronic (5) HTN (hypertension) Code(s): I10 - ESSENTIAL (PRIMARY) HYPERTENSION Status: Chronic Qualifiers: Hypertension type: essential hypertension Qualified Code(s): I10 - Essential (primary) hypertension (6) Obesity (BMI 30.0-34.9) Code(s): E66.9 - OBESITY, UNSPECIFIED Status: Chronic (7) PAF (paroxysmal atrial fibrillation) Code(s): I48.0 - PAROXYSMAL ATRIAL FIBRILLATION Status: Chronic (8) Seizure disorder Code(s): G40.909 - EPILEPSY, UNSP, NOT INTRACTABLE, WITHOUT STATUS EPILEPTICUS Status: Chronic - Plan Plan: medical unit telemetry - stroke unit neurosurgery consultation, recommendations appreciated hematology/oncology consultation, recommendations appreciated neurology consultation, recommendations appreciated S/p Left temporal lesion excisional biopsy per Dr Coronado lower extremity DVT on full dose IV anticoagulation per marina dry dock manager/ oncologist continue other home medications as able blood pressure control blood sugar control physical therapy evaluation treatment Occupational Therapy evaluation treatment G.I. prophylaxis
[2019-10-27] MEDS: Dexamethasone 3 MG in Sodium Chloride 0.9% 50 ML IVPB SCH (22:04)
[2019-10-27] MEDS: Atorvastatin Calcium 20 MG TAB PO SCH (22:12)
[2019-10-27] MEDS: traMADol HCl 50 MG TAB PO PRN (22:36)
[2019-10-28] MEDS: Dexamethasone 3 MG in Sodium Chloride 0.9% 50 ML IVPB SCH ×4 (03:01→20:29)
--- NOTE | 2019-10-28 07:20 | PDOC.HOSPP ---
- Subjective Encounter Date: 10/28/19 Encounter Time: 07:18 Subjective: receptive aphasia - Objective Vital Signs & Weight: Vital Signs (12 hours) Temp Pulse Resp BP Pulse Ox 10/28/19 03:29 97.7 F 81 18 148/86 H 97 10/27/19 23:26 98.5 F 85 13 138/78 98 10/27/19 20:00 97.5 F L 90 14 132/78 95 Weight Admit Weight 218 lb Weight 210 lb 5.136 oz Most Recent Monitor Data Heart Rate from ECG 94 NIBP 123/84 NIBP BP-Mean 97 Respiration from ECG 17 SpO2 98 I&O: 10/27/19 10/28/19 10/29/19 06:59 06:59 06:59 Intake Total 2245 Output Total 1430 1800 Balance 815 -1800 Result Diagrams: 10/25/19 05:49 10/25/19 05:49 Hospitalist ROS - Medication Medications: Active Medications Generic Name Dose Route Start Last Admin Trade Name Freq PRN Reason Stop Dose Admin Artificial Tears 2 drop 10/19/19 09:50 10/25/19 10:03 Tears Naturale EA EYE 2 drop PRN PRN Administration Dry Eyes Atorvastatin Calcium 20 mg 10/23/19 21:00 10/27/19 22:12 Lipitor PO 20 mg HS KYLE Administration Calcium Carbonate 1,000 mg 10/19/19 09:50 10/20/19 09:19 Tums PO 1,000 mg Q4H PRN Administration Heartburn or Indigestion Donepezil HCl 5 mg 10/23/19 09:00 10/27/19 08:22 Aricept PO 5 mg DAILY KYLE Administration Enoxaparin Sodium 90 mg 10/26/19 21:00 10/27/19 22:12 Lovenox SC 90 mg 0900,2100 KYLE Administration Gabapentin 300 mg 10/23/19 09:00 10/27/19 08:22 Neurontin PO 300 mg DAILY KYLE Administration Hydralazine HCl 10 mg 10/14/19 17:47 10/16/19 20:18 Apresoline SLOW IVP 10 mg Q15MIN PRN Administration SBP >140 Fosphenytoin Sodium 300 mg/ 56 mls @ 112 mls/hr 10/24/19 21:00 10/27/19 23:48 Sodium Chloride IVPB 56 mls HS KYLE Administration Dexamethasone 3 mg/ Sodium 50.75 mls @ 100 mls/hr 10/27/19 20:00 10/28/19 03: 01 Chloride IVPB 10/29/19 14:01 50.75 mls 0200,0800,1400,2000 KYEL Administration Labetalol HCl 10 mg 10/14/19 17:46 10/25/19 07:12 Normodyne SLOW IVP 10 mg Q15MIN PRN Administration Sbp Greater Than 140 Lisinopril 5 mg 10/23/19 09:00 10/27/19 08:22 Zestril PO 5 mg DAILY KYLE Administration Sodium Chloride 10 ml 10/25/19 12:45 10/27/19 08:21 Normal Saline Pf FS 10 ml PRN PRN Administration RECONSTITUTION Tramadol HCl 50 mg 10/24/19 13:51 10/27/19 22:36 Ultram PO 50 mg Q6H PRN Administration Moderate to Severe Pain (6-10) - Exam General Appearance: awake alert Neck: no JVD Heart: RRR, no murmur Respiratory: CTAB Gastrointestinal: soft, normal bowel sounds Extremities: no edema Neurological: facial droop, hemiplegia Neurological - other findings: on right Hosp A/P (1) Acute CVA (cerebrovascular accident) Code(s): I63.9 - CEREBRAL INFARCTION, UNSPECIFIED Status: Acute (2) DVT (deep venous thrombosis) Code(s): I82.409 - ACUTE EMBOLISM AND THOMBOS UNSP DEEP VN UNSP LOWER EXTREMITY Status: Acute Qualifiers: DVT location: lower extremity Affected thrombotic vein of extremity: femoral Chronicity: acute Laterality: right Qualified Code(s): I82.411 - Acute embolism and thrombosis of right femoral vein (3) 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 Code(s): R90.89 - OTH ABNORMAL FINDINGS ON DIAGNOSTIC IMAGING OF CNSL Status: Acute (4) Chronic anticoagulation Code(s): Z79.01 - CLINICAL DATA PROGRAMMER (CURRENT) USE OF ANTICOAGULANTS Status: Chronic (5) HTN (hypertension) Code(s): I10 - ESSENTIAL (PRIMARY) HYPERTENSION Status: Chronic Qualifiers: Hypertension type: essential hypertension Qualified Code(s): I10 - Essential (primary) hypertension (6) PAF (paroxysmal atrial fibrillation) Code(s): I48.0 - PAROXYSMAL ATRIAL FIBRILLATION Status: Chronic (7) Seizure disorder Code(s): G40.909 - EPILEPSY, UNSP, NOT INTRACTABLE, WITHOUT STATUS EPILEPTICUS Status: Chronic - Plan cont anticoag cont seizure meds cont iv sreroids discuss with consultants
[2019-10-28 08:20] LABS: #Basophils 0.1 thou/uL (0.0-0.2); #Eosinphils 0.1 thou/uL (0.0-0.7); #Lymphocytes 1.8 thou/uL (1.20-3.40); #Monocytes 0.8 thou/uL (0.11-0.59); #Neutrophils 5.6 thou/uL (1.40-6.50); %Basophils 0.7 % (0.0-1.0); %Eosinophils 0.8 % (0.0-10.0); %Lymphocytes 21.8 % (21.0-51.0); %Monocytes 9.5 % (0.0-10.0); %Neutrophils 67.2 % (42.0-75.0); Mean Corpuscular HGB CONC 34.7 g/dL (32.0-36.0); Mean Corpuscular Hemoglobin 31.8 pg (27.0-31.0); Mean Corpuscular Volume 91.8 fL (78.0-98.0); Mean Platelet Volume 6.9 fL (7.4-10.4); Platelet Count 250 thou/uL (130-400); RBC Distribution Width 12.3 % (11.5-14.5); Red Blood Cell (RBC) Count 4.39 mill/uL (4.70-6.10); White Blood Cell (WBC) Count 8.4 thou/uL (4.8-10.8)
[2019-10-28 08:43] LABS: Anion Gap 12 mmol/L (10-20); BUN (Urea Nitrogen) 15 mg/dL (8.4-25.7); Calc. Creatinine Clearance 131 mL/min (70-130); Calcium 9.2 mg/dL (7.8-10.44); Carbon Dioxide 24 mmol/L (23-31); Chloride 104 mmol/L (98-107); Estimated GFR-MDRD Greater than 90; Glucose 112 mg/dL (80-115); Potassium 3.7 mmol/L (3.5-5.1); Sodium 136 mmol/L (136-145)
[2019-10-28] MEDS: Lisinopril 5 MG TAB PO SCH (09:40)
[2019-10-28] MEDS: Enoxaparin Sodium 100 MG/ML SYRINGE SC SCH (09:40)
[2019-10-28] MEDS: Gabapentin 300 MG CAP PO SCH (09:40)
[2019-10-28] MEDS: Donepezil HCl 5 MG TAB PO SCH (09:41)
--- NOTE | 2019-10-28 12:17 | CT ---
CT BRAIN NONCONTRAST: Date: 10/28/2019 Time: 1049 hours HISTORY: 64-year-old male with altered mental status. Recent brain biopsy and anticoagulation therapy. Rule ou t intracranial hemorrhage. COMPARISON: 10/25/2019. FINDINGS: Again noted is the left parietal craniotomy bone flap with overlying skin lora. Deep to that, ther e is a dome-shaped 2.3 x 1.2 cm region of postsurgical change, including low density material which m ay represent surgical packing material. There has been interval decrease or resolution in the adjacen t intraparenchymal small air bubble. There has been interval increase in the volume of brain edema gore rrounding this lesion, which now measures 3.0 x 3.7 cm. This increasing edema now indents the lateral surface of the posterior aspect of the body and posterior horn of the left lateral ventricle. Interv al decrease in the now tiny amount of intraventricular hemorrhage in the occipital horn of the left l ateral ventricle. Again noted is the moderate size region of cytotoxic edema involving almost the entire left basal jose manuel glia and much of the left caudate head. This is unchanged. No new intra-axial or extra-axial hemorrhage. Tiny left frontal subdural fluid collection with mixed density may represent small subacute left frontal subdural hematoma. Minimal left to right midline sh ift of the septum pellucidum is unchanged. No obstructive hydrocephalus. IMPRESSION: 1. Interval increase in the edema surrounding the left parietal brain biopsy site, causing increase in mild local mass effect. 2. Subacute infarction involving a majority of the volume of left corpus striatum, unchanged. 3. Tiny left frontal subdural fluid collection may or may not represent a tiny subacute subdural hem atoma. 4. No acute intra-axial new hematoma. JN [] POS: OFF
--- NOTE | 2019-10-28 13:40 | PRG ---
DATE OF SERVICE: 10/28/2019 SUBJECTIVE: The patient is postop day #4 from left temporal brain biopsy. The patient denies any headache or other complaints of pain at this time. He is resting comfortably in his bed this morning upon evaluation. Over the weekend, he was found to have a right lower extremity DVT and was placed on Lovenox 90 mg b.i.d. for anticoagulation. He remains on Decadron taper and fosphenytoin. His last Dilantin level on 10/26/2019, was therapeutic at 15.5. Vital signs have remained stable overall, other than the occasional elevated systolic blood pressure. The patient's blood pressure this morning was 148/86. He has otherwise remained afebrile. PHYSICAL EXAMINATION: On exam, the patient remained stable, he is now somewhat improved likely secondary to steroids. He is awake, alert and appropriate. His dense right-sided hemiparesis persists. His dysarthria also remains, however, this has somewhat improved. He has excellent strength in his left upper and lower extremities. HEENT: Pupils are equal, round and reactive to light. He does not successfully follow with his eyes, so extraocular movements were unable to be assessed. PLAN: At this time, will be to order a CT of the brain without contrast given that the patient was fully anticoagulated over the weekend. His current pathology report reveals multifocal perivascular chronic inflammatory changes, and generally unremarkable dura findings. Pathology will likely be sent out for further assessment. We will continue to await final pathology findings. The patient will continue with physical therapy, occupational therapy and speech therapy. We will continue with Decadron taper and fosphenytoin. We will reevaluate the patient tomorrow. Call with any changes in patient's neurological status or other concerns. Job ID: [id number]
[2019-10-28 14:52] VITALS: BMI 31.0
--- NOTE | 2019-10-28 14:54 | PRG ---
DATE OF SERVICE: 10/28/2019 Mr. Arredondo is 3 days out from brain biopsy. He was found to have a DVT on his ultrasound on Monday. He had been on prophylactic Lovenox. He now on a head CT. Once he was switched to full anticoagulation as the development of a small left-sided subdural, well it is not impressive clinically and certainly could be a harbinger of things to come, as such we will stop his Lovenox completely and arrange for an IVC filter. Job ID: [id number]
--- NOTE | 2019-10-28 17:07 | PRG ---
DATE OF SERVICE: 10/28/2019 SUBJECTIVE: He opens his eyes and he establishes eye contact. He will try to answer questions. He could not recognize the name of his and he said yes and no, follow some commands. OBJECTIVE: VITAL SIGNS: He has been afebrile. Otherwise vital signs are normal. NEURO: Right-sided facial palsy, right hemiparesis. He moves his left side well. LUNGS: Clear. HEART: S1-S2 regular rate. ABDOMEN: Soft, not distended. LABORATORY DATA: White cell count 8.4, hemoglobin 14, platelets 250, creatinine 0.78, histoplasma yeast and antibody was low titer 1:4. We have submitted histoplasma antigen in the CSF serum and urine, although it is likely that this low titer level is not significant. The pathology review from [facility] is still pending. ASSESSMENT AND DISCUSSION: History of alcoholism, alcoholism in remission, paroxysmal atrial fibrillation, recurrent cerebrovascular multifocal ischemia with microhemorrhages, anterior and posterior cerebral circulation, right and left side involvement, pretty much in all the vascular territories, leptomeningeal enhancement in the pathology with perivascular infarct, chronic inflammatory changes noted. Again, differential diagnosis is an autoimmune process including amyloid angiopathy or intravascular lymphoma. Syphilis is not likely in view of the negative multiple serologies and fungal infection, mycobacterial infection unlikely in view of the lack of hypoglycorrhachia or more elevation in protein. A viral process typically not this diffuse and not with this chronicity. Job ID: [id number] [facility]
[2019-10-28] MEDS: Atorvastatin Calcium 20 MG TAB PO SCH (20:29)
--- NOTE | 2019-10-28 23:38 | CON ---
DATE OF CONSULTATION: 10/28/2019 REASON FOR CONSULTATION: Evaluate patient with DVT in contraindication to anticoagulation for an inferior vena cava filter. HISTORY OF PRESENT ILLNESS: Mr. Arredondo is a 64-year-old gentleman who unfortunately has had a stroke causing him to have right-sided paralysis. He has also been found to have a right brain lesion that he underwent biopsy of. Post biopsy, he was found to have a right-sided DVT. Due to his recent biopsy, his anticoagulation had to be stopped when he was found to have subdural blood on CT scan. I have been asked to see him to discuss removable inferior vena cava filter placement with he and his . PAST MEDICAL HISTORY: 1. Stroke. 2. Paroxysmal atrial fibrillation. 3. Hypertension. FAMILY HISTORY: History of seizures. PAST SURGICAL HISTORY: Brain biopsy. SOCIAL HISTORY: He is and accompanied by his . ALLERGIES: NONE. PHYSICAL EXAMINATION: GENERAL: He is non-conversant. VITAL SIGNS: Height 5 feet 9 inches and weight is 210 pounds, BSA is 2.1, temperature is 98.6, pulse is 80 and regular, blood pressure is 131/78. LUNGS: Clear bilaterally. HEART: Rhythm is regular. EXTREMITIES: He has no function of his right upper lower extremity currently. IMAGING: I have reviewed his ultrasound report. He has a right-sided deep venous thrombosis. ASSESSMENT/PLAN: Right-sided deep venous thrombosis with post brain biopsy bleed. I have discussed removable inferior vena cava filter with he and his . She is agreeable for us to place a filter with plans to remove within the next month. Job ID: [id number]
[2019-10-29] MEDS: Dexamethasone 3 MG in Sodium Chloride 0.9% 50 ML IVPB SCH ×3 (02:39→15:13)
--- NOTE | 2019-10-29 07:09 | PDOC.HOSPP ---
- Subjective Encounter Date: 10/29/19 Encounter Time: 07:06 Subjective: alert, responsive - Objective Vital Signs & Weight: Vital Signs (12 hours) Temp Pulse Resp BP Pulse Ox 10/29/19 04:00 98.6 F 77 20 139/90 96 10/29/19 00:00 97.8 F 86 18 141/89 H 96 10/28/19 20:34 97.9 F 96 18 113/73 97 Weight Admit Weight 218 lb Weight 210 lb 5.136 oz Most Recent Monitor Data Heart Rate from ECG 94 NIBP 123/84 NIBP BP-Mean 97 Respiration from ECG 17 SpO2 98 I&O: 10/28/19 10/29/19 10/30/19 06:59 06:59 06:59 Intake Total 150 Output Total 1800 Balance -1800 150 Result Diagrams: 10/28/19 08:13 10/28/19 08:13 Hospitalist ROS - Medication Medications: Active Medications Generic Name Dose Route Start Last Admin Trade Name Freq PRN Reason Stop Dose Admin Artificial Tears 2 drop 10/19/19 09:50 10/25/19 10:03 Tears Naturale EA EYE 2 drop PRN PRN Administration Dry Eyes Atorvastatin Calcium 20 mg 10/23/19 21:00 10/28/19 20:29 Lipitor PO 20 mg HS KYLE Administration Calcium Carbonate 1,000 mg 10/19/19 09:50 10/20/19 09:19 Tums PO 1,000 mg Q4H PRN Administration Heartburn or Indigestion Donepezil HCl 5 mg 10/23/19 09:00 10/28/19 09:41 Aricept PO 5 mg DAILY KYLE Administration Gabapentin 300 mg 10/23/19 09:00 10/28/19 09:40 Neurontin PO 300 mg DAILY KYLE Administration Hydralazine HCl 10 mg 10/14/19 17:47 10/16/19 20:18 Apresoline SLOW IVP 10 mg Q15MIN PRN Administration SBP >140 Fosphenytoin Sodium 300 mg/ 56 mls @ 112 mls/hr 10/24/19 21:00 10/28/19 21:59 Sodium Chloride IVPB 56 mls HS KYLE Administration Dexamethasone 3 mg/ Sodium 50.75 mls @ 100 mls/hr 10/27/19 20:00 10/29/19 02: 39 Chloride IVPB 01/14/20 14:01 50.75 mls 0200,0800,1400,2000 KYLE Administration Labetalol HCl 10 mg 10/14/19 17:46 10/25/19 07:12 Normodyne SLOW IVP 10 mg Q15MIN PRN Administration Sbp Greater Than 140 Lisinopril 5 mg 10/23/19 09:00 10/28/19 09:40 Zestril PO 5 mg DAILY KYLE Administration Pantoprazole Sodium 40 mg 10/28/19 09:00 10/28/19 09:41 Protonix PO 40 mg DAILY KYLE Administration Sodium Chloride 10 ml 10/25/19 12:45 10/27/19 08:21 Normal Saline Pf FS 10 ml PRN PRN Administration RECONSTITUTION Tramadol HCl 50 mg 10/24/19 13:51 10/27/19 22:36 Ultram PO 50 mg Q6H PRN Administration Moderate to Severe Pain (6-10) - Exam General Appearance: awake alert Neck: no JVD Heart: RRR, no murmur Respiratory: CTAB Gastrointestinal: soft, normal bowel sounds Extremities: no edema Neurological: facial droop, hemiplegia Neurological - other findings: on right Hosp A/P (1) Acute CVA (cerebrovascular accident) Code(s): I63.9 - CEREBRAL INFARCTION, UNSPECIFIED Status: Acute (2) DVT (deep venous thrombosis) Code(s): I82.409 - ACUTE EMBOLISM AND THOMBOS UNSP DEEP VN UNSP LOWER EXTREMITY Status: Acute Qualifiers: DVT location: lower extremity Affected thrombotic vein of extremity: femoral Chronicity: acute Laterality: right Qualified Code(s): I82.411 - Acute embolism and thrombosis of right femoral vein (3) 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 Code(s): R90.89 - OTH ABNORMAL FINDINGS ON DIAGNOSTIC IMAGING OF CNSL Status: Acute (4) Chronic anticoagulation Code(s): Z79.01 - CIRCLE EDGER (CURRENT) USE OF ANTICOAGULANTS Status: Chronic (5) HTN (hypertension) Code(s): I10 - ESSENTIAL (PRIMARY) HYPERTENSION Status: Chronic Qualifiers: Hypertension type: essential hypertension Qualified Code(s): I10 - Essential (primary) hypertension (6) PAF (paroxysmal atrial fibrillation) Code(s): I48.0 - PAROXYSMAL ATRIAL FIBRILLATION Status: Chronic (7) Seizure disorder Code(s): G40.909 - EPILEPSY, UNSP, NOT INTRACTABLE, WITHOUT STATUS EPILEPTICUS Status: Chronic - Plan cont anticoag cont seizure meds cont iv sreroids FU CT brain pending for possible SDH
--- NOTE | 2019-10-29 07:56 | CT ---
PRELIMINARY REPORT/[facility]/EMERGENCY AFTER HOURS PROCEDURE: EXAM: CT Head, without Contrast DATE/ TIME: 10/29/2019, 5:04 AM INDICATION: Postop craniotomy. Left frontal subdural hematoma, follow-up. TECHNIQUE: Axial CT imaging was performed through the head without intravenous administration of con trast. Exam was performed using one or more of the following dose reduction techniques: automated exposure control, adjustment of the mA and/or kV according to patient size, or use of iterative recon struction technique. COMPARISON: CT Head 10/28/2019, 10:50 AM. Exam of 10/25/2019 is reviewed. FINDINGS: Operative changes of left posterior parietal craniotomy are redemonstrated with underlying hypoattenuation of the brain substance within the resection cavity. Closing lora in the scalp are noted. A small amount of blood continues to layer in the left occipital horn. Evolving ischemic infarct in the left internal capsule and optic radiation is seen. Redemonstrated is suggestion of a tiny subdural fluid collection anterior to the left frontal lobe measuring up to 3 mm. The brain g lobal exhibits mild atrophy. Visualized sinuses and mastoid air cells are clear. IMPRESSION: 1. No change within the suspected tiny subdural fluid collection anterior to the left frontal lobe. This could be further evaluated with MRI due to its multiplanar capabilities and superior soft tissue imaging characteristics. 2. Postoperative changes of left posterior parietal craniotomy. 3. Evolving ischemic infarct in the left MCA distribution. 4. Atrophy. ELECTRONICALLY SIGNED BY: Case Villagomez DO Oct 29, 2019 5:52:44 AM EDITING [employer]NSH[employer] FINAL REPORT: EMERGENT AFTER HOURS NONCONTRAST HEAD CT: HISTORY: Follow-up left frontal subdural hematoma. COMPARISON: 10/28/2019. IMPRESSION: 1. Stable left parietal craniotomy bone flap with overlying skin lora. The diminished attenuation and gas density deep to the level of bone flap are overall similar to prior exam. 2. Overall stable tiny left subdural hematoma. 3. Stable area of subacute infarction involving majority of the volume of the left corpus striatum. 4. No new area of hemorrhage or additional infarction is appreciated. 5. Findings are in agreement with the preliminary report by [facility]. Transcribed Date/Time: 10/29/2019 8:01 AM
[2019-10-29] MEDS: Lisinopril 5 MG TAB PO SCH (09:31)
[2019-10-29] MEDS ORDERED: Heparin (Artline) 500 ML ONE (09:59)
--- NOTE | 2019-10-29 10:23 | PRG ---
DATE OF SERVICE: 10/29/2019 Mr. Arredondo underwent open brain biopsy at the end of last week. The pathology demonstrates multifocal perivascular chronic inflammation. We are awaiting final neuropathology. At this point, we are continuing to taper down the steroids. He was found to have deep venous thrombosis in the right leg. He is initiated on full anticoagulation. Surveillance head CT after this demonstrated development of a small subdural hematoma and as such, we stopped his anticoagulation and he has undergone temporary IVC filter placement with the hope of being able to be anticoagulated within the next one month. Head CT today is stable. At this point, really need to work on inpatient rehabilitation. Job ID: [id number]
[2019-10-29 11:23] LABS: ANA Symphony (Qualitative) Negative (Negative); ANA Symphony (Quantitative) 0.1 Ratio (< 0.7 Negative); dsDNA IgG Antibody 0.7 IU/mL (<10 Negative)
[2019-10-29] MEDS ORDERED: Iopamidol 370 76% 50 ML VIAL FS ONE (13:18)
[2019-10-29] MEDS ORDERED: Dexamethasone 1 MG TAB PO SCH (14:00)
[2019-10-29] MEDS: Gabapentin 300 MG CAP PO SCH (15:13)
[2019-10-29] MEDS: Donepezil HCl 5 MG TAB PO SCH (15:13)
--- NOTE | 2019-10-29 16:35 | OP ---
DATE OF PROCEDURE: 10/29/2019 PREOPERATIVE DIAGNOSIS: Right deep vein thrombosis with contraindication to anticoagulation, the patient has had recent brain biopsy and intracranial bleed on anticoagulation. PROCEDURES PERFORMED: 1. Inferior venacavogram. 2. Inferior vena cava filter placement, OptEase removable vena caval filter. ANESTHESIA: 1% lidocaine for local. TOTAL CONTRAST: 4 mL. TOTAL FLUORO TIME: 0.6 minutes. DESCRIPTION OF PROCEDURE: After consent was obtained from the , the patient was brought to the clinical laboratory science professor and placed in supine position on clinical laboratory science professor table. Appropriate monitoring was placed. Groins were prepped and draped in the usual sterile fashion. The left groin was accessed using ultrasound guidance. 1% lidocaine was infiltrated into the groin and percutaneous access to the common femoral vein obtained. A guidewire was passed into the upper abdominal vena cava. The cavogram sheath was passed to the level of the L1-L2 junction. The hand-injected venacavogram was performed, showing the origin of the renal veins to be at the L1-L2 junction. The cavogram sheath was removed and the filter passed with its tip at the lower border of L1. The filter was deployed, hooked down. The sheath was then removed and manual pressure held for hemostasis. The patient tolerated the procedure well and was transferred back to his room in good condition. Job ID: [id number]
[2019-10-29] MEDS: Dexamethasone 2 MG in Sodium Chloride 0.9% 50 ML IVPB SCH (21:15)
[2019-10-29] MEDS: Atorvastatin Calcium 20 MG TAB PO SCH (21:15)
[2019-10-30] MEDS: Dexamethasone 2 MG in Sodium Chloride 0.9% 50 ML IVPB SCH ×3 (02:57→15:03)
[2019-10-30] MEDS ORDERED: Loratadine 10 MG TAB PO SCH (08:45)
[2019-10-30] MEDS: Lisinopril 5 MG TAB PO SCH (09:21)
[2019-10-30] MEDS: Gabapentin 300 MG CAP PO SCH (09:21)
[2019-10-30] MEDS: Donepezil HCl 5 MG TAB PO SCH (09:21)
--- NOTE | 2019-10-30 12:41 | PRG ---
DATE OF SERVICE: 10/30/2019 Mr. Arredondo is postoperative day #5, having undergone a left temporal brain biopsy. We are still awaiting on pathology. The patient did have lower extremity DVT and was placed on full anticoagulant, but unfortunately sustained left subdural hematoma. A temporary IVC filter was placed by Dr. Acuna yesterday. We would like him to remain off any type of blood thinners at this time. Our plan will be to follow up with the patient in 2 weeks with a repeat brain MRI with and without contrast. The patient is on a Decadron taper and will have a maintenance dose of 2 mg b.i.d. He is ready for inpatient rehab at any point from neurosurgical perspective. On exam, he is still delayed and has some dysarthria. He is, however, able to correctly identify when I hold up two fingers and four fingers. He is able to answer yes or no, but is fairly unable to follow formal commands. He denies headache currently. We will arrange for staple removal roughly 14 to 17 days. After surgery if he still in [facility], they can be removed there. Otherwise, we can remove them when he is in office for his followup with brain MRI. Again, he needs to remain off any anticoagulation at this point. Please call with any changes in the patient's neurologic status. Job ID: [id number]
--- NOTE | 2019-10-30 13:02 | PDOC.HOSPP ---
- Subjective Encounter Date: 10/30/19 Encounter Time: 13:00 Subjective: no CO, doing ok - Objective Vital Signs & Weight: Vital Signs (12 hours) Temp Pulse Pulse Resp BP BP Pulse Ox 10/30/19 12:00 98 F 87 16 108/74 96 10/30/19 10:14 90 111/76 10/30/19 07:50 98 F 88 16 107/72 95 10/30/19 03:58 97.5 F L 95 16 105/70 98 Weight Admit Weight 218 lb Weight 210 lb 5.136 oz Most Recent Monitor Data Heart Rate from ECG 94 NIBP 123/84 NIBP BP-Mean 97 Respiration from ECG 17 SpO2 98 I&O: 10/29/19 10/30/19 10/31/19 06:59 06:59 06:59 Intake Total 150 360 Balance 150 360 Result Diagrams: 10/28/19 08:13 10/28/19 08:13 Hospitalist ROS - Medication Medications: Active Medications Generic Name Dose Route Start Last Admin Trade Name Freq PRN Reason Stop Dose Admin Artificial Tears 2 drop 10/19/19 09:50 10/25/19 10:03 Tears Naturale EA EYE 2 drop PRN PRN Administration Dry Eyes Atorvastatin Calcium 20 mg 10/23/19 21:00 10/29/19 21:15 Lipitor PO 20 mg HS KYLE Administration Calcium Carbonate 1,000 mg 10/19/19 09:50 10/20/19 09:19 Tums PO 1,000 mg Q4H PRN Administration Heartburn or Indigestion Donepezil HCl 5 mg 10/23/19 09:00 10/30/19 09:21 Aricept PO 5 mg DAILY KYLE Administration Gabapentin 300 mg 10/23/19 09:00 10/30/19 09:21 Neurontin PO 300 mg DAILY KYLE Administration Hydralazine HCl 10 mg 10/14/19 17:47 10/16/19 20:18 Apresoline SLOW IVP 10 mg Q15MIN PRN Administration SBP >140 Fosphenytoin Sodium 300 mg/ 56 mls @ 112 mls/hr 10/24/19 21:00 10/29/19 23:19 Sodium Chloride IVPB 56 mls HS KYLE Administration Dexamethasone 2 mg/ Sodium 50.5 mls @ 100 mls/hr 10/29/19 20:00 10/30/19 09: 21 Chloride IVPB 10/31/19 20:01 50.5 mls 0200,0800,1400,2000 KYLE Administration Labetalol HCl 10 mg 10/14/19 17:46 10/25/19 07:12 Normodyne SLOW IVP 10 mg Q15MIN PRN Administration Sbp Greater Than 140 Lisinopril 5 mg 10/23/19 09:00 10/30/19 09:21 Zestril PO 5 mg DAILY KYLE Administration Pantoprazole Sodium 40 mg 10/28/19 09:00 10/30/19 09:21 Protonix PO 40 mg DAILY KYLE Administration Sodium Chloride 10 ml 10/25/19 12:45 10/27/19 08:21 Normal Saline Pf FS 10 ml PRN PRN Administration RECONSTITUTION Tramadol HCl 50 mg 10/24/19 13:51 10/27/19 22:36 Ultram PO 50 mg Q6H PRN Administration Moderate to Severe Pain (6-10) - Exam Neck: no JVD Heart: irregular Respiratory: CTAB Gastrointestinal: soft, normal bowel sounds Extremities: no edema Neurological: facial droop, hemiplegia Neurological - other findings: right Hosp A/P (1) Acute CVA (cerebrovascular accident) Code(s): I63.9 - CEREBRAL INFARCTION, UNSPECIFIED Status: Acute (2) DVT (deep venous thrombosis) Code(s): I82.409 - ACUTE EMBOLISM AND THOMBOS UNSP DEEP VN UNSP LOWER EXTREMITY Status: Acute Qualifiers: DVT location: lower extremity Affected thrombotic vein of extremity: femoral Chronicity: acute Laterality: right Qualified Code(s): I82.411 - Acute embolism and thrombosis of right femoral vein (3) 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 Code(s): R90.89 - OTH ABNORMAL FINDINGS ON DIAGNOSTIC IMAGING OF CNSL Status: Acute (4) Chronic anticoagulation Code(s): Z79.01 - DETENTION (CURRENT) USE OF ANTICOAGULANTS Status: Chronic (5) HTN (hypertension) Code(s): I10 - ESSENTIAL (PRIMARY) HYPERTENSION Status: Chronic Qualifiers: Hypertension type: essential hypertension Qualified Code(s): I10 - Essential (primary) hypertension (6) PAF (paroxysmal atrial fibrillation) Code(s): I48.0 - PAROXYSMAL ATRIAL FIBRILLATION Status: Chronic (7) Seizure disorder Code(s): G40.909 - EPILEPSY, UNSP, NOT INTRACTABLE, WITHOUT STATUS EPILEPTICUS Status: Chronic - Plan FU CT reveals no enlargement of small SDH post IVC filter for DVT off anticoag/ASA due to small SDH awaiting rehab placemencont PT/OT
--- NOTE | 2019-10-30 15:35 | DIS ---
DATE OF ADMISSION: 10/14/2019 DATE OF DISCHARGE: 10/30/2019 PRIMARY CARE PROVIDER: Alexander Narvaez MD DISPOSITION: Discharged to inpatient rehab. FINAL DIAGNOSES: 1. Acute cerebrovascular accident with right-sided hemiplegia. 2. Deep vein thrombosis of the legs. 3. Leptomeningeal enhancement, on MRI. 4. Chronic anticoagulation. 5. Hypertension. 6. Paroxysmal atrial fibrillation. 7. Seizure disorder. 8. Subdural hematoma. CONSULTATIONS: 1. Case Nicole MD, Neurosurgery. 2. Delfino Vargas MD, Pulmonology. 3. Jatinder Irizarry MD, Neurology. 4. Sharmin Anthony NP, Oncology. 5. Roberto Carlos Rodriguez MD, Infectious Disease. PROCEDURES: On 10/14/2019, procedure in the geochemical laboratory technician per Neurosurgery. HOSPITAL COURSE: Initial laboratory; CBC was unremarkable. INR was 1.2. Comprehensive metabolic profile revealed a blood sugar of 124, otherwise normal. CT of [place] of [place] revealed thrombus in the distal 6 mm left M1 segment. Brain CT suspicious for small area of intracranial hemorrhage. Consultation from Dr. Jatinder Irizarry, since he has had some small intercerebral bleed, suggested taking him off Xarelto, which he was on for the atrial fibrillation. Echocardiogram reveals 60% to 65% EF. MRI revealed a moderate size acute infarction in the left corpus striatum. Hyperdense lesion in the left parietotemporal occipital area strongly enhancing leptomeningeal lesion. Abdomen, chest, and pelvis CT were done 10/16/2019, no evidence of any intraabdominal neoplasm. On 10/19/2019, Dr. Roberto Carlos Rodriguez evaluating CSF results. Evaluation of the CS fluid revealed no evidence of lymphoproliferative disorder. It revealed only polymorphous lymphocytes. Negative for carcinoma. Neurosurgery's comments on this date, still had a right facial droop, dense right hemiparesis. The patient has been put on steroids because of the inflammatory process, this was transiently held. An EEG done on 10/22/2019 revealed mild diffuse slowing. Followup MRI on 10/23/2019 revealed areas of enhancement and infarct, basically unchanged. On 10/23/2019, Dr. Case Nicole, cerebral angiography, right internal carotid arteries. No evidence of vasculitis. 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 There was no evidence of vasculitis. On 10/24/2019, Dr. Rancho Coronado performed a left temporal stereotactic craniotomy with biopsy. Results of the biopsy revealed chronic inflammation. Brain CT on 10/25 revealed a small amount of subdural hematoma. During this stay, the patient's neurological status stayed stable with a dense right hemiplegia, right facial droop, and some receptive in his expressive aphasia because of the small subdural hematoma, which was followed with serial CAT scans. All anticoagulation including aspirin was stopped. On 10/26/2019, a right deep vein thrombosis was discovered and on 10/29/2019, he had an inferior vena cava filter placed. Currently, he is alert, talkative, cooperating with physical therapy. His most recent laboratory on 10/28/2019, CBC is really unremarkable. On 10/28/2019, basic metabolic profile is unremarkable. His Dilantin level on 10/26/2019 was 15.5. So far, immunology and serology have proved to be on unrevealing for the source of his leptomeningeal inflammation. The patient is being transferred to inpatient rehab for continuing physical therapy, occupational therapy. Once discharged, he will need to be followed up by his PCP, Dr. Alexander Narvaez. Job ID: [id number]
[2019-10-30 15:56] VITALS: BP 101/68; TEMP 97.5
[2019-10-30] MEDS ORDERED: Budesonide 0.5 MG/2 ML NEB INH SCH (18:30)
[2019-10-31] MEDS ORDERED: Dexamethasone 1 MG TAB PO SCH (14:00)
[2019-10-31] MEDS ORDERED: Dexamethasone 1 MG in Sodium Chloride 0.9% 50 ML IVPB SCH (20:00)
[2019-10-31] MEDS ORDERED: Dexamethasone 4 mg/ml Vial SLOW IVP SCH (22:00)
[2019-11-01] MEDS ORDERED: Aspirin 81 mg Enteric Coated Tablet PO SCH (06:00)
[2019-11-02] MEDS ORDERED: Dexamethasone 20 MG/5 ML VIAL SLOW IVP SCH (21:00)
== END 2019-10-30 16:31 | DRG 23 ==
LOC: ERS 09:35 → CCU 11:52 → 2SE 10-18 14:33 → CCU 10-24 10:14 → 2SE 10-27 00:09
PROVIDERS: ADMIT Hospitalist; ATTEND Hospitalist
PROC: 009U3ZX Drainage of Spinal Canal, Percutaneous Approach, Diagnostic (ICD-10-PCS; 2019-10-17)
PROC: B31F1ZZ Fluoroscopy of Left Vertebral Artery using Low Osmolar Contrast (ICD-10-PCS; 2019-10-23)
PROC: B3181ZZ Fluoroscopy of Bilateral Internal Carotid Arteries using Low Osmolar Contrast (ICD-10-PCS; 2019-10-23)
PROC: B31R1ZZ Fluoroscopy of Intracranial Arteries using Low Osmolar Contrast (ICD-10-PCS; 2019-10-23)
PROC: 00B70ZX Excision of Cerebral Hemisphere, Open Approach, Diagnostic (ICD-10-PCS; principal; 2019-10-24)
PROC: 06H03DZ Insertion of Intraluminal Device into Inferior Vena Cava, Percutaneous Approach (ICD-10-PCS; 2019-10-29)
PROC: B5191ZZ Fluoroscopy of Inferior Vena Cava using Low Osmolar Contrast (ICD-10-PCS; 2019-10-29)
DX: I63.312 Cerebral infarction due to thrombosis of left middle cerebral artery (principal); I61.1 Nontraumatic intracerebral hemorrhage in hemisphere, cortical; G81.91 Hemiplegia, unspecified affecting right dominant side; I82.441 Acute embolism and thrombosis of right tibial vein; I82.411 Acute embolism and thrombosis of right femoral vein; R29.810 Facial weakness; I48.0 Paroxysmal atrial fibrillation; G40.909 Epilepsy, unspecified, not intractable, without status epilepticus; E66.9 Obesity, unspecified; F03.90 Unspecified dementia, unspecified severity, without behavioral disturbance, psychotic disturbance, mood disturbance, and anxiety; E03.9 Hypothyroidism, unspecified; G89.29 Other chronic pain; M54.9 Dorsalgia, unspecified; E78.5 Hyperlipidemia, unspecified; R47.81 Slurred speech; R47.01 Aphasia; I35.0 Nonrheumatic aortic (valve) stenosis; R47.1 Dysarthria and anarthria; R90.89 Other abnormal findings on diagnostic imaging of central nervous system; F10.21 Alcohol dependence, in remission; R29.704 NIHSS score 4; R40.2362 Coma scale, best motor response, obeys commands, at arrival to emergency department; R40.2142 Coma scale, eyes open, spontaneous, at arrival to emergency department; R40.2252 Coma scale, best verbal response, oriented, at arrival to emergency department; Z86.73 Personal history of transient ischemic attack (TIA), and cerebral infarction without residual deficits; Z79.01 Long term (current) use of anticoagulants; Z79.899 Other long term (current) drug therapy; Z68.32 Body mass index [BMI] 32.0-32.9, adult; Z78.1 Physical restraint status; Z28.82 Immunization not carried out because of caregiver refusal
CPT/HCPCS: 0042T; 36215; 36216; 36217; 36415; 36416; 37191; 70450; 70496; 70498; 70553; 71260; 74177; 80048; 80053; 80185; 82550; 82945; 83735; 83873; 83916; 84100; 84157; 84484; 85025; 85060; 85300; 85610; 85730; 86038; 86140; 86225; 86316; 86592; 86612; 86635; 86698; 86757; 86780; 86788; 86789; 87070; 87102; 87205; 87385; 87389; 87899; 88112; 88184; 88305; 88307; 88325; 88331; 88334; 89051; 93005; 93010; 93306; 93970; 95816; 95819; 96360; C1713; C1769; C9113; J0360; J0690; J1100; J1200; J1642; J1644; J1650; J2001; J2250; J2405; J2704; J2997; J3010; J3370; J3490; Q2009; Q9967; S0028

== ENCOUNTER 2020-01-02 12:55 | Outpatient (CLI) | payer BC ==
[2020-01-02 13:42] LABS: Estimated GFR-MDRD - POC Greater than 90
[2020-01-02] MEDS ORDERED: Magnevist 469MG/ML 20 ML VIAL ONE (14:02)
--- NOTE | 2020-01-02 14:18 | MRI ---
EXAM: MRI of the brain without and with contrast HISTORY: Cerebral arteritis COMPARISON: 10/23/2019; CT brain 11/12/2019 TECHNIQUE: Multiplanar multisequence MR images were obtained of the brain without and with IV contras t. FINDINGS: Postsurgical changes seen in the left parietal lobe. Encephalomalacia is seen in this location. High FLAIR signal is seen representing gliosis in this location. The previously seen enhancing mass in the left upper lobe has been removed. There is an area of high signal on the diffusion sequence without corresponding low signal on the ADC map in the left basal ganglia. This likely represents T2 shine through. There is high FLAIR signal in this location with an area of enhancement. This likely represents evolution of the previous basal ganglia infarction. There is also an area of high signal on the diffusion sequence without corresponding low signal on th e ADC map in the left parietal lobe adjacent to the area of encephalomalacia. This likely represents T2 shine through. There is high FLAIR signal in this location with an area of enhancement. This likely represents evolution of a remote infarction. There is a small 10 mm area of increased signal on the diffusion sequence without corresponding ADC a bnormality. This also a region of high FLAIR signal. This is new compared to the prior examination and may represent T2 shine through in an area of encephalomalacia or old infarction. No hydronephrosis. No extra-axial fluid collection or intracranial hemorrhage. The expected flow voids are present. Corpus callosum, pituitary, and craniocervical junction are within normal limits. The calvarium and overlying soft tissues are unremarkable. The paranasal sinuses and mastoid air cells are well aerated. IMPRESSION: Postsurgical changes in the left parietal lobe as above with areas of evolving abnormal signal in the basal ganglia and left parietal lobe. These areas of abnormal signal likely represent resolving remote areas of infarction.
== END 2020-01-02 12:56 | disposition home or self-care (01) ==
LOC: MRI 12:55
PROVIDERS: ATTEND Surgery
DX: I67.7 Cerebral arteritis, not elsewhere classified (principal); Z98.890 Other specified postprocedural states
CPT/HCPCS: 70553; 82565; A9579

== ENCOUNTER 2020-02-06 17:41 | Emergency (ER) | payer BC ==
[2020-02-06 18:39] LABS: #Basophils 0.1 thou/uL (0.0-0.2); #Eosinphils 0.1 thou/uL (0.0-0.7); #Lymphocytes 1.4 thou/uL (1.20-3.40); #Monocytes 0.7 thou/uL (0.11-0.59); #Neutrophils 11.5 thou/uL (1.40-6.50); %Basophils 0.9 % (0.0-1.0); %Eosinophils 0.5 % (0.0-10.0); %Lymphocytes 10.3 % (21.0-51.0); %Monocytes 4.9 % (0.0-10.0); %Neutrophils 83.4 % (42.0-75.0); Hemoglobin 14.4 g/dL (14.0-18.0); Mean Corpuscular HGB CONC 35.7 g/dL (32.0-36.0); Mean Corpuscular Hemoglobin 35.5 pg (27.0-31.0); Mean Corpuscular Volume 99.5 fL (78.0-98.0); Mean Platelet Volume 6.9 fL (7.4-10.4); Platelet Count 214 thou/uL (130-400); RBC Distribution Width 14.9 % (11.5-14.5); Red Blood Cell (RBC) Count 4.06 mill/uL (4.70-6.10); White Blood Cell (WBC) Count 13.8 thou/uL (4.8-10.8)
[2020-02-06 19:01] LABS: ALT (SGPT) 63 U/L (8-55); AST (SGOT) 17 U/L (5-34); Albumin 3.9 g/dL (3.4-4.8); Alkaline Phosphatase 96 U/L (40-110); Anion Gap 13 mmol/L (10-20); BUN (Urea Nitrogen) 17 mg/dL (8.4-25.7); Bilirubin, Total 0.7 mg/dL (0.2-1.2); CK (CPK) 14 U/L (30-200); Calc. Creatinine Clearance 0 mL/min (70-130); Calcium 9.8 mg/dL (7.8-10.44); Carbon Dioxide 28 mmol/L (23-31); Chloride 99 mmol/L (98-107); Estimated GFR-MDRD Greater than 90; Globulin 2.1 g/dL (2.4-3.5); Glucose 147 mg/dL (80-115); Lipase 33 U/L (8-78); Potassium 4.1 mmol/L (3.5-5.1); Sodium 136 mmol/L (136-145)
[2020-02-06 19:02] LABS: Acetaminophen Less than 6.0 mcg/mL (10.0-30.0); Alcohol Less than 10 mg/dL (Less than 10); Salicylate Less than 8.0 mg/dL (15.0-30.0)
[2020-02-06 20:18] LABS: Bacteria/HPF 2+ HPF (None Seen); Bilirubin Negative (Negative); Blood, Urine Negative (Negative); Clarity Clear (Clear); Glucose, Urine (Dipstick) Normal (Negative); Leukocyte 250 Leu/uL (Negative); Nitrite Negative (Negative); Protein, Urine (Dipstick) Negative (Neg-Trace); RBC/HPF 0-3 HPF (0-3); Squamous Epithelial None Seen HPF (0-3); Urobilinogen Normal mg/dL (Less than 2)
[2020-02-06 20:23] LABS: Amphetamine Not Detected (NotDetected); Barbiturates Screen Detected (NotDetected); Benzodiazepine Screen Not Detected (NotDetected); Cocaine Metabolite Screen Not Detected (NotDetected); Medtox Control Line Valid? VALID (VALID); Medtox Reader # READER 4; Methadone Not Detected (NotDetected); Methamphetamine Not Detected (NotDetected); Opiate Screen Not Detected (NotDetected); Oxycodone Screen Not Detected (NotDetected); Phencyclidine (PCP) Not Detected (NotDetected); THC/Cannabinoid Screen Not Detected (NotDetected); Tricyclic Screen Not Detected (NotDetected)
--- NOTE | 2020-02-06 20:47 | CT ---
CT OF THE BRAIN WITHOUT CONTRAST: 02/06/20 COMPARISON: 11/12/19 HISTORY: History of recent stroke. Patient is recovering. In physical therapy his face turned red and he devel oped altered mental status. TECHNIQUE: Multiple contiguous axial images were obtained in a CT of the brain without contrast. FINDINGS: There is scattered hypodensities in the subcortical and periventricular white matter, likely secondar y to small vessel ischemic disease. Encephalomalacia is seen in the left temporal lobe and left parie to-occipital region. There is no evidence of hydrocephalus, intracranial hemorrhage, or extra-axial f luid collections. No new large confluent infarction is seen. Postsurgical changes are seen in the left parietal calvarium. The visualized paranasal sinuses and ma stoid air cells are well aerated. IMPRESSION: No evidence of acute intracranial abnormality. POS: [facility]
== END 2020-02-06 21:23 | disposition home or self-care (01) ==
LOC: ERS 17:41
DX: N39.0 Urinary tract infection, site not specified (principal); R53.83 Other fatigue; E03.9 Hypothyroidism, unspecified; Z86.73 Personal history of transient ischemic attack (TIA), and cerebral infarction without residual deficits; Z79.82 Long term (current) use of aspirin; Z79.899 Other long term (current) drug therapy
CPT/HCPCS: 36415; 70450; 80053; 80306; 80307; 81003; 81015; 82550; 83690; 84443; 84484; 85025; 87077; 87086; 87186

== ENCOUNTER 2020-02-11 13:44 | Inpatient (IN) | payer BC ==
[2020-02-11] MEDS ORDERED: Cefepime 2 GM VIAL ONE (14:46)
[2020-02-11 14:47] LABS: Hemoglobin 13.7 g/dL (14.0-18.0); Mean Corpuscular HGB CONC 35.4 g/dL (32.0-36.0); Mean Corpuscular Volume 98.9 fL (78.0-98.0); Mean Platelet Volume 7.5 fL (7.4-10.4); Platelet Count 249 thou/uL (130-400); RBC Distribution Width 14.5 % (11.5-14.5); White Blood Cell (WBC) Count 19.9 thou/uL (4.8-10.8)
--- NOTE | 2020-02-11 15:02 | RAD ---
CHEST ONE VIEW: 02/11/20 INDICATION: History of swelling and right upper extremity dislocation. COMPARISON: Prior chest radiograph dated 11/02/19. FINDINGS: There are low lung volumes. There is suspicion for patchy opacity within the left lower lobe. Two vie w chest radiograph may be helpful for improved characterization. Right lung appears relatively clear except for mild right basilar atelectasis. No pneumothorax is evident. No definite acute osseous abno rmality is noted. IMPRESSION: Mild left basilar opacity. Findings may be related to subsegmental atelectasis. A repeat two view of the chest with improved inspiration is recommended. POS: [facility]
[2020-02-11 15:04] LABS: ALT (SGPT) 136 U/L (8-55); AST (SGOT) 55 U/L (5-34); Albumin 3.1 g/dL (3.4-4.8); Alkaline Phosphatase 96 U/L (40-110); Anion Gap 17 mmol/L (10-20); BUN (Urea Nitrogen) 23 mg/dL (8.4-25.7); Bilirubin, Total 0.6 mg/dL (0.2-1.2); Calc. Creatinine Clearance 0 mL/min (70-130); Carbon Dioxide 19 mmol/L (23-31); Chloride 97 mmol/L (98-107); Estimated GFR-MDRD 87; Globulin 2.8 g/dL (2.4-3.5); Glucose 217 mg/dL (80-115); Protein, Total 5.9 g/dL (5.8-8.1); Sodium 129 mmol/L (136-145)
--- NOTE | 2020-02-11 15:05 | RAD ---
RIGHT SHOULDER THREE VIEWS: 02/11/20 HISTORY: Right shoulder pain. FINDINGS: No acute fracture or dislocation is seen. POS: [facility]
[2020-02-11 15:07] LABS: Band 33 % (5-11); Lymphocytes 5 % (21-51); MDiff Complete? YES; Metamyelocyte 2 % (0-0); Monocytes 5 % (0-10); Myelocyte 1 % (0-0); Neutrophil 53 % (42-75); Reactive Lymphocytes 1 % (0-10)
[2020-02-11 15:18] LABS: CK (CPK) 19 U/L (30-200); Lipase 26 U/L (8-78)
--- NOTE | 2020-02-11 15:21 | ULT ---
Venous duplex sonogram right lower extremity HISTORY: Right leg pain and edema. History of DVT. IVC filter placement. FINDINGS: Internal echoes with lack of compressibility involve the common femoral vein and greater sa phenous junction, and the femoral vein and posterior tibial vein. Color and spectral Doppler flow seen within the common femoral vein, deep femoral vein, popliteal vein, posterior tibial vein, and pr oximal femoral vein. No flow is seen within the mid to distal portion of the femoral vein. IMPRESSION : Persistent extensive partially occlusive thrombus throughout the right lower extremity deep venous sy stem.
[2020-02-11] MEDS ORDERED: Vancomycin 1 GM/200 ML BAG ONE (15:50)
--- NOTE | 2020-02-11 16:21 | CT ---
Exam: CT angiogram of the chest HISTORY: Evaluate for pulmonary artery embolism. Past medical history of IVC filter placement for DVT . Patient is not on any anticoagulants COMPARISON: Chest CT 10/16/2019 TECHNIQUE: CT angiogram of the chest is performed in the axial plane. Three-dimensional reformatted i mages are submitted for interpretation FINDINGS: Mediastinum: No mass, lymphadenopathy or hematoma. HEART: Normal size. No significant pericardial fluid. Aorta: No aneurysm or dissection Upper solid abdominal viscera: No abnormality enhancement. Trachea and central bronchi: Patent Pleural spaces: No effusion Lung parenchyma: Nonspecific patchy groundglass opacities scattered throughout the lung parenchyma. L inear opacities in the right lower lobe likely represent subsegmental atelectasis or scar. Linear densities in left lower lobe may represent areas of atelectasis. Lung parenchymal opacification is es sentially similar to a CT from 10/16/2019 Pneumothorax: None Osseous structures: No lytic or blastic lesions Pulmonary arteries: Adequate contrast opacification pulmonary arterial system to the level of segment al arteries. No filling defect to suggest pulmonary embolism IMPRESSION: 1. No evidence of pulmonary artery embolism to the level of the segmental arteries. 2. Chronic lung parenchymal changes.
[2020-02-11 16:46] LABS: Bacteria/HPF 2+ HPF (None Seen); RBC/HPF 21-50 HPF (0-3); Squamous Epithelial 0-3 HPF (0-3); WBC/HPF 21-50 HPF (0-3)
[2020-02-11 16:50] LABS: Bilirubin Small (Negative); Blood, Urine Moderate (Negative); Clarity Clear (Clear); Glucose, Urine (Dipstick) 100 mg/dL (Negative); Leukocyte Small (Negative); Nitrite Positive (Negative); Protein, Urine (Dipstick) 100 mg/dL (Neg-Trace)
[2020-02-11 18:14] VITALS: BMI 29.2
[2020-02-11] MEDS: Sodium Chloride 0.9% 1,000 ML IV SCH (18:17)
--- NOTE | 2020-02-11 18:34 | PDOC.HHP ---
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 THe patient's noticed that his right leg was swollen last night. This morning when she saw his leg it was more blue in color and even more swollen. SHe called the PCP who advised her to come to the ER. The patient has been having difficulty ambulating on the right leg and has been having severe pain for the past few days. Patient does have a history of DVT and was not prescribed a blood thinner in the past due to a prior brain biopsy and stroke. The patient does have an IVC filter in place. He has not had fevers, chills, shortness of breath, cough. The patient did present to the ER on 02/05 with altered mental status and was diagnosed with a UTI and prescribed macrobid. Urine culture came positive for Klebsiella and he was switched to ciprofloxacin which the patient started taking last night. The patient has been urinating frequently, but has no dysuria. ED Course: The patient presented to the ER and had tachypnea with RR in 30's per ER. He had a WBC of 19.9 with bands of 33. Chest Xray showed mild left opacity. D- dimer was elevated. CTA was done which showed no PE but patchy opacities bilaterally which appear chronic. The patient was given 3L of fluid, IV vancomycin and cefepime. Hospitalist ROS - Review of Systems Constitutional: reports: fever. denies: chills Respiratory: denies: cough, dry, shortness of breath Cardiovascular: denies: chest pain, palpitations, orthopnea Gastrointestinal: denies: nausea, vomiting, abdominal pain, diarrhea Genitourinary: denies: dysuria, frequency, incontinence Musculoskeletal: denies: neck pain, shoulder pain Skin: reports: rash. denies: lesions - Medication Medications: Active Medications Generic Name Dose Route Start Last Admin Trade Name Freq PRN Reason Stop Dose Admin Sodium Chloride 1,000 mls @ 150 mls/hr 02/11/20 18:00 02/11/20 18:17 Normal Saline 0.9% IV 02/12/20 04:00 1,000 mls .[id number] [facility] Administration Hospitalist History - Past Medical History Other Medical History: Brain vasculitis DVT right leg Stroke in 2018 - Past Surgical History Other Surgical History: Vasectomy Cyst removal - Family History Other Family History: No history of autoimmune diseases in the family - Social History Smoking Status: Never smoker Alcohol: reports: None (25 yeras sober per patient's ) - Exam General Appearance: NAD, awake alert Eye: PERRL, anicteric sclera ENT: normocephalic atraumatic, no oropharyngeal lesions Neck: no JVD Heart: RRR, no murmur, no gallops, no rubs Respiratory: CTAB, no wheezes Respiratory - other findings: mild bilateral crackles Gastrointestinal: soft, non-tender, non-distended Extremities - other findings: 3+ edema on the right leg, warm and tender to palpation Skin: normal turgor Neurological: cranial nerve grossly intact, normal sensation to touch Neurological - other findings: right sided weakness. Expressive aphasia Psychiatric: oriented to person, oriented to place Hospitalist Results - Labs Result Diagrams: 02/11/20 14:18 02/11/20 14:18 Lab results: WBC 19.9 thou/uL (4.8-10.8) H 02/11/20 14:18 Hgb 13.7 g/dL (14.0-18.0) L 02/11/20 14:18 Hct 38.6 % (42.0-52.0) L 02/11/20 14:18 MCV 98.9 fL (78.0-98.0) H 02/11/20 14:18 Plt Count 249 thou/uL (130-400) 02/11/20 14:18 Band Neuts % (Manual) 33 % (5-11) H 02/11/20 14:18 Sodium 129 mmol/L (136-145) L 02/11/20 14:18 Potassium 4.0 mmol/L (3.5-5.1) 02/11/20 14:18 Chloride 97 mmol/L (98-107) L 02/11/20 14:18 Carbon Dioxide 19 mmol/L (23-31) L 02/11/20 14:18 BUN 23 mg/dL (8.4-25.7) 02/11/20 14:18 Creatinine 0.88 mg/dL (0.7-1.3) 02/11/20 14:18 Glucose 217 mg/dL (80-115) H 02/11/20 14:18 Lactic Acid 1.5 mmol/L (0.5-2.2) 02/11/20 14:18 Calcium 9.0 mg/dL (7.8-10.44) 02/11/20 14:18 Total Bilirubin 0.6 mg/dL (0.2-1.2) 02/11/20 14:18 AST 55 U/L (5-34) H 02/11/20 14:18 ALT 136 U/L (8-55) H 02/11/20 14:18 Alkaline Phosphatase 96 U/L (40-110) 02/11/20 14:18 Creatine Kinase 19 U/L (30-200) L 02/11/20 14:18 Troponin I 0.012 ng/mL (< 0.028) 02/11/20 14:18 B-Natriuretic Peptide 10.0 pg/mL (0-100) 02/11/20 14:18 Serum Total Protein 5.9 g/dL (5.8-8.1) 02/11/20 14:18 Albumin 3.1 g/dL (3.4-4.8) L 02/11/20 14:18 Lipase 26 U/L (8-78) 02/11/20 14:18 Urine Ketones 15 mg/dL (Negative) A 02/11/20 15:45 Urine Blood Moderate (Negative) A 02/11/20 15:45 Urine Nitrite Positive (Negative) A 02/11/20 15:45 Ur Leukocyte Esterase Small (Negative) H 02/11/20 15:45 Urine RBC 21-50 HPF (0-3) A 02/11/20 15:45 Urine WBC 21-50 HPF (0-3) A 02/11/20 15:45 Ur Squamous Epith Cells 0-3 HPF (0-3) 02/11/20 15:45 Urine Bacteria 2+ HPF (None Seen) A 02/11/20 15:45 Hospitalist H&P A/P - Plan Plan: This is a 64 year old male with past medical history of stroke, vasculitis, DVT s/p IVC filter who presented with right lower extremity swelling #Sepsis from RLE cellulitis - blood cultures ordered, started on IV vancomycin and cefepime. Will continue with ceftriaxone for now - flu negative #DVT RLE - noted on ultrasound today, partially occlusive - per patient supposed to have IVC filter removed few months ago, requesting Dr. Acuna to evaluate #Recent CVA #History of vasculitis - continue aspirin, statin - prednisone 40 mg po bid. Follows with rheumatology as outpatient. Biopsy last hospitalization revealed chronic inflammation #Hyponatremia - sodium 129, will continue with IV fluids #Transaminitis - LFTs elevated, will continue to trend #Macrocytic anemia - Hb 13.7. Vitamin B12 was borderline low in August. Will recheck. Check folic acid in am #Recent stroke - continue atorvastatin GI prophylaxis: protonix Code status: DNR/DNI
[2020-02-11] MEDS ORDERED: Artificial Tears 18 DROP/0.9 ML EA EYE PRN (19:04)
[2020-02-11] MEDS ORDERED: Acetaminophen 325 MG TAB PO PRN (19:04)
[2020-02-11] MEDS ORDERED: Bisacodyl 10 MG SUPP PR PRN (19:04)
[2020-02-11] MEDS ORDERED: predniSONE 20 MG TAB PO SCH (19:30)
[2020-02-11] MEDS: Melatonin 3 MG TAB PO PRN (21:55)
[2020-02-12] MEDS: Sodium Chloride 0.9% 1,000 ML IV SCH (01:48)
[2020-02-12 04:50] LABS: #Lymphocytes 0.6 thou/uL (1.20-3.40); #Monocytes 0.6 thou/uL (0.11-0.59); #Neutrophils 11.7 thou/uL (1.40-6.50); %Basophils 0.1 % (0.0-1.0); %Eosinophils 0.1 % (0.0-10.0); %Lymphocytes 4.7 % (21.0-51.0); %Monocytes 4.5 % (0.0-10.0); %Neutrophils 90.6 % (42.0-75.0); Hemoglobin 10.2 g/dL (14.0-18.0); Mean Corpuscular HGB CONC 34.7 g/dL (32.0-36.0); Mean Corpuscular Hemoglobin 35.1 pg (27.0-31.0); Platelet Count 182 thou/uL (130-400); RBC Distribution Width 14.5 % (11.5-14.5); White Blood Cell (WBC) Count 12.9 thou/uL (4.8-10.8)
[2020-02-12 05:02] LABS: Anion Gap 9 mmol/L (10-20); BUN (Urea Nitrogen) 15 mg/dL (8.4-25.7); Calc. Creatinine Clearance 144 mL/min (70-130); Calcium 7.6 mg/dL (7.8-10.44); Carbon Dioxide 22 mmol/L (23-31); Chloride 109 mmol/L (98-107); Estimated GFR-MDRD Greater than 90; Glucose 151 mg/dL (80-115); Potassium 3.3 mmol/L (3.5-5.1); Sodium 137 mmol/L (136-145)
[2020-02-12] MEDS: Aspirin 81 mg Enteric Coated Tablet PO SCH (08:32)
[2020-02-12] MEDS: Atorvastatin Calcium 20 MG TAB PO SCH (08:32)
[2020-02-12] MEDS: predniSONE 20 MG TAB PO SCH ×2 (08:32→18:22)
[2020-02-12] MEDS ORDERED: Potassium Chloride 20 MEQ TAB PO SCH (08:45)
--- NOTE | 2020-02-12 12:39 | PDOC.HOSPP ---
- Subjective Encounter Date: 02/12/20 Encounter Time: 09:00 Subjective: The patient has some pain in his leg. he is unable to communicate his needs due to aphasia. - Objective Vital Signs & Weight: Vital Signs (12 hours) Temp Pulse Resp BP Pulse Ox 02/12/20 03:24 98.2 F 101 H 18 123/83 95 Weight Weight 205 lb 4.8 oz I&O: 02/11/20 02/12/20 02/13/20 06:59 06:59 06:59 Intake Total 1750 Balance 1750 Result Diagrams: 02/12/20 04:08 02/12/20 04:08 Hospitalist ROS - Review of Systems Constitutional: denies: fever, chills - Medication Medications: Active Medications Generic Name Dose Route Start Last Admin Trade Name Freq PRN Reason Stop Dose Admin Acetaminophen 650 mg 02/11/20 19:04 02/11/20 21:55 Tylenol PO 650 mg Q6H PRN Administration Mild-Moderate Pain (1-5) Aspirin 81 mg 02/12/20 09:00 02/12/20 08:32 Ecotrin PO 81 mg DAILY KYLE Administration Atorvastatin Calcium 20 mg 02/12/20 09:00 02/12/20 08:32 Lipitor PO 20 mg DAILY KYLE Administration Melatonin 9 mg 02/11/20 19:05 02/11/20 21:55 Melatonin PO 9 mg HSPRN PRN Administration Insomnia Pantoprazole Sodium 40 mg 02/12/20 09:00 02/12/20 08:32 Protonix PO 40 mg DAILY KYLE Administration Phenytoin Sodium 300 mg 02/12/20 09:00 02/12/20 08:32 Dilantin Er PO 300 mg DAILY KYLE Administration Prednisone 40 mg 02/12/20 08:00 02/12/20 08:32 Prednisone PO 40 mg BID-WM KYLE Administration Sodium Chloride 10 ml 02/12/20 09:00 02/12/20 10:02 Flush - Normal Saline IVF 10 ml Q12HR KYLE Administration - Exam General Appearance: NAD, awake alert General - other findings: aphasic Eye: PERRL, anicteric sclera ENT: normocephalic atraumatic, no oropharyngeal lesions Neck: no JVD Heart: RRR, no murmur, no gallops, no rubs Respiratory: CTAB, no wheezes, no rales, no ronchi Gastrointestinal: soft, non-tender, non-distended, normal bowel sounds, no palpable masses Extremities: no cyanosis, no clubbing, no edema Skin: normal turgor, no lesions, no rashes Neurological - other findings: unable to lift up right arm and right leg Musculoskeletal: normal tone, normal strength, no muscle wasting Psychiatric: normal affect, normal behavior, A&O x 3, oriented to person Hosp A/P - Plan This is a 64 year old male with past medical history of stroke, vasculitis, DVT s/p IVC filter who presented with right lower extremity swelling #Sepsis from RLE cellulitis - blood cultures ordered, continue IV ceftriaxone - flu negative - WBC downtrending to 12 #Hypokalemia - potassium 3.3, s/p replacement #DVT RLE - noted on ultrasound today, partially occlusive. Started apixaban 10 mg bid today. Okay with neurosurgery - unable to remove IVC filter per Dr. Black since it has been past two weeks #Recent CVA #History of vasculitis - continue aspirin, statin - prednisone 40 mg po bid. Follows with rheumatology as outpatient. Biopsy last hospitalization revealed chronic inflammation #Hyponatremia - resolved #Transaminitis - LFTs elevated, will continue to trend #Macrocytic anemia - Hb 10 Vitamin B12 was borderline low in August. Will recheck. Check folic acid in am #Recent stroke - continue atorvastatin Code status: DNR/DNi
--- NOTE | 2020-02-12 14:24 | EKG ---
Test Reason : SEPSIS, DVT Blood Pressure : / mmHG Vent. Rate : 131 BPM Atrial Rate : 131 BPM P-R Int : 148 ms QRS Dur : 082 ms QT Int : 294 ms P-R-T Axes : 049 039 078 degrees QTc Int : 434 ms Sinus tachycardia Otherwise normal ECG Confirmed by KENYA AGGARWAL, TABBY ([id number]), dictionary editor CAMPOS MIRANDA ([id number]) on 02/12/2020 2:23:42 PM Referred By: Confirmed By:TABBY ZAMBRANO MD
[2020-02-12] MEDS: cefTRIAXone\\ROCEPHIN 1 GM in Sodium Chloride 0.9% 100 ML IVPB SCH (15:35)
--- NOTE | 2020-02-12 16:05 | CON ---
DATE OF CONSULTATION: I was asked to evaluate Mr. gorman's vena cava filter. The patient had the filter placed on October 29. This was an OptEase filter. The filter needs to be removed before November 29 to have it removed. Since it is stayed in place for over 3 months and needs to be considered a permanent filter at this point. The patient has continued edema, which he will need a compression stocking for and anticoagulation for his DVT since he is far enough out from his brain hemorrhage to be anticoagulated. Job ID: [id number]
[2020-02-12] MEDS: Apixaban 5 MG TAB PO SCH (20:49)
[2020-02-12] MEDS: Melatonin 3 MG TAB PO PRN (22:57)
[2020-02-13 04:40] LABS: Hemoglobin 11.5 g/dL (14.0-18.0); Mean Corpuscular HGB CONC 33.4 g/dL (32.0-36.0); Mean Corpuscular Hemoglobin 33.7 pg (27.0-31.0); Mean Platelet Volume 7.1 fL (7.4-10.4); Platelet Count 226 thou/uL (130-400); RBC Distribution Width 14.5 % (11.5-14.5); White Blood Cell (WBC) Count 13.2 thou/uL (4.8-10.8)
[2020-02-13 05:05] LABS: Anion Gap 13 mmol/L (10-20); BUN (Urea Nitrogen) 12 mg/dL (8.4-25.7); Calc. Creatinine Clearance 140 mL/min (70-130); Calcium 8.9 mg/dL (7.8-10.44); Carbon Dioxide 19 mmol/L (23-31); Chloride 104 mmol/L (98-107); Estimated GFR-MDRD Greater than 90; Glucose 110 mg/dL (80-115); Potassium 4.1 mmol/L (3.5-5.1); Sodium 132 mmol/L (136-145)
[2020-02-13] MEDS: Apixaban 5 MG TAB PO SCH ×2 (09:18→20:03)
[2020-02-13] MEDS: Aspirin 81 mg Enteric Coated Tablet PO SCH (09:18)
[2020-02-13] MEDS: predniSONE 20 MG TAB PO SCH ×2 (09:18→16:29)
[2020-02-13] MEDS: Atorvastatin Calcium 20 MG TAB PO SCH (09:18)
[2020-02-13] MEDS: traMADol HCl 50 MG TAB PO PRN ×2 (12:04→20:03)
--- NOTE | 2020-02-13 12:30 | PDOC.HOSPP ---
- Subjective Encounter Date: 02/13/20 Encounter Time: 09:00 Subjective: The patient is aphasic, no complaints today. Right leg still swollen - Objective Vital Signs & Weight: Vital Signs (12 hours) Temp Pulse Pulse Pulse Resp BP BP 02/13/20 09:55 56 L 56 L 111/64 110/72 02/13/20 07:05 98.4 F 101 H 18 02/13/20 04:00 98.7 F 88 18 BP Pulse Ox 02/13/20 09:55 02/13/20 07:05 106/67 98 02/13/20 04:00 115/65 95 Weight Weight 199 lb 11.2 oz I&O: 02/12/20 02/13/20 02/14/20 06:59 06:59 06:59 Intake Total 1750 420 Balance 1750 420 Result Diagrams: 02/13/20 04:07 02/13/20 04:07 Hospitalist ROS - Review of Systems Constitutional: denies: fever, chills - Medication Medications: Active Medications Generic Name Dose Route Start Last Admin Trade Name Freq PRN Reason Stop Dose Admin Acetaminophen 650 mg 02/11/20 19:04 02/11/20 21:55 Tylenol PO 650 mg Q6H PRN Administration Mild-Moderate Pain (1-5) Apixaban 10 mg 02/12/20 21:00 02/13/20 09:18 Eliquis PO 10 mg BID KYLE Administration Aspirin 81 mg 02/12/20 09:00 02/13/20 09:18 Ecotrin PO 81 mg DAILY KYLE Administration Atorvastatin Calcium 20 mg 02/12/20 09:00 02/13/20 09:18 Lipitor PO 20 mg DAILY KYLE Administration Ceftriaxone Sodium 1 gm/ 100 mls @ 200 mls/hr 02/12/20 14:00 02/12/20 15:35 Sodium Chloride IVPB 100 mls Q24HR KYLE Administration Melatonin 9 mg 02/11/20 19:05 02/12/20 22:57 Melatonin PO 9 mg HSPRN PRN Administration Insomnia Pantoprazole Sodium 40 mg 02/12/20 09:00 02/13/20 09:18 Protonix PO 40 mg DAILY KYLE Administration Phenytoin Sodium 300 mg 02/12/20 09:00 02/13/20 09:18 Dilantin Er PO 300 mg DAILY KYLE Administration Prednisone 40 mg 02/12/20 08:00 02/13/20 09:18 Prednisone PO 40 mg BID-WM KYLE Administration Sodium Chloride 10 ml 02/12/20 09:00 02/13/20 09:19 Flush - Normal Saline IVF 10 ml Q12HR KYLE Administration - Exam General Appearance: NAD, awake alert Eye: PERRL, anicteric sclera ENT: normocephalic atraumatic, no oropharyngeal lesions Neck: no JVD Heart: RRR, no murmur, no gallops, no rubs Respiratory: CTAB, no wheezes, no rales, no ronchi Gastrointestinal: soft, non-tender, non-distended, normal bowel sounds Extremities: 2+ LE edema Extremities - other findings: erythema in the right leg with some warmth and tenderness to palpation, imp Skin: normal turgor, no lesions, no rashes Neurological: cranial nerve grossly intact, normal sensation to touch, no weakness Hosp A/P - Plan This is a 64 year old male with past medical history of stroke, vasculitis, DVT s/p IVC filter who presented with right lower extremity swelling #Sepsis from RLE cellulitis - blood cultures ordered, continue IV ceftriaxone - flu negative - WBC around the same today - keep leg elevated to reduce swelling #Hyponatremia -sodium 132, will monitor #DVT RLE - noted on ultrasound , partially occlusive. Started apixaban 10 mg bid. COntinue for 7 days, then do 5 mg bid Okay with neurosurgery - unable to remove IVC filter per Dr. Black since it has been past two weeks #Hypokalemia- resolved #Recent CVA #History of vasculitis - continue aspirin, statin - prednisone 40 mg po bid. Follows with rheumatology as outpatient. Biopsy last hospitalization revealed chronic inflammation #Hyponatremia - resolved #Transaminitis - LFTs elevated, will continue to trend #Macrocytic anemia - Hb 11.5. B12/ and folate level normal #Recent stroke - continue atorvastatin Dispo: monitor on IV antibiotics for one more day, possibly d/c in am Code status: DNR/DNi
[2020-02-13] MEDS: cefTRIAXone\\ROCEPHIN 1 GM in Sodium Chloride 0.9% 100 ML IVPB SCH (15:25)
[2020-02-13] MEDS: Melatonin 3 MG TAB PO PRN (20:02)
--- NOTE | 2020-02-14 07:48 | CT ---
PRELIMINARY REPORT/[facility]/EMERGENCY AFTER HOURS PROCEDURE PROCEDURE: CT Head without Contrast . HISTORY: Fall and trauma. TECHNIQUE: Axial images were performed without the administration of IV contrast with or without mult iplanar reformations . COMPARISON: 02/06/2020. FINDINGS: Brain shows no mass, hemorrhage, or acute stroke. Encephalomalacia involving LEFT parietal and temporal lobe from previous stroke. Some encephalomalacia LEFT periventricular basal ganglia reg ion from previous stroke. Mild periventricular old microischemic changes. Mild diffuse cerebral and cerebellar atrophy. Ventricles are normal size for patient's age. Some enlargement of the LEFT later al ventricle related to adjacent encephalomalacia. No acute skull or scalp abnormality. Old lisa hol e posteriorly on the LEFT. Clear visualized sinuses and mastoids. IMPRESSION: No acute intracranial abnormality. Senescent changes. Old LEFT posterior lisa hole. ELECTRONICALLY SIGNED BY: Mike Cuellar MD February 14, 2020 4:42:21 AM CDT FINAL REPORT EMERGENT AFTER HOURS CT OF THE BRAIN WITHOUT CONTRAST: COMPARISON: 02/06/2020. FINDINGS/IMPRESSION: I agree with the findings and impression given in the preliminary report per [facility] physici an. No evidence of acute intracranial abnormality. POS: MARTHA
[2020-02-14 09:09] LABS: Hemoglobin 11.1 g/dL (14.0-18.0); Mean Corpuscular HGB CONC 33.6 g/dL (32.0-36.0); Mean Corpuscular Hemoglobin 33.3 pg (27.0-31.0); Mean Corpuscular Volume 99.1 fL (78.0-98.0); Mean Platelet Volume 6.6 fL (7.4-10.4); Platelet Count 257 thou/uL (130-400); RBC Distribution Width 14.5 % (11.5-14.5); Red Blood Cell (RBC) Count 3.33 mill/uL (4.70-6.10); White Blood Cell (WBC) Count 12.6 thou/uL (4.8-10.8)
[2020-02-14 09:22] LABS: ALT (SGPT) 176 U/L (8-55); AST (SGOT) 60 U/L (5-34); Albumin 2.7 g/dL (3.4-4.8); Alkaline Phosphatase 73 U/L (40-110); Anion Gap 15 mmol/L (10-20); BUN (Urea Nitrogen) 13 mg/dL (8.4-25.7); Bilirubin, Total 0.5 mg/dL (0.2-1.2); Calc. Creatinine Clearance 146 mL/min (70-130); Calcium 8.9 mg/dL (7.8-10.44); Carbon Dioxide 22 mmol/L (23-31); Chloride 102 mmol/L (98-107); Estimated GFR-MDRD Greater than 90; Globulin 2.4 g/dL (2.4-3.5); Glucose 91 mg/dL (80-115); Potassium 3.5 mmol/L (3.5-5.1); Protein, Total 5.1 g/dL (5.8-8.1); Sodium 135 mmol/L (136-145)
[2020-02-14] MEDS: Atorvastatin Calcium 20 MG TAB PO SCH (09:41)
[2020-02-14] MEDS: Apixaban 5 MG TAB PO SCH ×2 (09:41→20:00)
[2020-02-14] MEDS: predniSONE 20 MG TAB PO SCH ×2 (09:42→17:15)
[2020-02-14] MEDS: Aspirin 81 mg Enteric Coated Tablet PO SCH (09:43)
[2020-02-14] MEDS: traMADol HCl 50 MG TAB PO PRN (09:47)
--- NOTE | 2020-02-14 10:58 | RAD ---
Exam:Right tibia fibula 2 view HISTORY: Pain. Swelling. COMPARISON: None FINDINGS: No fracture, cortical irregularity or periosteal reaction. IMPRESSION: No fracture.
--- NOTE | 2020-02-14 11:00 | RAD ---
Exam:Right elbow 2 views HISTORY: Fall. Pain. COMPARISON: None FINDINGS: Preserved joint space. No joint effusion. No fracture, malalignment or cortical irregularit y. IMPRESSION: No fracture. If there is pain or point tenderness, consider immobilization and follow-up imaging in 7-10 days
[2020-02-14] MEDS: cefTRIAXone\\ROCEPHIN 1 GM in Sodium Chloride 0.9% 100 ML IVPB SCH (14:00)
--- NOTE | 2020-02-14 14:06 | RAD ---
RIGHT KNEE: 02/14/20 Four views. HISTORY: Knee pain. Fall. Degenerative changes. There is narrowing of the medial joint space with prominent marginal osteophyte s at the medial joint. Prominent degenerative change at the patellofemoral joint. No fracture. No angelo nt effusion. IMPRESSION: Moderate degenerative changes as described. No evidence of acute fracture. POS: AGW
--- NOTE | 2020-02-14 17:09 | PDOC.HOSPP ---
- Subjective Encounter Date: 02/14/20 Encounter Time: 17:10 Subjective: The patient had a fall this morning .Per nursing staff he got out of bed and fell on his right side, but did not hit his head. Patient was noted to be holding his right elbow. Per , patient is more alert today compared to yesterday Patient's would like to see if he can transfer to a chair so she can get a better idea of taking him home - Objective Vital Signs & Weight: Vital Signs (12 hours) Temp Pulse Pulse Resp BP BP Pulse Ox 02/14/20 13:30 105 H 122/80 02/14/20 09:32 98.0 F 101 H 16 121/84 94 L Weight Weight 202 lb 4.8 oz I&O: 02/13/20 02/14/20 02/15/20 06:59 06:59 06:59 Intake Total 420 830 Balance 420 830 Result Diagrams: 02/14/20 08:56 02/14/20 08:56 Hospitalist ROS - Review of Systems Constitutional: denies: fever, chills - Medication Medications: Active Medications Generic Name Dose Route Start Last Admin Trade Name Freq PRN Reason Stop Dose Admin Acetaminophen 650 mg 02/11/20 19:04 02/11/20 21:55 Tylenol PO 650 mg Q6H PRN Administration Mild-Moderate Pain (1-5) Apixaban 10 mg 02/12/20 21:00 02/14/20 09:41 Eliquis PO 10 mg BID KYLE Administration Aspirin 81 mg 02/12/20 09:00 02/14/20 09:43 Ecotrin PO 81 mg DAILY KYLE Administration Atorvastatin Calcium 20 mg 02/12/20 09:00 02/14/20 09:41 Lipitor PO 20 mg DAILY KYLE Administration Ceftriaxone Sodium 1 gm/ 100 mls @ 200 mls/hr 02/12/20 14:00 02/14/20 14:00 Sodium Chloride IVPB 100 mls Q24HR KYLE Administration Melatonin 9 mg 02/11/20 19:05 02/13/20 20:02 Melatonin PO 9 mg HSPRN PRN Administration Insomnia Pantoprazole Sodium 40 mg 02/12/20 09:00 02/14/20 09:42 Protonix PO 40 mg DAILY KYLE Administration Phenytoin Sodium 300 mg 02/12/20 09:00 05/01/20 09:42 Dilantin Er PO 300 mg DAILY KYLE Administration Prednisone 40 mg 02/12/20 08:00 02/14/20 09:42 Prednisone PO 40 mg BID-WM KYLE Administration Sodium Chloride 10 ml 02/12/20 09:00 02/14/20 09:43 Flush - Normal Saline IVF 10 ml Q12HR KYLE Administration Tramadol HCl 50 mg 02/11/20 19:04 02/14/20 09:47 Ultram PO 50 mg Q6H PRN Administration Moderate to Severe Pain (6-10) - Exam General Appearance: NAD, awake alert General - other findings: aphasic Eye: PERRL, anicteric sclera ENT: normocephalic atraumatic, no oropharyngeal lesions Neck: no JVD Heart: RRR, no murmur, no gallops, no rubs Respiratory: CTAB, no wheezes, no rales, no ronchi Gastrointestinal: soft, non-tender, non-distended, normal bowel sounds Extremities: no cyanosis, no clubbing Skin: normal turgor, no lesions Skin - other findings: bruising on right knee Neurological: cranial nerve grossly intact, normal sensation to touch, no new deficit, speech deficit Neurological - other findings: right sided deficit Musculoskeletal: normal tone, normal strength, no muscle wasting Musculoskeletal - other findings: right elbow and knee tenderness. Psychiatric: normal affect, normal behavior, A&O x 3, oriented to person Hosp A/P - Plan This is a 64 year old male with past medical history of stroke, vasculitis, DVT s/p IVC filter who presented with right lower extremity swelling #Sepsis from RLE cellulitis - blood cultures negative, continue IV ceftriaxone day 3. LIkely can switch to oral tomorrow - flu negative - WBC improved today #S/p fall - continue PT #Recent CVA #History of vasculitis - continue aspirin, statin - prednisone 40 mg po bid. Follows with rheumatology as outpatient. Biopsy last hospitalization revealed chronic inflammation #Hyponatremia - improved to 135 #DVT RLE - noted on ultrasound , partially occlusive. Started apixaban 10 mg bid. COntinue for 7 days, then do 5 mg bid Okay with neurosurgery - unable to remove IVC filter per Dr. Black since it has been past two weeks #Hypokalemia- resolved #Hyponatremia - resolved #Transaminitis - LFTs elevated, will continue to trend #Macrocytic anemia - Hb 11.5. B12/ and folate level normal #Recent stroke - continue atorvastatin Dispo: monitor on IV antibiotics for one more day, possibly d/c in am Code status: DNR/DNi
[2020-02-14] MEDS: Melatonin 3 MG TAB PO PRN (20:01)
[2020-02-15 04:41] LABS: Hemoglobin 10.6 g/dL (14.0-18.0); Mean Corpuscular HGB CONC 35.6 g/dL (32.0-36.0); Mean Corpuscular Hemoglobin 35.6 pg (27.0-31.0); Mean Platelet Volume 6.5 fL (7.4-10.4); Platelet Count 283 thou/uL (130-400); RBC Distribution Width 14.4 % (11.5-14.5); Red Blood Cell (RBC) Count 2.98 mill/uL (4.70-6.10); White Blood Cell (WBC) Count 13.4 thou/uL (4.8-10.8)
[2020-02-15 05:07] LABS: ALT (SGPT) 200 U/L (8-55); AST (SGOT) 73 U/L (5-34); Albumin 2.6 g/dL (3.4-4.8); Alkaline Phosphatase 72 U/L (40-110); Bilirubin, Direct 0.2 mg/dL (0.1-0.3); Bilirubin, Total 0.4 mg/dL (0.2-1.2); Protein, Total 4.9 g/dL (5.8-8.1)
[2020-02-15] MEDS: predniSONE 20 MG TAB PO SCH ×2 (08:31→17:28)
[2020-02-15] MEDS: Apixaban 5 MG TAB PO SCH ×2 (08:31→20:42)
[2020-02-15] MEDS: Aspirin 81 mg Enteric Coated Tablet PO SCH (08:32)
[2020-02-15] MEDS: Atorvastatin Calcium 20 MG TAB PO SCH (08:32)
[2020-02-15] MEDS: Cyanocobalamin (Vitamin B-12) 1,000 MCG TAB PO SCH (08:32)
--- NOTE | 2020-02-15 10:08 | PDOC.HOSPP ---
- Subjective Encounter Date: 02/15/20 Encounter Time: 08:00 non-verbal Subjective: Patient seen and examined for Sepsis. No new complaints. No overnight events - Objective Vital Signs & Weight: Vital Signs (12 hours) Temp Pulse Resp BP Pulse Ox 02/15/20 07:10 97.4 F L 90 16 120/80 95 02/15/20 03:04 98.6 F 90 20 102/70 96 Weight Weight 200 lb 3.2 oz I&O: 02/14/20 02/15/20 02/16/20 06:59 06:59 06:59 Intake Total 830 300 Balance 830 300 Result Diagrams: 02/15/20 04:19 02/14/20 08:56 EKG Reviewed by me: Yes (Tele SR) Hospitalist ROS - Review of Systems ROS unobtainable: due to mental status - Medication Medications: Active Medications Generic Name Dose Route Start Last Admin Trade Name Freq PRN Reason Stop Dose Admin Acetaminophen 650 mg 02/11/20 19:04 02/11/20 21:55 Tylenol PO 650 mg Q6H PRN Administration Mild-Moderate Pain (1-5) Apixaban 10 mg 02/12/20 21:00 02/15/20 08:31 Eliquis PO 10 mg BID KYLE Administration Aspirin 81 mg 02/12/20 09:00 02/15/20 08:32 Ecotrin PO 81 mg DAILY KYLE Administration Atorvastatin Calcium 20 mg 02/12/20 09:00 02/15/20 08:32 Lipitor PO 20 mg DAILY KYLE Administration Cyanocobalamin 1,000 mcg 02/15/20 09:00 02/15/20 08:32 Vitamin B-12 PO 1,000 mcg DAILY KYLE Administration Ceftriaxone Sodium 1 gm/ 100 mls @ 200 mls/hr 02/12/20 14:00 02/14/20 14:00 Sodium Chloride IVPB 100 mls Q24HR KYLE Administration Melatonin 9 mg 02/11/20 19:05 02/14/20 20:01 Melatonin PO 9 mg HSPRN PRN Administration Insomnia Pantoprazole Sodium 40 mg 02/12/20 09:00 02/15/20 08:32 Protonix PO 40 mg DAILY KYLE Administration Phenytoin Sodium 300 mg 02/12/20 09:00 02/15/20 08:31 Dilantin Er PO 300 mg DAILY KYLE Administration Prednisone 40 mg 02/12/20 08:00 02/15/20 08:31 Prednisone PO 40 mg BID-WM KYLE Administration Sodium Chloride 10 ml 02/12/20 09:00 02/15/20 08:32 Flush - Normal Saline IVF 10 ml Q12HR KYLE Administration Tramadol HCl 50 mg 02/11/20 19:04 02/14/20 09:47 Ultram PO 50 mg Q6H PRN Administration Moderate to Severe Pain (6-10) - Exam General Appearance: NAD Heart: RRR, no gallops Respiratory: no wheezes, no ronchi Gastrointestinal: non-tender, non-distended, no guarding, no rigidity Extremities: no cyanosis, 2+ LE edema (RLE) Neurological: no new deficit Hosp A/P - Plan Sepsis due to RLE Cellulitis Recent UTI - POA Recurrent fall DJD h/o DVT s/p IVC filtre Seizure disorder h/o CVA due to Vasculitis/Aphasia Hyponatremia PLAN: On Anticoag - Dr Chaudhry confirmed with Neurosurgery - Will reduce dose to 5 mg BID due to high risk of bleeding. DC ASA Cont Ceftriaxone Check postvoid residual Change Atbx to PO later today DC in 24 hr if stable Cont other meds as above
[2020-02-15] MEDS: cefTRIAXone\\ROCEPHIN 1 GM in Sodium Chloride 0.9% 100 ML IVPB SCH (13:33)
[2020-02-15 14:42] LABS: Hemoglobin 11.5 g/dL (14.0-18.0); Platelet Count 317 thou/uL (130-400)
[2020-02-15] MEDS: Melatonin 3 MG TAB PO PRN (20:43)
[2020-02-15] MEDS: Cefdinir 300 MG CAP PO SCH (20:43)
[2020-02-16 04:56] LABS: ALT (SGPT) 240 U/L (8-55); AST (SGOT) 84 U/L (5-34); Albumin 2.8 g/dL (3.4-4.8); Alkaline Phosphatase 84 U/L (40-110); Anion Gap 12 mmol/L (10-20); BUN (Urea Nitrogen) 13 mg/dL (8.4-25.7); Bilirubin, Total 0.5 mg/dL (0.2-1.2); Calc. Creatinine Clearance 135 mL/min (70-130); Calcium 8.5 mg/dL (7.8-10.44); Carbon Dioxide 24 mmol/L (23-31); Chloride 103 mmol/L (98-107); Estimated GFR-MDRD Greater than 90; Globulin 2.6 g/dL (2.4-3.5); Glucose 99 mg/dL (80-115); Magnesium 1.8 mg/dL (1.6-2.6); Potassium 3.6 mmol/L (3.5-5.1); Protein, Total 5.4 g/dL (5.8-8.1); Sodium 135 mmol/L (136-145)
[2020-02-16 05:16] LABS: Band 6 % (5-11); Hemoglobin 11.1 g/dL (14.0-18.0); Lymphocytes 19 % (21-51); MDiff Complete? YES; Mean Corpuscular HGB CONC 34.6 g/dL (32.0-36.0); Mean Corpuscular Hemoglobin 34.1 pg (27.0-31.0); Mean Corpuscular Volume 98.8 fL (78.0-98.0); Mean Platelet Volume 6.2 fL (7.4-10.4); Metamyelocyte 2 % (0-0); Monocytes 1 % (0-10); Myelocyte 2 % (0-0); Neutrophil 70 % (42-75); Nucleated RBC 1 % (0); Platelet Count 354 thou/uL (130-400); Platelet Morphology Comment Appears Adequate; RBC Distribution Width 14.2 % (11.5-14.5); Red Blood Cell (RBC) Count 3.24 mill/uL (4.70-6.10); White Blood Cell (WBC) Count 14.3 thou/uL (4.8-10.8)
[2020-02-16] MEDS: predniSONE 20 MG TAB PO SCH (09:15)
[2020-02-16] MEDS: Cefdinir 300 MG CAP PO SCH (09:16)
[2020-02-16] MEDS: Apixaban 5 MG TAB PO SCH (09:16)
[2020-02-16] MEDS: Atorvastatin Calcium 20 MG TAB PO SCH (09:16)
[2020-02-16] MEDS: Cyanocobalamin (Vitamin B-12) 1,000 MCG TAB PO SCH (09:16)
[2020-02-16 12:29] VITALS: BP 124/85; TEMP 97.6
--- NOTE | 2020-02-16 18:15 | DIS ---
DATE OF ADMISSION: 02/11/2020 DATE OF DISCHARGE: 02/16/2020 DISCHARGE DISPOSITION: Home. FOLLOWUP: 1. Follow up with primary care physician, Dr. Narvaez in 3 days. 2. [facility] has been arranged. 3. Follow up with Neurology and Neurosurgery as scheduled. ALLERGIES: NO KNOWN DRUG ALLERGIES. DISCHARGE MEDICATIONS: Eliquis 5 mg b.i.d. and Omnicef 300 mg b.i.d. for next 3 days. All other home medications were left unchanged. Aspirin was discontinued. The patient was seen and examined on the day of discharge. Denies any new complaints. 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 Please refer to the history and physical by Dr. Chaudhry for further details. The patient was admitted to the hospital with a diagnosis of sepsis due to right lower extremity cellulitis. He was started on IV antibiotics. Right lower extremity Doppler was consistent with persistent extensive partially occlusive thrombus throughout the right lower extremity deep venous system. CT angiogram of the chest was negative for pulmonary embolism. The patient was evaluated by cardiovascular, Dr. Acuna. His IVC filter will be considered as a permanent filter per Dr. Acuna since it stayed in place for over three months. He was started on anticoagulation. Dr. Chaudhry confirmed with Neurosurgery prior to initiation of anticoagulants. The patient and the family understand the risk associated with anticoagulation. He also was diagnosed with recent UTI secondary to Klebsiella pneumonia. The patient has remained afebrile over the last 48 hours. He appears stable for discharge. His blood culture remained negative. The patient continues to have leukocytosis. However, there is no left shift at this time. The leukocytosis could be due to chronic prednisone therapy. Statins were discontinued due to persistent elevated LFTs. Primary care physician advised to follow. FINAL DIAGNOSES: 1. Sepsis due to right lower extremity cellulitis. 2. Recent Klebsiella urinary tract infection, present on admission. 3. Recurrent fall. 4. Degenerative joint disease. 5. History of deep vein thrombosis, status post IVC filter. 6. 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 7. Hyponatremia. 8. Abnormal LFTs. 9. Metabolic acidosis. 10. Chronic anemia suspected due to nutritional deficiency. 11. The patient and the family understand the above plan of care. Job ID: [id number]
== END 2020-02-16 15:22 | disposition home health service (06) | DRG 872 ==
LOC: ERS 13:44 → 2NO 16:21
PROVIDERS: ADMIT Internal Medicine; ATTEND Internal Medicine
DX: A41.9 Sepsis, unspecified organism (principal); L03.115 Cellulitis of right lower limb; E87.1 Hypo-osmolality and hyponatremia; E87.2 Acidosis; R94.5 Abnormal results of liver function studies; D53.8 Other specified nutritional anemias; I77.6 Arteritis, unspecified; B96.1 Klebsiella pneumoniae [K. pneumoniae] as the cause of diseases classified elsewhere; R29.6 Repeated falls; G89.29 Other chronic pain; F32.9 Major depressive disorder, single episode, unspecified; G47.00 Insomnia, unspecified; E87.6 Hypokalemia; G40.909 Epilepsy, unspecified, not intractable, without status epilepticus; M19.90 Unspecified osteoarthritis, unspecified site; Z79.01 Long term (current) use of anticoagulants; Z87.440 Personal history of urinary (tract) infections; Z86.718 Personal history of other venous thrombosis and embolism; I69.320 Aphasia following cerebral infarction
CPT/HCPCS: 36415; 70450; 71045; 71275; 80048; 80053; 80076; 81003; 81015; 82550; 82607; 82746; 83605; 83690; 83735; 83880; 84484; 85025; 85027; 85379; 87040; 87804; 93005; 96365; 96367; J0692; J0696; J3370; J3490; J7512

== ENCOUNTER 2020-08-13 20:05 | Inpatient (IN) | payer BC, OTHER ==
[2020-08-13 20:42] LABS: #Eosinphils 0.1 thou/uL (0.0-0.7); #Lymphocytes 0.2 thou/uL (1.20-3.40); #Monocytes 0.1 thou/uL (0.11-0.59); #Neutrophils 4.4 thou/uL (1.40-6.50); %Basophils 0.5 % (0.0-1.0); %Eosinophils 2.7 % (0.0-10.0); %Monocytes 2.8 % (0.0-10.0); Hemoglobin 12.2 g/dL (14.0-18.0); Mean Corpuscular HGB CONC 36.4 g/dL (32.0-36.0); Mean Corpuscular Hemoglobin 38.8 pg (27.0-31.0); Mean Platelet Volume 6.4 fL (7.4-10.4); Platelet Count 228 thou/uL (130-400); RBC Distribution Width 14.5 % (11.5-14.5); Red Blood Cell (RBC) Count 3.14 mill/uL (4.70-6.10); White Blood Cell (WBC) Count 4.9 thou/uL (4.8-10.8)
[2020-08-13 20:48] LABS: INR-International Normal Ratio 1.8; PTT 31.9 sec (22.9-36.1)
[2020-08-13 21:04] LABS: Acetaminophen Less than 6.0 mcg/mL (10.0-30.0); Alcohol Less than 10 mg/dL (Less than 10); CK (CPK) 34 U/L (30-200); Salicylate Less than 8.0 mg/dL (15.0-30.0)
[2020-08-13 21:10] LABS: ALT (SGPT) 38 U/L (8-55); AST (SGOT) 23 U/L (5-34); Alkaline Phosphatase 70 U/L (40-110); Anion Gap 18 mmol/L (10-20); BUN (Urea Nitrogen) 18 mg/dL (8.4-25.7); Bilirubin, Total 0.4 mg/dL (0.2-1.2); Calc. Creatinine Clearance 0 mL/min (70-130); Calcium 9.5 mg/dL (7.8-10.44); Carbon Dioxide 20 mmol/L (23-31); Chloride 103 mmol/L (98-107); Estimated GFR-MDRD 71; Globulin 1.7 g/dL (2.4-3.5); Glucose 146 mg/dL (80-115); Lipase 26 U/L (8-78); Magnesium 1.9 mg/dL (1.6-2.6); Potassium 4.6 mmol/L (3.5-5.1); Protein, Total 5.7 g/dL (5.8-8.1); Sodium 136 mmol/L (136-145)
[2020-08-13 22:00] LABS: Bacteria/HPF None Seen HPF (None Seen); Bilirubin Negative (Negative); Blood, Urine Negative (Negative); Clarity Turbid (Clear); Glucose, Urine (Dipstick) Normal (Negative); Ketone, Urine Negative (Negative); Leukocyte Negative Leu/uL (Negative); Nitrite Negative (Negative); Protein, Urine (Dipstick) 30 mg/dL (Neg-Trace); Specific Gravity, Urine 1.022 (1.002-1.036); Squamous Epithelial 0-3 HPF (0-3); Urobilinogen Normal mg/dL (Less than 2); WBC/HPF 0-3 HPF (0-3)
[2020-08-13 22:02] LABS: RBC/HPF 0-3 HPF (0-3)
[2020-08-13 22:06] LABS: Amphetamine Not Detected (NotDetected); Barbiturates Screen Not Detected (NotDetected); Benzodiazepine Screen Detected (NotDetected); Cocaine Metabolite Screen Not Detected (NotDetected); Medtox Control Line Valid? VALID (VALID); Medtox Reader # READER 4; Methadone Not Detected (NotDetected); Methamphetamine Not Detected (NotDetected); Opiate Screen Not Detected (NotDetected); Oxycodone Screen Not Detected (NotDetected); Phencyclidine (PCP) Not Detected (NotDetected); THC/Cannabinoid Screen Not Detected (NotDetected); Tricyclic Screen Not Detected (NotDetected)
[2020-08-14 00:07] LABS: Lactic Acid 2.4 mmol/L (0.5-2.2)
[2020-08-14 00:42] VITALS: BMI 27.4
--- NOTE | 2020-08-14 01:39 | PDOC.HHP ---
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 apparently patient took accidentally multiple doses of his medication between 11am to 4pm. He denies any intentional overdose, he states he decided to take his medication but was not aware they had separed the pills for the whole week, caregiver usually gives him the medication. suspected medication he took was 15 mg of lisinopril, 500 g of cyclophosphamide 160 mg of pantoprazole 80 mg of prednisone 12 tabs of double strength Bactrim and 60 mg of Eliquis. he denies any systemic symptoms at this time. Hospitalist ROS - Review of Systems All other systems reviewed; all pertinent +/- noted in HPI/Subj Hospitalist History - Past Surgical History Other Surgical History: lypoma removed for hip vasectomy brain biopsy - Family History Family History: reports: no pertinent history - Social History Smoking Status: Never smoker Alcohol: reports: None (25 yeras sober per patient's ) Drugs: reports: none Living Situation: With Family - Exam General Appearance: NAD, awake alert Eye: PERRL, anicteric sclera ENT: normocephalic atraumatic, no oropharyngeal lesions Neck: supple, symmetric, no JVD Heart: RRR, no murmur, no gallops, no rubs Respiratory: CTAB, no wheezes, no rales, no ronchi, normal chest expansion Gastrointestinal: soft, non-tender, non-distended, normal bowel sounds Extremities: no cyanosis, no clubbing, 1+ LE edema Skin: normal turgor, no lesions, no rashes Neurological: hemiplegia, speech deficit Musculoskeletal: normal tone Psychiatric: normal affect, normal behavior Hospitalist Results - Labs Result Diagrams: 08/13/20 20:20 08/14/20 02:27 Lab results: WBC 4.9 thou/uL (4.8-10.8) 08/13/20 20:20 Hgb 12.2 g/dL (14.0-18.0) L 08/13/20 20:20 Hct 33.4 % (42.0-52.0) L 08/13/20 20:20 MCV 106.0 fL (78.0-98.0) H 08/13/20 20:20 Plt Count 228 thou/uL (130-400) 08/13/20 20:20 Neutrophils % 90.0 % (42.0-75.0) H 08/13/20 20:20 Sodium 136 mmol/L (136-145) 08/13/20 20:20 Potassium 4.6 mmol/L (3.5-5.1) 08/13/20 20:20 Chloride 103 mmol/L (98-107) 08/13/20 20:20 Carbon Dioxide 20 mmol/L (23-31) L 08/13/20 20:20 BUN 18 mg/dL (8.4-25.7) 08/13/20 20:20 Creatinine 1.05 mg/dL (0.7-1.3) 08/13/20 20:20 Glucose 146 mg/dL (80-115) H 08/13/20 20:20 Lactic Acid 2.4 mmol/L (0.5-2.2) H 08/13/20 23:39 Calcium 9.5 mg/dL (7.8-10.44) 08/13/20 20:20 Total Bilirubin 0.4 mg/dL (0.2-1.2) 08/13/20 20:20 AST 23 U/L (5-34) 08/13/20 20:20 ALT 38 U/L (8-55) 08/13/20 20:20 Alkaline Phosphatase 70 U/L (40-110) 08/13/20 20:20 Creatine Kinase 34 U/L (30-200) 08/13/20 20:20 Troponin I 0.010 ng/mL (< 0.028) 08/13/20 20:20 Serum Total Protein 5.7 g/dL (5.8-8.1) L 08/13/20 20:20 Albumin 4.0 g/dL (3.4-4.8) 08/13/20 20:20 Lipase 26 U/L (8-78) 08/13/20 20:20 Urine Ketones Negative mg/dL (Negative) 08/13/20 21:01 Urine Blood Negative (Negative) 08/13/20 21: Urine Nitrite Negative (Negative) 08/13/20 21:01 Ur Leukocyte Esterase Negative Faith/uL (Negative) 08/13/20 21:01 Urine RBC 0-3 HPF (0-3) 08/13/20 21:01 Urine WBC 0-3 HPF (0-3) 08/13/20 21:01 Ur Squamous Epith Cells 0-3 HPF (0-3) 08/13/20 21:01 Urine Bacteria None Seen HPF (None Seen) 08/13/20 21:01 Hospitalist H&P A/P - Problem (1) Accidental overdose Code(s): T50.901A - POISONING BY UNSP DRUG/MEDS/BIOL SUBST, ACCIDENTAL, INIT Status: Acute (2) Vasculitis, central nervous system Code(s): I77.6 - ARTERITIS, UNSPECIFIED Status: Acute (3) History of CVA (cerebrovascular accident) Code(s): Z86.73 - PRSNL HX OF TIA (TIA), AND CEREB INFRC W/O RESID DEFICITS Status: Acute (4) HTN (hypertension) Code(s): I10 - ESSENTIAL (PRIMARY) HYPERTENSION Status: Chronic Qualifiers: Hypertension type: essential hypertension Qualified Code(s): I10 - E ssential (primary) hypertension (5) Obesity (BMI 30.0-34.9) Code(s): E66.9 - OBESITY, UNSPECIFIED Status: Chronic - Plan Plan: 65y/o male with the stated pmhx who presents with accidental overdose of multiple medication overdose - discussed with poison control - cardiac monitoring - IV fluids - serial CMP's, - serial PT/INRs - watch for bleeding, if present would be an indication for [place] - holding all medications
[2020-08-14] MEDS ORDERED: Sodium Chloride 0.9% 1,000 ML IV SCH (01:45)
[2020-08-14 02:42] LABS: ALT (SGPT) 38 U/L (8-55); AST (SGOT) 21 U/L (5-34); Albumin 3.9 g/dL (3.4-4.8); Alkaline Phosphatase 63 U/L (40-110); Anion Gap 17 mmol/L (10-20); BUN (Urea Nitrogen) 18 mg/dL (8.4-25.7); Bilirubin, Total 0.4 mg/dL (0.2-1.2); Calc. Creatinine Clearance 93 mL/min (70-130); Calcium 9.6 mg/dL (7.8-10.44); Carbon Dioxide 18 mmol/L (23-31); Chloride 102 mmol/L (98-107); Estimated GFR-MDRD 76; Globulin 1.9 g/dL (2.4-3.5); Glucose 135 mg/dL (80-115); Potassium 4.7 mmol/L (3.5-5.1); Protein, Total 5.8 g/dL (5.8-8.1); Sodium 132 mmol/L (136-145)
[2020-08-14 04:44] LABS: INR-International Normal Ratio 1.6; PTT 30.8 sec (22.9-36.1); Prothrombin Time 19.3 sec (12.0-14.7)
[2020-08-14] MEDS ORDERED: Ondansetron ODT 4 MG TAB PO PRN (10:26)
[2020-08-14] MEDS ORDERED: Acetaminophen 325 MG TAB PO PRN (10:26)
[2020-08-14] MEDS ORDERED: Calcium Carbonate 500 MG ChewTAB PO PRN (10:26)
[2020-08-14] MEDS ORDERED: Ondansetron PF 4 MG/2 ML Vial IVP PRN (10:26)
[2020-08-14] MEDS: Sodium Chloride 0.9% 1,000 ML IV SCH ×2 (11:11→23:14)
[2020-08-14 12:02] LABS: SARS-CoV-2 MS2 Positive; SARS-CoV-2 N Gene Negative; SARS-CoV-2 S Gene Negative; SARS-CoV-2 by NAA Not Detected (NotDetected); SARS-CoV-2 orf1ab Negative
[2020-08-14 12:59] LABS: Bacteria/HPF None Seen HPF (None Seen); Bilirubin Negative (Negative); Blood, Urine 1+ (Negative); Clarity Turbid (Clear); Glucose, Urine (Dipstick) Normal (Negative); Ketone, Urine Negative (Negative); Leukocyte Negative Leu/uL (Negative); Nitrite Negative (Negative); Protein, Urine (Dipstick) 70 mg/dL (Neg-Trace); RBC/HPF Greater than 50 HPF (0-3); Specific Gravity, Urine 1.028 (1.002-1.036); Squamous Epithelial None Seen HPF (0-3); Urobilinogen Normal mg/dL (Less than 2)
[2020-08-14 13:45] LABS: #Eosinphils 0.1 thou/uL (0.0-0.7); #Lymphocytes 0.5 thou/uL (1.20-3.40); #Neutrophils 6.3 thou/uL (1.40-6.50); %Lymphocytes 5.9 % (21.0-51.0); %Monocytes 12.3 % (0.0-10.0); %Neutrophils 80.9 % (42.0-75.0); Hemoglobin 12.2 g/dL (14.0-18.0); Mean Corpuscular HGB CONC 34.9 g/dL (32.0-36.0); Mean Corpuscular Hemoglobin 37.6 pg (27.0-31.0); Mean Platelet Volume 6.4 fL (7.4-10.4); Platelet Count 253 thou/uL (130-400); RBC Distribution Width 14.7 % (11.5-14.5); Red Blood Cell (RBC) Count 3.25 mill/uL (4.70-6.10); White Blood Cell (WBC) Count 7.8 thou/uL (4.8-10.8)
[2020-08-14 14:56] LABS: ALT (SGPT) 34 U/L (8-55); AST (SGOT) 18 U/L (5-34); Albumin 3.9 g/dL (3.4-4.8); Alkaline Phosphatase 60 U/L (40-110); Anion Gap 14 mmol/L (10-20); BUN (Urea Nitrogen) 20 mg/dL (8.4-25.7); Bilirubin, Total 0.5 mg/dL (0.2-1.2); Calc. Creatinine Clearance 91 mL/min (70-130); Calcium 9.4 mg/dL (7.8-10.44); Carbon Dioxide 20 mmol/L (23-31); Chloride 102 mmol/L (98-107); Estimated GFR-MDRD 74; Globulin 1.9 g/dL (2.4-3.5); Glucose 114 mg/dL (80-115); Potassium 4.1 mmol/L (3.5-5.1); Protein, Total 5.8 g/dL (5.8-8.1); Sodium 132 mmol/L (136-145)
[2020-08-14] MEDS: Senokot S 8.6-50 MG TAB PO SCH (21:48)
[2020-08-14] MEDS: Famotidine 20 MG TAB PO SCH (21:49)
[2020-08-15 04:28] LABS: #Eosinphils 0.1 thou/uL (0.0-0.7); #Lymphocytes 0.3 thou/uL (1.20-3.40); #Monocytes 0.5 thou/uL (0.11-0.59); #Neutrophils 3.2 thou/uL (1.40-6.50); %Basophils 0.7 % (0.0-1.0); %Eosinophils 1.4 % (0.0-10.0); %Lymphocytes 6.3 % (21.0-51.0); %Monocytes 12.6 % (0.0-10.0); %Neutrophils 79.1 % (42.0-75.0); Hemoglobin 10.5 g/dL (14.0-18.0); Mean Corpuscular HGB CONC 35.5 g/dL (32.0-36.0); Mean Corpuscular Hemoglobin 37.3 pg (27.0-31.0); Mean Platelet Volume 6.2 fL (7.4-10.4); Platelet Count 205 thou/uL (130-400); RBC Distribution Width 14.8 % (11.5-14.5); Red Blood Cell (RBC) Count 2.82 mill/uL (4.70-6.10); White Blood Cell (WBC) Count 4.1 thou/uL (4.8-10.8)
[2020-08-15 04:33] LABS: INR-International Normal Ratio 1.2
[2020-08-15 04:44] LABS: Lactic Acid 0.6 mmol/L (0.5-2.2)
[2020-08-15 04:51] LABS: ALT (SGPT) 29 U/L (8-55); AST (SGOT) 15 U/L (5-34); Albumin 3.3 g/dL (3.4-4.8); Alkaline Phosphatase 49 U/L (40-110); Anion Gap 12 mmol/L (10-20); BUN (Urea Nitrogen) 18 mg/dL (8.4-25.7); Bilirubin, Total 0.6 mg/dL (0.2-1.2); Calc. Creatinine Clearance 91 mL/min (70-130); Calcium 8.6 mg/dL (7.8-10.44); Carbon Dioxide 21 mmol/L (23-31); Chloride 103 mmol/L (98-107); Estimated GFR-MDRD 74; Globulin 1.5 g/dL (2.4-3.5); Glucose 90 mg/dL (80-115); Magnesium 1.8 mg/dL (1.6-2.6); Potassium 4.1 mmol/L (3.5-5.1); Protein, Total 4.8 g/dL (5.8-8.1); Sodium 132 mmol/L (136-145)
[2020-08-15] MEDS: Sodium Chloride 0.9% 1,000 ML IV SCH ×2 (05:38→12:21)
[2020-08-15] MEDS: Famotidine 20 MG TAB PO SCH (08:41)
[2020-08-15] MEDS: Senokot S 8.6-50 MG TAB PO SCH (08:41)
[2020-08-15 11:26] VITALS: BP 129/89; TEMP 98.5
--- NOTE | 2020-08-15 12:07 | PDOC.DS.DS ---
Provider - Provider Date of Admission: 08/13/20 21:35 Date of Discharge: 08/15/20 Admitting Provider: Earnest Dunaway Primary Care Physician: Alexander Narvaez MD Course - Hospital Course Resuscitation Status: 08/14/20 01:35 Resuscitation Status Routine Resuscitation Status: FULL: Full Resuscitation - Labs Lab Results: 08/15/20 04:16 08/15/20 04:16 Abnormal Lab Results - Last 48 hrs 08/13/20 20:20: Carbon Dioxide 20 L, Serum Total Protein 5.7 L, Globulin 1.7 L, Albumin/Globulin Ratio 2.4 H 08/13/20 20:20: RBC 3.14 L, Hgb 12.2 L, Hct 33.4 L, MCV 106.0 H, MCH 38.8 H, MCHC 36.4 H, MPV 6.4 L, Neutrophils % 90.0 H, Lymphocytes % 4.0 L, Lymphocytes # 0.2 L, Monocytes # 0.1 L 08/13/20 20:20: Salicylates Less than 8.0 L, Acetaminophen Less than 6.0 L 08/13/20 20:20: PT 21.0 H 08/13/20 20:39: Lactic Acid 2.6 H 08/13/20 21:01: U Benzodiazepines Scrn Detected H 08/13/20 21:01: Urine Clarity Turbid A, Urine Protein 30 A, Amorphous Crystals 1+ A, Hyaline Casts 4-6 A 08/13/20 23:39: Lactic Acid 2.4 H 08/14/20 02:27: Sodium 132 L, Carbon Dioxide 18 L, Globulin 1.9 L 08/14/20 04:14: PT 19.3 H 08/14/20 12:02: Urine Clarity Turbid A, Urine Protein 70 A, Urine Blood 1+ A, Urine RBC Greater than 50 A, Urine WBC 4-6 A 08/14/20 13:36: Sodium 132 L, Carbon Dioxide 20 L, Globulin 1.9 L 08/14/20 13:36: RBC 3.25 L, Hgb 12.2 L, Hct 35.0 L, MCV 108.0 H, MCH 37.6 H, RDW 14.7 H, MPV 6.4 L, Neutrophils % 80.9 H, Lymphocytes % 5.9 L, Monocytes % 12.3 H, Lymphocytes # 0.5 L, Monocytes # 1.0 H 08/15/20 04:16: Sodium 132 L, Carbon Dioxide 21 L, Serum Total Protein 4.8 L, Albumin 3.3 L, Globulin 1.5 L 08/15/20 04:16: WBC 4.1 L, RBC 2.82 L, Hgb 10.5 L, Hct 29.6 L, MCV 105.0 H, MCH 37.3 H, RDW 14.8 H, MPV 6.2 L, Neutrophils % 79.1 H, Lymphocytes % 6.3 L, Monocytes % 12.6 H, Lymphocytes # 0.3 L 08/15/20 04:16: PT 15.0 H - Physical Exam Vitals: Vital Signs (12 hours) Temp Pulse Pulse Resp BP BP Pulse Ox 08/15/20 11:25 98.5 F 94 16 129/89 99 08/15/20 08:45 89 137/80 08/15/20 07:55 98.6 F 89 16 124/79 97 08/15/20 04:00 98.9 F 84 20 117/75 Weight Admit Weight 191 lb 8 oz Weight 191 lb 8 oz Physical Exam: The patient was seen and examined on the day of discharge. Denies any chest pain or shortness of breath. Vital signs are stable. S1 and S2 are heard, regular. Lungs are clear to auscultation bilaterally. Problem - Discharge Plan Assessment: Discharge diagnosis: 1. Accidental overdose 2. Hyponatremia 3. COVID-19 PCR test negative Hospital course: Patient is a pleasant 65-year-old gentleman who was admitted to the hospital on August 13, 2020 for accidental overdose of multiple medications, possibly including lisinopril, cyclophosphamide, pantoprazole, prednisone, Bactrim and apixaban. He was monitored on telemetry and remained stable. He is being discharged home in a stable condition. He has been advised to resume apixaban with the morning dose on 2019. Otherwise, no change was made to his preadmission home medications. Many thanks for allowing me to participate in your patient's care. Please feel free to contact me with any questions or concerns Discharge destination: Home Total amount of time spent coordinating this discharge: 22 minutes. Plan - Discharge Medications Home Medications: Medication Instructions Recorded Confirmed Type Gabapentin 300 mg PO QPM 10/14/19 08/14/20 History Lisinopril [Zestril] 5 mg PO DAILY 10/14/19 08/14/20 History Pantoprazole [Protonix] 40 mg PO DAILY #0 tab 10/30/19 08/14/20 Rx Cyanocobalamin (Vitamin B-12) 1,000 mcg PO DAILY tab 02/16/20 08/14/20 Rx [Vitamin B-12] Ascorbic Acid [Vitamin C] tablet PO DAILY 08/14/20 History Calcium Citrate tablet PO QPM 08/14/20 History Cholecalciferol (Vitamin D3) 5,000 units PO QAM 08/14/20 08/14/20 History [Vitamin D3] Cyclophosphamide [Cytoxan] 50 mg PO BID 08/14/20 08/14/20 History Prednisone [predniSONE 10 mg 20 mg PO QAM 08/14/20 08/14/20 History Dosepak] Sulfamethoxazole/Trimethoprim 1 tablet PO DAILY 08/14/20 08/14/20 History [Sulfamethoxazole-Tmp Ds Tablet] Zinc 50 mg PO DAILY 08/14/20 08/14/20 History Apixaban [Eliquis] 5 mg PO BID #60 tab 08/15/20 08/14/20 Rx Allergies: Latex, Natural Rubber Allergy (Verified 08/14/20 00:29) - Discharge Instructions Discharge Instructions:: Resume apixaban with the morning dose on August 16, 2020. Follow up with outpatient PT. Activity:: Activity as Tolerated Nourishment:: Heart Healthy Diet - Follow up Plan Referrals: Alexander Narvaez MD [Primary Care Provider] - 3 Days (Please follow up with your primary care provider in 3 days. Call the office to schedule an appointment.) Disposition: HOME Quality - Care Measures CORE MEASURES:: N/A
[2020-08-17 14:01] LABS: Base Excess-Venous -0.5 mmol/L (-2.0 to 3.0); Bicarbonate (HCO3v) 24.2 mmol/L (22.0-28.0); CO2 Tension (PvCO2) 39.3 mmHg (40.0-50.0); vO2 Saturation-calc 43.3 % (60.0-85.0)
[2020-08-17 14:02] LABS: Calcium, Ionized 1.22 mmol/L (1.15-1.33); Chloride 101 mmol/L (98-107); Hemoglobin - Calc 11.1 g/dL (14.0-18.0); Potassium 4.7 mmol/L (3.5-5.1); Sodium 133 mmol/L (138-145); T. Carbon Dioxide 25.5 mmol/L (22.0-28.0)
--- NOTE | 2020-08-22 15:07 | EKG ---
Test Reason : Blood Pressure : / mmHG Vent. Rate : 091 BPM Atrial Rate : 091 BPM P-R Int : 148 ms QRS Dur : 086 ms QT Int : 368 ms P-R-T Axes : 046 035 072 degrees QTc Int : 452 ms Sinus rhythm with Premature atrial complexes Nonspecific T wave abnormality Abnormal ECG Confirmed by PENG LI ([id number]), map editor KARI FLORES ([id number]) on 08/22/2020 3:07:16 PM Referred By: Confirmed By:PENG LI
== END 2020-08-15 13:50 | disposition home or self-care (01) | DRG 918 ==
LOC: ERS 20:05 → 2NO 21:35
PROVIDERS: ADMIT Internal Medicine; ATTEND Internal Medicine
DX: T46.4X1A Poisoning by angiotensin-converting-enzyme inhibitors, accidental (unintentional), initial encounter (principal); E87.1 Hypo-osmolality and hyponatremia; T45.1X1A Poisoning by antineoplastic and immunosuppressive drugs, accidental (unintentional), initial encounter; T47.1X1A Poisoning by other antacids and anti-gastric-secretion drugs, accidental (unintentional), initial encounter; T38.0X1A Poisoning by glucocorticoids and synthetic analogues, accidental (unintentional), initial encounter; T36.8X1A Poisoning by other systemic antibiotics, accidental (unintentional), initial encounter; Z20.828 Contact with and (suspected) exposure to other viral communicable diseases; F32.9 Major depressive disorder, single episode, unspecified; I10 Essential (primary) hypertension; E66.9 Obesity, unspecified; I77.6 Arteritis, unspecified; Z79.01 Long term (current) use of anticoagulants; Z91.040 Latex allergy status; Z86.73 Personal history of transient ischemic attack (TIA), and cerebral infarction without residual deficits; Z79.899 Other long term (current) drug therapy; Z68.27 Body mass index [BMI] 27.0-27.9, adult
CPT/HCPCS: 36415; 80053; 80306; 80307; 81001; 81003; 81015; 82330; 82435; 82550; 82803; 83605; 83690; 83735; 84132; 84295; 84484; 85014; 85025; 85610; 85730; 87635; 93005; U0003

== ENCOUNTER 2021-02-27 20:28 | Inpatient (IN) | payer BC ==
[~2021-02-27 20:28] MED LIST: Iopamidol-370 76% 500 ML 1 ML ONE
[2021-02-27 21:12] LABS: #Basophils 0.1 thou/uL (0.0-0.2); #Eosinphils 0.1 thou/uL (0.0-0.7); #Lymphocytes 0.4 thou/uL (1.20-3.40); #Monocytes 1.3 thou/uL (0.11-0.59); #Neutrophils 13.2 thou/uL (1.40-6.50); %Basophils 0.4 % (0.0-1.0); %Eosinophils 0.4 % (0.0-10.0); %Lymphocytes 2.8 % (21.0-51.0); %Monocytes 8.4 % (0.0-10.0); Hemoglobin 12.2 g/dL (14.0-18.0); Mean Corpuscular HGB CONC 34.6 g/dL (32.0-36.0); Mean Corpuscular Hemoglobin 33.5 pg (27.0-31.0); Mean Corpuscular Volume 96.7 fL (78.0-98.0); Mean Platelet Volume 6.7 fL (7.4-10.4); Platelet Count 287 thou/uL (130-400); RBC Distribution Width 15.4 % (11.5-14.5); Red Blood Cell (RBC) Count 3.63 mill/uL (4.70-6.10)
[2021-02-27 21:32] LABS: ALT (SGPT) 20 U/L (8-55); AST (SGOT) 17 U/L (5-34); Albumin 4.1 g/dL (3.4-4.8); Alkaline Phosphatase 63 U/L (40-110); Anion Gap 15 mmol/L (10-20); BUN (Urea Nitrogen) 19 mg/dL (8.4-25.7); Bilirubin, Total 1.2 mg/dL (0.2-1.2); Calc. Creatinine Clearance 0 mL/min (70-130); Calcium 9.8 mg/dL (7.8-10.44); Carbon Dioxide 24 mmol/L (23-31); Chloride 104 mmol/L (98-107); Globulin 2.6 g/dL (2.4-3.5); Glucose 147 mg/dL (80-115); Protein, Total 6.7 g/dL (5.8-8.1); Sodium 139 mmol/L (136-145)
[2021-02-27] MEDS ORDERED: cefTRIAXone\\ROCEPHIN 1 GM VIAL ONE (21:40)
[2021-02-27] MEDS ORDERED: Acetaminophen 500 MG TAB ONE (22:03)
[2021-02-27 22:35] LABS: Bacteria/HPF None Seen HPF (None Seen); Bilirubin Negative (Negative); Blood, Urine 2+ (Negative); Clarity Clear (Clear); Glucose, Urine (Dipstick) Normal (Negative); Ketone, Urine 10 mg/dL (Negative); Leukocyte Negative Leu/uL (Negative); Mucous/LPF Rare LPF (<2+); Nitrite Negative (Negative); Protein, Urine (Dipstick) Negative (Neg-Trace); RBC/HPF 21-50 HPF (0-3); Specific Gravity, Urine 1.026 (1.002-1.036); Squamous Epithelial None Seen HPF (0-3); Urobilinogen Normal mg/dL (Less than 2); WBC/HPF 0-3 HPF (0-3)
[2021-02-27] MEDS ORDERED: Piperacillin/Tazobactam 4.5 GM VIAL ONE (22:49)
[2021-02-27 23:22] LABS: SARS-CoV-2 NAA Rapid Test Not Detected (NotDetected)
[2021-02-28] MEDS ORDERED: Morphine 4 MG/ML VIAL SLOW IVP PRN (02:38)
[2021-02-28] MEDS: Lactated Ringer's 1,000 ML IV SCH ×4 (02:54→16:55)
[2021-02-28 04:15] VITALS: BMI 30.4
[2021-02-28] MEDS ORDERED: Piperacillin/Tazobactam 3.375 GM in Sodium Chloride 0.9% 100 ML IVPB SCH ×3 (06:00→14:00)
[2021-02-28] MEDS ORDERED: Fentanyl 100 MCG/2 ML VIAL ONE ×3 (07:23→11:22)
[2021-02-28] MEDS ORDERED: Bupivacaine 0.25% HCL 30 ML VIAL ONE (07:30)
[2021-02-28] MEDS ORDERED: Lidocaine 1% w/Epinephrine 1:100K 20 ML VIAL ONE (07:30)
[2021-02-28] MEDS ORDERED: Lidocaine 1% PF 5 ML VIAL ONE (09:47)
[2021-02-28] MEDS ORDERED: PROPOFOL 200 MG/20 ML VIAL ONE (09:47)
[2021-02-28] MEDS ORDERED: Calcium Chloride 1 GM/10 ML Abboject SYRINGE ONE (09:47)
[2021-02-28] MEDS ORDERED: Dexamethasone 20 MG/5 ML VIAL ONE (09:47)
[2021-02-28] MEDS ORDERED: Rocuronium Bromide 10 MG/ML (10ML VIAL) ONE (09:47)
[2021-02-28] MEDS ORDERED: PHENYLEPHRINE-NS 100 MCG/ML 10 ML SYRINGE ONE (09:47)
[2021-02-28] MEDS ORDERED: Succinylcholine 200 MG/10 ml SYRINGE FS ONE (09:47)
[2021-02-28] MEDS ORDERED: Ondansetron PF 4 MG/2 ML Vial ONE (09:47)
[2021-02-28] MEDS ORDERED: Glycopyrrolate 0.2 MG/ML 5 ML SYRINGE ONE (09:47)
[2021-02-28] MEDS ORDERED: Piperacillin/Tazobactam 3.375 GM VIAL ONE (10:11)
[2021-02-28] MEDS ORDERED: Promethazine HCl 25 MG/ML VIAL SLOW IVP PRN (11:21)
[2021-02-28] MEDS ORDERED: Ondansetron HCl/PF 4 MG/2 ML Vial IVP PRN (11:21)
[2021-02-28] MEDS ORDERED: Promethazine HCl 25 MG/ML VIAL IM PRN ×2 (11:21→11:27)
[2021-02-28] MEDS ORDERED: PACU-Morphine 4MG/ML VIAL SLOW IVP PRN (11:21)
[2021-02-28] MEDS ORDERED: hydrALAZINE 20 MG/ML VIAL SLOW IVP PRN (11:27)
[2021-02-28] MEDS ORDERED: Morphine 2 MG/ML VIAL SLOW IVP PRN (11:27)
[2021-02-28] MEDS ORDERED: Dextrose 5% in Water 1,000 ML IV PRN (11:27)
[2021-02-28] MEDS ORDERED: Dextrose 50% Abboject 50 ML SYRINGE SLOW IVP PRN (11:27)
[2021-02-28] MEDS ORDERED: Ondansetron PF 4 MG/2 ML Vial IVP PRN (11:27)
[2021-02-28] MEDS ORDERED: Ketorolac Tromethamine 30 MG/ML VIAL IVP SCH (12:00)
[2021-02-28] MEDS: Ketorolac Tromethamine 30 MG/ML VIAL IVP SCH ×2 (14:34→22:17)
[2021-02-28] MEDS: Piperacillin/Tazobactam 3.375 GM in Sodium Chloride 0.9% 100 ML IVPB SCH ×2 (16:51→22:14)
[2021-02-28] MEDS: Morphine 4 MG/ML VIAL SLOW IVP PRN ×2 (17:24→22:17)
[2021-02-28] MEDS: Famotidine 20 MG TAB PO SCH (21:56)
[2021-02-28] MEDS: Famotidine/PF 20 mg/2ml Vial SLOW IVP SCH (22:13)
[2021-03-01] MEDS: Ketorolac Tromethamine 30 MG/ML VIAL IVP SCH ×4 (03:34→20:38)
[2021-03-01] MEDS: Piperacillin/Tazobactam 3.375 GM in Sodium Chloride 0.9% 100 ML IVPB SCH ×4 (03:34→21:59)
[2021-03-01] MEDS: Morphine 4 MG/ML VIAL SLOW IVP PRN (03:34)
[2021-03-01] MEDS ORDERED: Sodium Chloride 0.9% 1,000 ML IV SCH (04:15)
[2021-03-01 04:40] LABS: Hemoglobin 11.2 g/dL (14.0-18.0); Mean Corpuscular Hemoglobin 34.3 pg (27.0-31.0); Mean Corpuscular Volume 98.2 fL (78.0-98.0); Mean Platelet Volume 6.9 fL (7.4-10.4); Platelet Count 235 thou/uL (130-400); Red Blood Cell (RBC) Count 3.26 mill/uL (4.70-6.10); White Blood Cell (WBC) Count 12.2 thou/uL (4.8-10.8)
[2021-03-01 04:55] LABS: Anion Gap 12 mmol/L (10-20); BUN (Urea Nitrogen) 20 mg/dL (8.4-25.7); Calc. Creatinine Clearance 80 mL/min (70-130); Calcium 8.8 mg/dL (7.8-10.44); Carbon Dioxide 23 mmol/L (23-31); Chloride 105 mmol/L (98-107); Glucose 112 mg/dL (80-115); Potassium 3.9 mmol/L (3.5-5.1); Sodium 136 mmol/L (136-145)
[2021-03-01 05:10] LABS: Lymphocytes 3 % (21-51); MDiff Complete? YES; Monocytes 3 % (0-10); Neutrophil 94 % (42-75); Platelet Morphology Comment Appears Adequate
[2021-03-01] MEDS: Lactated Ringer's 1,000 ML IV SCH ×4 (06:10→20:38)
[2021-03-01] MEDS: Famotidine/PF 20 mg/2ml Vial SLOW IVP SCH ×2 (07:44→20:36)
[2021-03-01] MEDS: Famotidine 20 MG TAB PO SCH ×2 (07:52→20:35)
[2021-03-01] MEDS ORDERED: Hydrocortisone Sod Succ/PF 100 mg/2 ml Vial IVP SCH (15:45)
[2021-03-01] MEDS: Gabapentin 100 MG CAP PO SCH (20:35)
[2021-03-01] MEDS: predniSONE 5 MG TAB PO SCH (20:35)
[2021-03-02] MEDS: Ketorolac Tromethamine 30 MG/ML VIAL IVP SCH ×3 (01:27→13:52)
[2021-03-02] MEDS: Lactated Ringer's 1,000 ML IV SCH ×3 (03:13→13:56)
[2021-03-02] MEDS: Piperacillin/Tazobactam 3.375 GM in Sodium Chloride 0.9% 100 ML IVPB SCH ×4 (03:13→21:30)
[2021-03-02 06:36] LABS: #Lymphocytes 0.5 thou/uL (1.20-3.40); #Monocytes 0.5 thou/uL (0.11-0.59); %Eosinophils 0.1 % (0.0-10.0); %Lymphocytes 5.7 % (21.0-51.0); %Monocytes 5.1 % (0.0-10.0); %Neutrophils 89.1 % (42.0-75.0); Hemoglobin 9.3 g/dL (14.0-18.0); Mean Corpuscular HGB CONC 33.2 g/dL (32.0-36.0); Mean Corpuscular Hemoglobin 32.5 pg (27.0-31.0); Mean Corpuscular Volume 98.1 fL (78.0-98.0); Mean Platelet Volume 7.3 fL (7.4-10.4); Platelet Count 218 thou/uL (130-400); RBC Distribution Width 14.7 % (11.5-14.5); Red Blood Cell (RBC) Count 2.87 mill/uL (4.70-6.10)
[2021-03-02] MEDS: Furosemide 40 MG TAB PO SCH (09:19)
[2021-03-02] MEDS: predniSONE 5 MG TAB PO SCH ×2 (09:19→21:18)
[2021-03-02] MEDS: Potassium Chloride 20 MEQ TAB PO SCH (09:19)
[2021-03-02] MEDS: Famotidine/PF 20 mg/2ml Vial SLOW IVP SCH ×2 (09:20→21:19)
[2021-03-02] MEDS: Gabapentin 100 MG CAP PO SCH ×2 (09:20→21:18)
[2021-03-02] MEDS: HYDROcodone/Acetaminophen 10/325 mg Tablet PO PRN ×2 (09:20→16:57)
[2021-03-02] MEDS: Famotidine 20 MG TAB PO SCH ×2 (09:20→21:18)
[2021-03-02] MEDS ORDERED: Magnesium Citrate 300 ML BOT PO SCH (17:30)
[2021-03-03] MEDS: Piperacillin/Tazobactam 3.375 GM in Sodium Chloride 0.9% 100 ML IVPB SCH ×3 (04:57→16:42)
[2021-03-03] MEDS ORDERED: Magnesium Citrate 300 ML BOT PO SCH (07:30)
[2021-03-03] MEDS ORDERED: Fleet Enema 133 ML BOT FS SCH (07:30)
[2021-03-03] MEDS: Gabapentin 100 MG CAP PO SCH (08:27)
[2021-03-03] MEDS: predniSONE 5 MG TAB PO SCH (08:27)
[2021-03-03] MEDS: Famotidine 20 MG TAB PO SCH (08:27)
[2021-03-03] MEDS: Furosemide 40 MG TAB PO SCH (08:28)
[2021-03-03] MEDS: Potassium Chloride 20 MEQ TAB PO SCH (08:28)
[2021-03-03] MEDS: Famotidine/PF 20 mg/2ml Vial SLOW IVP SCH (08:28)
[2021-03-03 16:12] VITALS: BP 124/87; TEMP 98.1
== END 2021-03-03 16:15 | disposition home health service (06) | DRG 339 ==
LOC: ERS 20:28 → SURG A 23:35 → OBSVTOIN 02-28 11:27
PROVIDERS: ADMIT Specialist; ATTEND Specialist
PROC: 0DTJ4ZZ Resection of Appendix, Percutaneous Endoscopic Approach (ICD-10-PCS; principal; 2021-02-28)
DX: K35.33 Acute appendicitis with perforation, localized peritonitis, and gangrene, with abscess (principal); I69.351 Hemiplegia and hemiparesis following cerebral infarction affecting right dominant side; Z20.822 Contact with and (suspected) exposure to COVID-19; I69.320 Aphasia following cerebral infarction; Z79.52 Long term (current) use of systemic steroids; Z79.01 Long term (current) use of anticoagulants; Z79.899 Other long term (current) drug therapy; Z98.52 Vasectomy status; Z91.040 Latex allergy status; Z86.718 Personal history of other venous thrombosis and embolism
CPT/HCPCS: 0240U; 36415; 51701; 71045; 74177; 80048; 80053; 81003; 81015; 83605; 85025; 87040; 87070; 87077; 87086; 87186; 87205; 88304; 93005; 96365; 96366; 96367; 96375; G0378; J0696; J1100; J1720; J1885; J2270; J2405; J2543; J2704; J3010; J3490; J7512; Q9967; S0020; S0028

== ENCOUNTER 2022-02-03 13:08 | Outpatient (CLI) | payer MEDICARE, OTHER | END 2022-02-03 13:09 | disposition home or self-care (01) | LOC: SCSMRI 13:08 → BICMRI 13:09 | PROVIDERS: ATTEND Internal Medicine Rheumatology | DX: I77.6 Arteritis, unspecified (principal) | CPT/HCPCS: 70544 ==

== ENCOUNTER 2022-03-03 12:57 | Outpatient (CLI) | payer MEDICARE, OTHER | END 2022-03-03 12:58 | disposition home or self-care (01) | LOC: MRI 12:57 | PROVIDERS: ATTEND Internal Medicine Rheumatology | DX: I77.6 Arteritis, unspecified (principal); I65.03 Occlusion and stenosis of bilateral vertebral arteries; I65.1 Occlusion and stenosis of basilar artery | CPT/HCPCS: 70496; 70553; 82565 ==

== ENCOUNTER 2023-02-16 15:15 | Outpatient (CLI) | payer MEDICARE, OTHER | END 2023-02-16 15:16 | disposition home or self-care (01) | LOC: BICRAD 15:15 | PROVIDERS: ATTEND Internal Medicine Rheumatology | DX: M17.0 Bilateral primary osteoarthritis of knee (principal) ==